=== PATIENT | male | born 1950 | race Caucasian/White ===

== ENCOUNTER 2024-10-12 14:04 | Emergency (ER) | payer MEDICAID, OTHER, SELFPAY ==
[2024-10-12] VITALS (8 sets, daily range): BP systolic 106–152; BP diastolic 56–82; PULSE 73–86; RESP 16–20; TEMP 36.3–37.1; O2SAT 94–98; BMI 30.8
--- NOTE | 2024-10-12 | ECG_ITS ---
Test Reason : sob Blood Pressure : */* mmHG Vent. Rate : 78 BPM Atrial Rate : 78 BPM P-R Int : 142 ms QRS Dur : 76 ms QT Int : 336 ms P-R-T Axes : 81 72 59 degrees QTcB Int : 383 ms Normal sinus rhythm Normal ECG No previous ECGs available Referred By: Brittney Echevarria Electronically Signed By: NISHA ANDREW
--- NOTE | ~2024-10-12 | XR_ITS ---
CLINICAL HISTORY: cough, r o pna 1 view chest x-ray Comparison: None Findings: The lungs are clear. Normal size heart. No acute fracture. IMPRESSION: 1. No acute findings. This document has been electronically signed by: Iram Wylie MD on 10/12/2024 16:59:03
[2024-10-12 15:13] LABS: MANUAL DIFF FLAG NO
[2024-10-12 15:18] LABS: Basophils Percent Auto 0.3 % (0-2); Eosinophils Absolute Auto 0.1 X10*3/uL (0.0-0.4); Eosinophils Percent Auto 0.6 % (0-4); Hematocrit 40.4 % (42.0-52.0); Hemoglobin 13.5 g/dl (14.0-18.0); Imm Gran Abs Auto 0.03 X10*3/uL (0.00-0.03); Imm Gran Pct Auto 0.4 % (0.0-0.4); Lymphocytes Absolute Auto 3.4 X10*3/uL (1.2-4.9); Lymphocytes Percent Auto 42.9 % (20-40); Mean Corpuscular HGB Conc 33.4 g/dl (31.0-36.0); Mean Corpuscular Hemoglobin 29.3 pg (27.0-33.0); Mean Corpuscular Volume 87.8 fL (80.0-98.0); Mean Platelet Volume 9.2 fL (9.4-12.4); Monocytes Absolute Auto 0.9 X10*3/uL (0.1-1.2); Monocytes Percent Auto 10.9 % (2-11); Neutrophils Absolute Auto 3.5 x10*3/uL (2.0-8.3); Neutrophils Percent Auto 44.9 % (45-73); Platelet Count 232 X10*3/uL (160-400); Red Cell Distribution Width 12.8 % (11.0-16.0); White Blood Count 7.8 X10*3/uL (4.8-10.8)
[2024-10-12 15:37] LABS: Alanine Aminotransferase 26 U/L (0-40); Albumin Level 3.6 g/dL (3.5-5.0); Anion Gap 11 (12-20); Aspartate Amino Transferase 24 U/L (5-37); Bilirubin Total 0.2 mg/dL (0.0-1.0); Blood Urea Nitrogen 20 mg/dL (9-16); Calcium 8.9 mg/dL (8.4-10.2); Carbon Dioxide 27 mmol/L (22-29); Chloride 103 mmol/L (96-108); Creatinine Clr Calc Pharmacy 90.4; Estimated Glomerular Filt Rate > 60; Glucose Random 127 mg/dL (60-115); Potassium 3.4 mmol/L (3.3-5.1); Sodium 138 mmol/L (135-145); Total Protein 7.2 g/dL (6.5-8.0)
--- NOTE | 2024-10-12 15:52 | MHC.EDTECH ---
This pct assumed care of Patient at 1500 ,vitals taken ,Patient resting quietly in bed ,no apparent distress noted ,Plan of care continue .Call swain within Pt reach .
[2024-10-12 15:53] LABS: Alkaline Phosphatase 76 U/L (39-117)
--- OUTSIDE RECORDS SUMMARY | 2024-10-12 16:09 | XMS_ITS | Clinical Summary ---
Author Organization [employer] Address [address] [facility] [address] [place] [address] Care Team Providers Care Senior Scrum Master Name Role Phone Unavailable Primary Care Provider Unavailabl e Medications No known medications Active Problems Problem Noted Date Diagnosed Date Fibromyalgia 10/12/2024 Assessment & Plan (10/12/2024 1:42 PM EST): Reported hx of fibromyalgia treated oversees. Ran out of medication and been waiting for new patient appt to establish care. Discussed and given reassurance pt is on new patient list at [facility]. Hearing loss 10/12/2024 Vision loss 10/12/2024 Hemoptysis 10/12/2024 Assessment & Plan (10/12/2024 1:40 PM EST): Cough x2 weeks that keeps worsening with recent hemoptysis. On exam pt is tachypneic, hypoxic with O2 SAT 94%, involving accessory muscle use and seemingly in respiratory distress. Blood pressure is soft. Given above mentioned respiratory symptoms and presentation along th age will send pt to [facility] ER for further evaluation and treatment. Respiratory distress determined by examination 0 10/12/2024 Assessment & Plan (10/12/2024 1:41 PM EST): Pt is tachypneic, hypoxic with O2 SAT 94%, involving accessory muscle use and appears to be in acute respiratory distress. Will send to [facility] ER for further evaluation and treatment. Encounters Date Type Department Care Team Description 10/12/2024 1:20 PM EST Office Visit [facility] [address] [place] [address] Katelin Chaudhary MD Hemoptysis (Primary Dx); Respiratory distress determined by examination; Fibromyalgia 10/11/2024 Telephone [facility] [address] [place] [address] Gumaro Arana MD new pt from Last 3 Months Social History Tobacco Use Types Packs/Day Years Used Date Smoking Tobacco: Never Assessed Sex and Gender Information Value Date Recorded Sex Assigned at Male 10/12/2024 10:54 AM EST Legal Sex Male 1:26 PM EST Gender Identity Male 10/12/2024 10:54 AM EST Sexual Orientation Straight 10/12/2024 10 :54 AM EST Last Filed Vital Signs Vital Sign Reading Time Taken Comments Blood Pressure 138/80 10/12/2024 1:16 PM EST Pulse 104 10/12/2024 1:16 PM EST Temperature 36 ??C (96.8 ??F) 10/12/2024 1:16 PM EST Respiratory Rate 32 10/12/2024 1:16 PM EST Oxygen Saturation 94% 10/12/2024 1:16 PM EST Inhaled Oxygen Concentration - - Weight 72.7 kg (160 lb 3.2 oz) 10/12/2024 1:16 P M EST Height - - Body Mass Index - - Plan of Treatment Health Maintenance Due Date Last Done Comments CT Colonography 1950 Colonoscopy 1950 Colorectal Cancer Screening 1950 Depression Screening 1950 FIT DNA/Cologuard 1950 FIT 1950 FOBT 1950 Lipid Panel 1950 SDOH Screening 1950 Sigmoidoscopy 1950 Alcohol/Substance Use Screening 1962 Tobacco Screening 1962 Hepatitis C Screening 1968 DTaP/Tdap/Td Vaccines (1 - Tdap) 1969 Zoster Vaccines (1 of 2) 2000 Pneumococcal Vaccine: 65+ Ye ars (1 of 1 - PCV) 2015 COVID-19 Vaccine ( - 2023-2 5 season) 2024 Influenza Vaccine (#1) 2024 RSV Patients and Pa tients Aged 60 years or older (1 - 1-dose 75+ series) 2025 HIB Vaccines Aged Out No longer eligi ble based on patient's age to complete this topic HPV Vaccines Aged Out No longer eligi ble based on patient's age to complete this topic Hepatitis A Vaccines Aged Out No long er eligible based on patient's age to complete this topic Hepatitis B Vaccines Aged Out No long er eligible based on patient's age to complete this topic IPV Vaccines Aged Out No longer eligi ble based on patient's age to complete this topic Meningococcal Vaccine Aged Out No killian tyler eligible based on patient's age to complete this topic RSV under 20 months Aged Out No longe r eligible based on patient's age to complete this topic Rotavirus Vaccines Aged Out No longer eligible based on patient's age to complete this topic Insurance [employer] [facility]
--- OUTSIDE RECORDS SUMMARY | 2024-10-12 16:09 | XMS_ITS | Encounter Summary ---
Author Organization [employer] Address [address] [facility] [address] [place] [address] Care Team Providers Care Rv Repair Technician Name Role Phone Unavailable Primary Care Provider Unavailabl e Reason for Visit * Reason Onset Date Comments new pt 10/11/2024 Encounter Details Date Type Department Care Team (Late st Contact Info) Description 10/11/2024 Telephone [facility] [address] [place], [place] [phone] Gumaro Arana MD [address] [place], [place] [phone] new pt Social History Tobacco Use Types Packs/Day Years Used Date Smoking Tobacco: Never Assessed Sex and Gender Information Value Date Recorded Sex Assigned at Male 10/12/2024 10:54 AM EST Legal Sex Male 1:26 PM EST Gender Identity Male 10/12/2024 10:54 AM EST Sexual Orientation Straight 10/12/2024 10 :54 AM EST documented as of this encounter Miscellaneous Notes * Telephone Encounter - Albania Puentes - 10/11/2024 3:36 PM EST Patient added to [facility] new patient wait list as of 10/11/24. * Telephone Encounter - Umesh Ferguson - 10/11/2024 1:29 PM EST TC from caller requesting NEW PATIENT visit . DX : daughter said a couple Medical Concern: Hearing issues Vision Loss Fibromyalgia Insurance name : [employer] Location : [place] Demographic information updated documented in this encounter Plan of Treatment Not on file documented as of this encounter Visit Diagnoses Not on filedocumented in this encounter
--- OUTSIDE RECORDS SUMMARY | 2024-10-12 16:09 | XMS_ITS | Encounter Summary ---
Author Organization [employer] Address [address] [facility] [address] [place] [address] Care Team Providers Care Flight Attendant/Inflight Manager Name Role Phone Unavailable Primary Care Provider Unavailabl e Encounter Details Date Type Department Care Team (Late st Contact Info) Description 10/12/2024 1:20 PM EST Office Visit [facility] [address] [place] [address] Katelin Chaudhary MD [address] [place], [place] [phone] Hemoptysis (Primary Dx); Respiratory distress determined by examination; Fibromyalgia Social History Tobacco Use Types Packs/Day Years Used Date Smoking Tobacco: Never Assessed Sex and Gender Information Value Date Recorded Sex Assigned at Male 10/12/2024 10:54 AM EST Legal Sex Male 1:26 PM EST Gender Identity Male 10/12/2024 10:54 AM EST Sexual Orientation Straight 10/12/2024 10 :54 AM EST documented as of this encounter Last Filed Vital Signs Vital Sign Reading [...] - - Body Mass Index - - documented in this encounter Progress Notes * Justin Carrion - 10/12/2024 1:20 PM EST Subjective Patient ID: Griselda West is a 74 y.o. male with unknown medical history who presents to walk in clinic for cough. Added to [facility] new patient list 10/11/24. Pt presents with his daughter who reports he has been having trouble breathing and coughing for about 2 weeks. She says she took him to [facility] ER and they did a CXR. Daughter reports she also took himto urgent care last week where he was given and antibiotic and cough medicine. She says he completed the hole course but is still coughing and appears to e worse than he was when she took him to the ER. Daughter reports he is coughing up blood. Per daughter pt has hx of fibromyalgia and had medication he was taking for total body pains when they lived oversees and he has now run out. Review of Systems Constitutional: Negative for fever and unexpected weight change. Respiratory: Positive for cough and shortness of breath. Cardiovascular: Negative for chest pain. Gastrointestinal: Negative for abdominal pain. Genitourinary: Negative for difficulty urinating. Objective Visit Vitals BP 138/80 (BP Location: Right arm, Patient Position: Sitting, BP Cuff Size: Adult) Pulse 104 Temp 96.8 ??F (36 ??C) (Temporal) Resp (!) 32 Wt 160 lb 3.2 oz (72.7 kg) SpO2 94% Physical Exam Constitutional: Appearance: Normal appearance. He is ill-appearing. Cardiovascular: Rate and Rhythm: Normal rate and regular rhythm. Heart sounds: Normal heart sounds. Pulmonary: Effort: Tachypnea, accessory muscle usage and respiratory distress present. Breath sounds: Decreased air movement present. Rhonchi (scattered) present. Comments: Hypoxic O2 94% Abdominal: General: Abdomen is flat. Palpations: Abdomen is soft. Tenderness: There is no abdominal tenderness. Skin: General: Skin is warm and dry. Neurological: Mental Status: He is alert. Mental status is at baseline. Psychiatric: Behavior: Behavior normal. Problem List Items Addressed This Visit Hemoptysis - Primary Cough x2 weeks that keeps worsening with recent hemoptysis. On exam pt is tachypneic, hypoxic with O2 SAT 94%, involving accessory muscle use and seemingly in respiratory distress. Blood pressure is soft. Given above mentioned respiratory symptoms and presentation along th age will send pt to [facility] ER for further evaluation and treatment. Respiratory distress determined by examination Pt is tachypneic, hypoxic with O2 SAT 94%, involving accessory muscle use and appears to be in acute respiratory distress. Will send to [facility] ER for further evaluation and treatment. Fibromyalgia Reported hx of fibromyalgia treated oversees. Ran out of medication and been waiting for new patient appt to establish care. Discussed and given reassurance pt is on new patient list at [facility]. Pt is ill-appearing, tachypneic, hypoxic and in respiratory distress. Unsure of medical history as pt is a new patient without any medical records. Pt reported coughing x2 weeks with recent hemoptysis. Given recent worsening of symptoms, age and respiratory distress will send pt via ambulance to [facility] ER. I, Justin Carrion, am serving as a scribe to document services personally performed by Dr. Scott, based on the patient's response to questions by provider and providers statements to me. * Jess Landrum RN - 10/12/2024 1:20 PM EST Pt placed on 2L oxygen via nasal cannula per verbal order per Dr. Chaudhary. EMS called per verbal order per Dr. Chaudhary with request to go to [facility]. EMS arrived and given verbal report. Pt being transported at [facility] pending EMS evaluation. Pt to F/U upon discharge. RN verbally spoke with daughter as daughter inquiring on follow up appt. RN informed daughter we usually receive information after discharge but advised if pt/daughter does not hear back in the few days after discharge, to call [facility] for follow up/new pt appt. Daughter verbalized understanding and in agreement. Daughter/pt to F/U as needed. documented in this encounter Miscellaneous Notes * Assessment & Plan Note - Justin Carrion - 10/12/2024 1:42 PM ESTAssociated Problem(s): Fibromyalgia Reported hx of fibromyalgia treated oversees. Ran out of medication and been waiting for new patient appt to establish care. Discussed and given reassurance pt is on new patient list at [facility]. * Assessment & Plan Note - Justin Carrion - 10/12/2024 1:41 PM ESTAssociated Problem(s): Respiratory distress determined by examination Pt is tachypneic, hypoxic with O2 SAT 94%, involving accessory muscle use and appears to be in acute respiratory distress. Will send to [facility] ER for further evaluation and treatment. * Assessment & Plan Note - Justin Carrion - 10/12/2024 1:40 PM ESTAssociated Problem(s): Hemoptysis Cough x2 weeks that keeps worsening with recent hemoptysis. On exam pt is tachypneic, hypoxic with O2 SAT 94%, involving accessory muscle use and seemingly in respiratory distress. Blood pressure is soft. Given above mentioned respiratory symptoms and presentation along th age will send pt to [facility] ER for further evaluation and treatment. documented in this encounter Plan of Treatment Not on file documented as of this encounter Visit Diagnoses Diagnosis Hemoptysis- Primary Respiratory distress determined by examination Fibromyalgia Unspecified myalgia and myositis documented in this encounter
--- NOTE | 2024-10-12 16:28 | ED_ITS ---
HPI - SOB/Dyspnea General Chief Complaint: Dyspnea Stated Complaint: PRODUCTIVE COUGH W/CP ON INHALATION PER EMS Time Seen by Provider: 10/12/24 14:29 Source: patient, family and EMS Mode of arrival: EMS Limitations: no limitations and other (Italian speaking) History of Present Illness ED Provider: Dr. Brittney Echevarria HPI Narrative: Patient comes to the emergency room complaining of 2 weeks of worsening shortness of breath. Patient states that 2 weeks ago he was diagnosed with bronchitis, treated at home with antibiotics. Patient states that over the last couple of days, he has noticed that the cough is getting worse, constantly coughing, patient states that he feels tightness in his chest when he breathes. To his knowledge he has never been diagnosed with asthma or COPD. Related Data Previous Rx's ?Medication ?Instructions ?Recorded albuterol sulfate 90 mcg/actuation 2 puff inhalation Q4-6H PRN 10/12/24 aerosol inhaler shortness of breath or wheezing #8.5 grams benzonatate 100 mg capsule 100 mg PO TID PRN cough #12 caps 10/12/24 oseltamivir 75 mg capsule (Tamiflu) 75 mg PO BID 5 days #10 caps 10/12/24 prednisone 50 mg tablet 50 mg PO DAILY #5 tabs 10/12/24 Allergies Allergy/AdvReac Type Severity Reaction Status Date / Time No Known Allergies Allergy Verified 10/12/24 14:28 Review of Systems 2 Review of Systems: Constitutional : No Weight loss, No Fever, No Chills, No Night Sweats, No Fatigue, No Malaise ENT/Mouth : No Hearing loss, No Ear Pain, No Nasal Congestion, No Sinus Pain, No Hoarseness, No sore throat, No Rhinorrhea, No Swallowing Difficulty Eyes: No Eye Pain, No Swelling, No Redness, No Foreign Body, No Discharge, No Vision Changes Cardiovascular : No Chest Pain, No SOB, No Dyspnea on Exertion, No Orthopnea, No Edema, No Palpitations Respiratory : Complaining of cough, wheezing, shortness of breath Gastrointestinal : No Nausea, No Vomiting, No Diarrhea, No Constipation, No abdominal Pain, No Hematochezia, No Melena Genitourinary : no irregular bleeding, No Dysuria, No Urinary Frequency, No Hematuria, No Urinary Incontinence, No Urgency, No Flank Pain, No Urinary Flow Changes, No Hesitancy Musculoskeletal : No joint pain, No Myalgias, No Joint Swelling Skin : No Skin Lesions, No rash Neuro : No Weakness, No Numbness, No Paresthesias, No Loss of Consciousness, No Dizziness, No Headache Psych : No Anxiety/Panic, No Depression, No SI/HI/AH/VH, No Social Issues, Heme/Lymph: No Bruising, No Bleeding,No Lymphadenopathy Endocrine : No Polyuria, No Polydipsia, No Temperature Intolerance [facility] Social History Social History Smoked in Last 30 Days: No Use of substances other than those prescribed or required for medical reasons: No Advance Directives: No Advance Directives Information Provided: Yes Do you have a plan to hurt others: No Plan Physical Exam 2 Vital Signs: Vital Signs: Last Vital Signs Temp 97.7 F 10/12/24 17:47 Pulse 86 10/12/24 17:47 Resp 16 10/12/24 17:47 BP 124/56 L 10/12/24 17:47 Pulse Ox 96 10/12/24 17:47 O2 Del Method Room Air 10/12/24 17:47 BMI result Body Mass Index 30.8 Const: Other: Appearance: Alert. Oriented X3. No acute distress. Eyes: Pupils equal, round and reactive to light. ENT: Pharynx normal. Neck: Normal inspection. Neck supple. No lymph nodes noted. No crepitus CVS: Normal heart rate and rhythm. Pulses normal. Normal S1 and S2 Respiratory: Patient has bilateral wheezing, no crackles Abdomen: Soft and nontender. No rigidity. No distention. Skin: Skin warm and dry. Normal skin color. Normal skin turgor. Extremities: No lower extremity edema. No Lacerations. No Rash Neuro: Oriented X 3. No motor deficit. No sensory deficit. Moving all extremities. No slurred speech. CN 2 through 12 grossly intact Psych: calm, cooperative, normal affect Medications Administered Discontinued Medications Generic Name Dose Route Start Last Admin Trade Name Freq PRN Reason Stop Dose Admin Albuterol Sulfate 2.5 mg/ 0 mg 10/12/24 16:38 10/12/24 16:40 Albuterol/Ipratropium 3 ml INHALE 10/12/24 16:39 1 dose ONCE ONE Administration Magnesium Sulfate 2 gm in 50 mls @ 25 mls/hr 10/12/24 16:24 10/12/24 17:18 Magnesium Sulfate/H2o IV 10/12/24 18:23 25 mls/hr ONCE ONE Administration Methylprednisolone Sodium Succinate 125 mg 10/12/24 16:24 10/12/24 17:18 Methylprednisolone Sod Succ 125 Mg/2 Ml Vial IVPUSH 10/12/24 16:25 125 mg ONCE ONE Administration Medical Decision Making Medical Decision Making [facility] Narrative: My interpretation of labs, no significant abnormality in patient's hematology and chemistry. Serology positive for influenza A Patient remains 95% on room air, 94% walking, no oxygen desaturations. Patient feeling well. Patient feels well to go home Differential Diagnosis Differential Diagnoses: The differential diagnosis associated with the presentation includes (Influenza, RSV, COVID, pneumonia) Admission/Observation Consideration of admission/observation: Escalation of care including admission/observation considered (Given patient's age and symptoms and presentation, observation was considered) Lab Data [facility] Lab Attestation statement: I reviewed the patient's lab results. 10/12/24 15:08 10/12/24 15:08 Labs: Lab Results 10/12/24 10/12/24 Range/Units 15:08 16:35 WBC 7.8 (4.8-10.8) X10*3/uL RBC 4.60 (4.60-5.80) X10*6/uL Hgb 13.5 L (14.0-18.0) g/dl Hct 40.4 L (42.0-52.0) % MCV 87.8 (80.0-98.0) fL MCH 29.3 (27.0-33.0) pg MCHC 33.4 (31.0-36.0) g/dl RDW 12.8 (11.0-16.0) % Plt Count 232 (160-400) X10*3/uL MPV 9.2 L (9.4-12.4) fL Immature Gran % (Auto) 0.4 (0.0-0.4) % Neut % (Auto) 44.9 L (45-73) % Lymph % (Auto) 42.9 H (20-40) % [place] % (Auto) 10.9 (2-11) % Eos % (Auto) 0.6 (0-4) % Baso % (Auto) 0.3 (0-2) % Lymph # (Auto) 3.4 (1.2-4.9) X10*3/uL [place] # (Auto) 0.9 (0.1-1.2) X10*3/uL Eos # (Auto) 0.1 (0.0-0.4) X10*3/uL Baso # (Auto) 0.0 (0.0-0.2) X10*3/uL Abs Immat Gran (auto) 0.03 (0.00-0.03) X10*3/uL Absolute Neuts (auto) 3.5 (2.0-8.3) x10*3/uL Absolute Nucleated RBC 0.000 (0.0-0.012) X10*3/uL Nucleated RBC % (auto) 0.0 (0.0-0.2) /100WBC Sodium 138 (135-145) mmol/L Potassium 3.4 (3.3-5.1) mmol/L Chloride 103 (96-108) mmol/L Carbon Dioxide 27 (22-29) mmol/L Anion Gap 11 L (12-20) BUN 20 H (9-16) mg/dL Creatinine 0.70 (0.5-1.4) mg/dL Estim Creat Clear Calc 90.4 Estimated GFR > 60 Random Glucose 127 H (60-115) mg/dL Calcium 8.9 (8.4-10.2) mg/dL Total Bilirubin 0.2 (0.0-1.0) mg/dL AST 24 (5-37) U/L ALT 26 (0-40) U/L Alkaline Phosphatase 76 (39-117) U/L Troponin I High Sens < 2.7 (<3.5-35.0) ng/L B-Natriuretic Peptide < 10 (<100) pg/mL Total Protein 7.2 (6.5-8.0) g/dL Albumin 3.6 (3.5-5.0) g/dL Triglycerides 314 H (<150) mg/dL Cholesterol 186 (<200) mg/dL LDL Cholesterol, Calc 97 (<100) mg/dL HDL Cholesterol 27 L (>40) mg/dL Influenza Type A (PCR) POSITIVE A (Negative) Influenza Type B (PCR) NEGATIVE (Negative) RSV RNA Qual (PCR) NEGATIVE (Negative) SARS-CoV-2 RNA (RT-PCR) NEGATIVE (Negative) Radiology Impression Discussion of test interpretation with radiology: I have reviewed the radiologist's reading. Radiologist Impression: Findings: The lungs are clear. Normal size heart. No acute fracture. IMPRESSION: 1. No acute findings. Critical Care Time Critical Care Time Critical Care Time: Yes Total Critical Care Time: 35 Attestation: I have personally provided critical care time. Time includes review of lab data, radiology results, discussion with consultants, and monitoring for potential decompensation. Intervention performed as documented. Discharge Plan Discharge Clinical Impression: Influenza A, Bronchitis Patient Disposition: Home, Self-Care Instructions: Influenza (ED), Acute Bronchitis (ED) Additional Instructions: Please follow-up with your primary care physician tomorrow. If you have any worsening or new symptoms, please return to the emergency room or call 911 Prescriptions: New oseltamivir [Tamiflu] 75 mg capsule 75 mg PO BID 5 Days Qty: 10 0RF prednisone 50 mg tablet 50 mg PO DAILY Qty: 5 0RF albuterol sulfate 90 mcg/actuation HFA aerosol inhaler 2 puff inhalation Q4-6H PRN (Reason: shortness of breath or wheezing) Qty: 8.5 1RF benzonatate 100 mg capsule 100 mg PO TID PRN (Reason: cough) Qty: 12 0RF Print Language: Italian
[2024-10-12] MEDS: Albuterol Sulfate 2.5 MG, Albuterol/Iprat 2.5/0.5MG 3 ML 3 ML INHALE (16:40)
[2024-10-12 17:02] LABS: Troponin-I High Sensitivity < 2.7 ng/L (<3.5-35.0)
[2024-10-12 17:05] LABS: B Type Natriuretic Peptide < 10 pg/mL (<100)
[2024-10-12 17:16] LABS: Influenza A PCR POSITIVE (Negative); Influenza B PCR NEGATIVE (Negative); Resp Syncy Virus RNA Qual PCR NEGATIVE (Negative); SARS COV2 PCR INHOUSE NEGATIVE (Negative)
[2024-10-12] MEDS: Magnesium Sulfate/H2O 2 GM/50 ML PIGGYBACK IV (17:18)
[2024-10-12] MEDS: methylPREDNISolone Sod Succ 125 MG/2 ML VIAL IVPUSH (17:18)
[2024-10-12 17:30] LABS: Cholesterol 186 mg/dL (<200); HDL Cholesterol 27 mg/dL (>40); LDL Cholesterol Calculated 97 mg/dL (<100); Triglycerides 314 mg/dL (<150)
--- NOTE | 2024-10-12 18:32 | MHC.EDTECH ---
pt trial ambulated at rest pt presents as 93% on RA during ambulation pt presents with 93-94% on RA Dr. Echevarria aware
[2024-10-12] MEDS: Benzonatate 100 MG CAPSULE PO (19:02)
[2024-10-12] MEDS: Oseltamivir Phosphate 75 MG CAPSULE PO (19:02)
[2024-10-12] MEDS: predniSONE 20 MG TABLET 60 MG PO (19:02)
== END 2024-10-12 19:38 | disposition home or self-care (01) ==
PROVIDERS: Emergency Provider Emergency Medicine
DX: J10.1 Influenza due to other identified influenza virus with other respiratory manifestations (principal); J40 Bronchitis, not specified as acute or chronic; R06.02 Shortness of breath; R05.9 Cough, unspecified; Z03.818 Encounter for observation for suspected exposure to other biological agents ruled out; R07.9 Chest pain, unspecified
CPT/HCPCS: 0241U; 71045; 80053; 80061; 83880; 84484; 85025; 93005; 94640; 96365; 96366; 99284; 99285; J2919; J3475

== ENCOUNTER → 2024-10-12 14:56 | Outpatient (BNV) | payer MEDICAID, SELFPAY | PROVIDERS: Emergency Provider Emergency Medicine; Visit Provider Internal Medicine | DX: R06.02 Shortness of breath (principal) | CPT/HCPCS: 93010 ==

== ENCOUNTER → 2024-10-12 16:24 | Outpatient (BNV) | payer MEDICAID, SELFPAY | PROVIDERS: Emergency Provider Emergency Medicine; Visit Provider Radiology Diagnostic Radiology | DX: R05.9 Cough, unspecified (principal) | CPT/HCPCS: 71045 ==

== ENCOUNTER 2024-11-26 10:53 | Outpatient (REF) | payer SELFPAY ==
--- NOTE | ~2024-11-26 | XR_ITS ---
EXAMINATION: XR LUMBOSACRAL SPINE CLINICAL INFORMATION: PAIN COMPARISON: None available. TECHNIQUE: Three views of the lumbosacral spine. FINDINGS: No scoliosis. Normal lordosis. Mild osteopenia. No fracture, compression deformity, or suspicious bone lesion. There is a 14 mm spondylolisthesis at L4-5. There are bilateral full-thickness pars defects. Severe disc degeneration L4-5 with disc vacuum phenomenon and sclerosis of the endplates. Disc spaces are otherwise relatively preserved. Facets demonstrate normal alignment. There is severe hypertrophic facet arthropathy at L4-5. Unremarkable appearing sacrum and SI joints. Mild vascular calcifications in the soft tissues. XR/XR lumbar spine 2-3V IMPRESSION: 1. No acute bony abnormalities. 2. Grade 1/2 spondylolisthesis L4-5, with severe associated disc degeneration. Electronically signed by: Hernan Galo MD 11/26/2024 02:35 PM EDT
--- OUTSIDE RECORDS SUMMARY | 2024-11-26 12:32 | XMS_ITS | Clinical Summary ---
Author Organization [facility] Address [address] [place] [address] Phone Care Team Providers Care Insurance Salesperson Name Role Phone Physician, No Pcp Primary Care Provider Unavaila ble Allergies No known active allergies Medications albuterol HFA (PROAIR HFA ; PROVENTIL HFA ; VENTOLIN HFA) 90 mcg/actuation inhaler Inhale 2 puffs by mouth every 4 (four) hours if needed for wheezing or shortness of breath. 1 each Active Encounters Date Type Department Care Team Description 09/25/2024 10:07 PM EST - 09/26/2024 4:32 AM EST Emergency [facility] Emergency [address] [place] [address] COPD exacerbation (CMS/HCC) (Primary Dx); Blurry vision, bilateral Discharge Disposition: Home or Self Care from Last 3 Months Medical History Medical History Date Comments Asthma COPD (chronic obstructive pulmonary disease) (CM S/HCC) Social History Tobacco Use Types Packs/Day Years Used Date Smoking Tobacco: Former Cigarettes Smokeless Tobacco: Former Tobacco Cessation:Counseling Given: Not Answered Alcohol Use Standard Drinks/Week Comments Never 0 (1 standard drink = 0.6 oz pur e alcohol) Sex and Gender Information Value Date Recorded Sex Assigned at Not on file Legal Sex Male 4:50 PM EST Gender Identity Not on file Sexual Orientation Not on file Obstetrics History Last Filed Vital Signs Vital Sign Reading Time Taken Comments Blood Pressure 131/72 09/25/2024 10:23 PM EST Pulse 69 09/25/2024 10:23 PM EST Temperature 36.7 ??C (98 ??F) 09/25/2024 10:23 PM EST Respiratory Rate 17 09/25/2024 10:23 PM EST Oxygen Saturation 96% 09/25/2024 10:23 PM EST Inhaled Oxygen Concentration - - Weight 81.4 kg (179 lb 8 oz) 09/25/2024 5:03 PM EST Height 157.5 cm (5' 2 ) 09/25/2024 5:03 PM EST Body Mass Index 32.83 09/25/2024 5:03 PM EST Plan of Treatment Health Maintenance Due Date Last Done Comments DTaP,Tdap,and Td Vaccines (1 - Tdap) 1969 Pneumococcal Vaccine: 50+ Ye ars (1 of 2 - PCV) 1969 Zoster Vaccines (1 of 2) 2000 RSV Immunization Patients 60 + Years Old (1 - Risk 60-74 years 1-dose series) 2010 COVID-19 Vaccine (2023-2 5 season) 2024 Influenza Vaccine (#1) 2024 Abdominal Aortic Aneurysm (A AA) Screen 09/25/2024 Cholesterol Screening (Lipid Panel) 09/25/2024 Colorectal Cancer Screening: Colonoscopy 09/25/2024 Depression Screening 09/25/2024 Falls Risk Assessment 09/25/2024 Hepatitis C Screening 09/25/2024 Social Influencers of Health Screening 09/25/2024 HIB Vaccines Aged Out No longer eligi [...] on patient's age to complete this topic MMR Vaccines Aged Out No longer eligi ble based on patient's age to complete this topic Meningococcal ACWY Vaccine Aged Out N o longer eligible based on patient's age to complete this topic Meningococcal B Vacine Aged Out No lo nger eligible based on patient's age to complete this topic RSV Immunization Patients Un dave 20 months Aged Out No longer eligible b ased on patient's age to complete this topic Varicella Vaccines Aged Out No longer eligible based on patient's age to complete this topic Procedures Procedure Name Priority Date/Time Associated Diagnosis Comments CT HEAD WO CONTRAST STAT 09/26/2024 2 :04 AM EST RESPIRATORY VIRUS PANEL MOLECULAR STUDY STAT 09/25/2024 11:45 PM EST POCT GLUCOSE BLOOD Routine 09/25/2024 10 :21 PM EST XR CHEST 2 VIEWS STAT 09/25/2024 7:54 PM EST CBC WITH AUTO DIFFERENTIAL STAT 09/25/2024 5:40 PM EST B-TYPE NATRIURETIC PEPTIDE STAT 09/25/2024 5:40 PM EST BASIC METABOLIC PANEL STAT 09/25/2024 5:40 PM EST CBC AND DIFFERENTIAL STAT 09/25/2024 5:40 PM EST ECG 12-LEAD STAT 09/25/2024 5:36 PM EST ECG ANNOTATED 09/25/2024 from Last 3 Months Results * CT Head wo Contrast (09/26/2024 2:04 AM EST) Anatomical Region Laterality Modality Head and Neck Computed Tomogra phy 09/26/2024 3:04 AM EST Impressions 09/26/2024 3:04 AM EST 1. No acute disease in the brain. This document has been electronically signed by: Danny Guzman M.D. on 09/26/2024 03:04:22 Narrative 09/26/2024 3:[address] BRAIN WITHOUT CONTRAST COMPARISON: None. FINDINGS: There is mild parenchymal atrophy. There is no evidence of an acute infarct or intraparenchymal hemorrhage. 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 Patchy areas of low attenuation are noted in the subcortical and periventricular regions of the supratentorial brain which are nonspecific but most likely represent chronic small vessel ischemic disease. There is no mass effect, midline shift, or extra-axial blood. The ventricles are normal in size without evidence of hydrocephalus. The bone windows are unremarkable. 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 Orbits are grossly unremarkable. Procedure Note Danny Guzman MD - 09/26/2024 CT BRAIN WITHOUT CONTRAST COMPARISON: None. FINDINGS: There is mild parenchymal atrophy. There is no evidence of an acute infarct or intraparenchymal hemorrhage. 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 Patchy areas of low attenuation are noted in the subcortical and periventricular regions of the supratentorial brain which are nonspecific but most likely represent chronic small vessel ischemic disease. There is no mass effect, midline shift, or extra-axial blood. The ventricles are normal in size without evidence of hydrocephalus. The bone windows are unremarkable. 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 Orbits are grossly unremarkable. IMPRESSION: 1. No acute disease in the brain. This document has been electronically signed by: Danny Guzman M.D. on 09/26/2024 03:04:22 Aleah [facility] [place] PROCEDURES Final Result * Respiratory virus panel molecular study (09/25/2024 11:45 PM EST) Adenovirus Detection by PCR Not Detected Not Detected LAB MICROBIOLOGY METHOD 09/26/2024 2:56 AM [facility] Influenza A PCR Not Detected Not Detected LAB MICROBIOLOGY METHOD 09/26/2024 2:56 AM [facility] Influenza B PCR Not Detected Not Detected LAB MICROBIOLOGY METHOD 09/26/2024 2:56 AM [facility] Coronavirus 229E Not Detected Not Detected LAB MICROBIOLOGY METHOD 09/26/2024 2:56 AM [facility] Coronavirus HKU1 Not Detected Not Detected LAB MICROBIOLOGY METHOD 09/26/2024 2:56 AM [facility] Coronavirus OC43 Not Detected Not Detected LAB MICROBIOLOGY METHOD 09/26/2024 2:56 AM [facility] Coronavirus NL63 Not Detected Not Detected LAB MICROBIOLOGY METHOD 09/26/2024 2:56 AM [facility] Parainfluenza Virus 1 Not Detected Not Detected LAB MICROBIOLOGY METHOD 09/26/2024 2:56 AM [facility] Parainfluenza Virus 2 Not Detected Not Detected LAB MICROBIOLOGY METHOD 09/26/2024 2:56 AM [facility] Parainfluenza Virus 3 Not Detected Not Detected LAB MICROBIOLOGY METHOD 09/26/2024 2:56 AM [facility] Parainfluenza Virus 4 Not Detected Not Detected LAB MICROBIOLOGY METHOD 09/26/2024 2:56 AM [facility] RSV PCR Not Detected Not Detected LAB MICROBIOLOGY METHOD 09/26/2024 2:56 AM [facility] Human Metapneumovirus A and B Not Detected Not Detected LAB MICROBIOLOGY METHOD 09/26/2024 2:56 AM [facility] Rhinovirus/Entero virus Not Detected Not Detected LAB MICROBIOLOGY METHOD 09/26/2024 2:56 AM [facility] Bordetella pertussis Not Detected Not Detected LAB MICROBIOLOGY METHOD 09/26/2024 2:56 AM [facility] Bordetella parapertussis Not Detected Not Detected LAB MICROBIOLOGY METHOD 09/26/2024 2:56 AM [facility] Mycoplasma pneumo by PCR Not Detected Not Detected LAB MICROBIOLOGY METHOD 09/26/2024 2:56 AM [facility] Chlamydia pneumoniae Not Detected Not Detected LAB MICROBIOLOGY METHOD 09/26/2024 2:56 AM [facility] SARS COV-2 Not Detected Not Detected LAB MICROBIOLOGY METHOD 09/26/2024 2:56 AM [facility] Swab Both anterior nares / Unknown Non-blood Collection / Unknown 09/25/2024 11:45 PM EST 09/26/2024 2:03 AM EST [facility] - 09/26/2024 2:56 AM EST Testing was performed using the [employer] Respiratory Pathogen PCR Assay. All results must be correlated with the clinical findings. Results should not be used as the sole basis for diagnosis. False Negative results may occur from the presence of sequence variants in the region targeted by the assay or the presence of inhibitors. Results may be affected by concurrent antiviral/antimicrobial therapy or levels of organisms that are below the limit of detection. Aleah SEGURA LAB MICROBIOLOGY - GENERAL ORDER KATRIN Final Result Performing Organization Address City/[facility]/ZIP Co de Phone Number [facility] [address] [place] [address], * (ABNORMAL) POCT Glucose, blood (09/25/2024 10:21 PM EST) [facility] Signature Glucose POCT 107(H) 70 - 100 mg/dL 09/25/2024 10:22 PM EST [facility] Blood Capillary blood specimen / Unknown 09/25/2024 10:21 PM EST 09/25/2024 10:23 PM EST Generic Provider Poct LAB POINT OF CARE TEST DOCKED DEVICE UNSOLICITED RESULTS Final Result Performing Organization Address [facility]/ZIP Co de Phone Number [facility] [address] [place] [address], * XR Chest 2 Views (09/25/2024 7:54 PM EST) Anatomical Region Laterality Modality Body Radiographic Pebbles ging 09/26/2024 8:50 AM EST Impressions 09/26/2024 8:51 AM EST Increased lung volumes are noted. ??No acute infiltrate. ??Minimal blunting of the costophrenic angles may represent pleural thickening or minimal fluid. -------- FINAL REPORT -------- Dictated By: David Luevano Dictated Date: 09/26/2024 08:50 ET Assigned Physician: David Luevano Reviewed and Electronically Signed By: David Luevano Signed Date: 09/26/2024 08:51 ET Workstation ID: [id number] Transcribed By: Self Edit Transcribed Date: 09/26/2024 08:50 ET Narrative 09/26/2024 8:51 AM EST Frontal and lateral view of the chest COMPARISON: None INDICATION: Dyspnea Procedure Note David Luevano MD - 09/26/2024 Frontal and lateral view of the chest COMPARISON: None INDICATION: Dyspnea IMPRESSION: Increased lung volumes are noted. No acute infiltrate. Minimal bluntingof the costophrenic angles may represent pleural thickening or minimalfluid. -------- FINAL REPORT -------- Dictated By: David Luevano Dictated Date: 09/26/2024 08:50 ET Assigned Physician: David Luevano Reviewed and Electronically Signed By: David Luevano Signed Date: 09/26/2024 08:51 ET Workstation ID: [id number] Transcribed By: Self Edit Transcribed Date: 09/26/2024 08:50 ET Dong Dias MD IMG XR PROCEDURES Final R esult * CBC auto differential (09/25/2024 5:40 PM EST) WBC 7.5 4.8 - 10.8 K/mcL LAB HEMETOLOGY METHOD 09/25/2024 6:27 PM [facility] RBC 4.60 4.50 - 5.50 M/mcL LAB HEMETOLOGY METHOD 09/25/2024 6:27 PM [facility] Hemoglobin 13.7 13.5 - 17.5 g/dL LAB HEMETOLOGY METHOD 09/25/2024 6:27 PM [facility] Hematocrit 42.7 42.0 - 54.0 % LAB HEMETOLOGY METHOD 09/25/2024 6:27 PM [facility] MCV 92.6 79.0 - 98.0 FL LAB HEMETOLOGY METHOD 09/25/2024 6:27 PM [facility] MCH 29.7 27.0 - 32.0 pcg LAB HEMETOLOGY METHOD 09/25/2024 6:27 PM [facility] MCHC 32.1 32.0 - 37.0 g/dL LAB HEMETOLOGY METHOD 09/25/2024 6:27 PM [facility] RDW 12.7 11.0 - 15.0 % LAB HEMETOLOGY METHOD 09/25/2024 6:27 PM [facility] Platelets 223 130 - 400 K/mcL LAB HEMETOLOGY METHOD 09/25/2024 6:27 PM [facility] MPV 10.0 7.0 - 11.0 FL LAB HEMETOLOGY METHOD 09/25/2024 6:27 PM [facility] NRBC 0.0 <1.0 % LAB HEMETOLOGY METHOD 09/25/2024 6:27 PM [facility] NRBC Absolute 0.00 <0.10 K/mcL LAB HEMETOLOGY METHOD 09/25/2024 6:27 PM [facility] Neutrophils Relative 53.8 % LAB HEMETOLOGY METHOD 09/25/2024 6:27 PM [facility] Lymphocytes Relative 31.0 % LAB HEMETOLOGY METHOD 09/25/2024 6:27 PM [facility] Monocytes Relative 12.9 % LAB HEMETOLOGY METHOD 09/25/2024 6:27 PM [facility] Eosinophils Relative 1.2 % LAB HEMETOLOGY METHOD 09/25/2024 6:27 PM [facility] Basophils Relative 0.7 % LAB HEMETOLOGY METHOD 09/25/2024 6:27 PM [facility] Immature Granulocytes Relative 0.4 % LAB HEMETOLOGY METHOD 09/25/2024 6:27 PM [facility] Neutrophils Absolute 4.04 1.50 - 7.00 K/mcL LAB HEMETOLOGY METHOD 09/25/2024 6:27 PM EST [facility] Lymphocytes Absolute 2.33 1.00 - 5.00 K/mcL LAB HEMETOLOGY METHOD 09/25/2024 6:27 PM EST [facility] Monocytes Absolute 0.97 0.20 - 1.00 K/mcL LAB HEMETOLOGY METHOD 09/25/2024 6:27 PM EST [facility] Eosinophils Absolute 0.09 0.00 - 0.50 K/[facility] LAB HEMETOLOGY METHOD 09/25/2024 6:27 PM EST [facility] Basophils Absolute 0.05 0.00 - 0.20 K/[facility] LAB HEMETOLOGY METHOD 09/25/2024 6:27 PM EST [facility]) [facility] Immature Granulocytes Absolute 0.03 0.00 - 0.03 K/[facility] LAB HEMETOLOGY METHOD 09/25/2024 6:27 PM EST [facility] Blood Venous blood specimen / Unknown Venipuncture / Unknown 09/25/2024 5:40 PM EST 09/25/2024 6:17 PM EST us Dong Dias MD LAB BLOOD ORDERABLES Jacqueline l Result [facility] [address] [place] [address], * B-type natriuretic peptide (09/25/2024 5:40 PM EST) BNP 7 <=100 pcg/mL LAB CHEMISTRY METHOD 09/25/2024 6:53 PM EST [facility] Blood Venous blood specimen / Unknown Venipuncture / Unknown 09/25/2024 5:40 PM EST 09/25/2024 6:17 PM EST us Dong Dias MD LAB BLOOD ORDERABLES Jacqueline l Result [facility] [address] [place] [address], * (ABNORMAL) Basic metabolic panel (09/25/2024 5:40 PM EST) Sodium 136 133 - 145 mmol/L LAB CHEMISTRY METHOD 09/25/2024 6:45 PM EST [facility] Potassium 4.4 3.5 - 5.5 mmol/L LAB CHEMISTRY METHOD 09/25/2024 6:45 PM [facility] Chloride 100 96 - 110 mmol/L LAB CHEMISTRY METHOD 09/25/2024 6:45 PM [facility] CO2 33(H) 21 - 32 mmol/L LAB CHEMISTRY METHOD 09/25/2024 6:45 PM [facility] Anion Gap 3 3 - 11 LAB CHEMISTRY METHOD 09/25/2024 6:45 PM [facility] Glucose 135(H) 70 - 100 mg/dL LAB CHEMISTRY METHOD 09/25/2024 6:45 PM [facility] BUN 17 5 - 25 mg/dL LAB CHEMISTRY METHOD 09/25/2024 6:45 PM [facility] Creatinine 0.68(L) 0.70 - 1.30 mg/dL LAB CHEMISTRY METHOD 09/25/2024 6:45 PM [facility] eGFR 98 >=60 mL/min/1. 73m2 LAB CHEMISTRY METHOD 09/25/2024 6:45 PM [facility] Comment:Calculation based on the??Chronic Kidney Disease Epidemiology Collaboration (CKD-EPI) equation refit??without adjustment for race. BUN/Creatinine Ratio 25.0 LAB CHEMISTRY METHOD 09/25/2024 6:45 PM [facility] Calcium 8.8 8.5 - 10.5 mg/dL LAB CHEMISTRY METHOD 09/25/2024 6:45 PM [facility] Blood Venous blood specimen / Unknown Venipuncture / Unknown 09/25/2024 5:40 PM EST 09/25/2024 6:17 PM EST Dong Dias MD LAB BLOOD ORDERABLES Jacqueline l Result Performing Organization Address City/[facility]/ZIP Co de Phone Number [facility] [address] [place] [address], * ECG 12 lead (09/25/2024 5:36 PM EST) Ventricular Rate ECG 74 BPM GEMUSE Atrial Rate 74 BPM GEMUSE P-R Interval 160 ms GEMUSE QRS Duration 78 ms GEMUSE Q-T Interval 334 ms GEMUSE QTc 370 ms GEMUSE P Wave [place] 82 degrees GEMUSE R [place] 74 degrees GEMUSE T [place] 65 degrees GEMUSE ECG Interpretation Normal sinus rhythm Cannot rule out Anterior infarct , age undetermined Abnormal ECG No previous ECGs available Confirmed by ANDREW LÓPEZ ([id number]) on 09/25/2024 5:55:21 PM GEMUSE 09/25/2024 5:36 PM EST 09/25/2024 5:55 PM EST Dong Dias MD ECG ORDERABLES Final Res ult Performing Organization Address City/[facility]/ZIP Co de Phone Number GEMUSE * ECG-Annotated (09/25/2024) Provider Onbase ECG ORDERABLES Final Result from Last 3 Months Insurance MEDICAID - [place] Care Teams Insurance Salesperson Relationship Specialty Start Date End Date Physician, No Pcp PCP - General 09/26/24
[2024-11-26 14:08] LABS: Cholesterol 208 mg/dL (<200); HDL Cholesterol 39 mg/dL (>40); LDL Cholesterol Calculated 150 mg/dL (<100); Triglycerides 98 mg/dL (<150)
[2024-11-30 00:52] LABS: TS Negative Control Passed; TS Panel A 0; TS Panel B 0; TS Positive Control Passed; TSpotTB Negative (Negative)
== END 2024-11-26 10:54 | disposition home or self-care (01) ==
LOC: HO.HHCL 10:53
PROVIDERS: Visit Provider Internal Medicine Geriatric Medicine
DX: R05.3 Chronic cough (principal); R04.2 Hemoptysis; Z13.220 Encounter for screening for lipoid disorders; M54.50 Low back pain, unspecified; G89.29 Other chronic pain
CPT/HCPCS: 36415; 72100; 80061; 86481

== ENCOUNTER → 2024-11-26 14:05 | Outpatient (BNV) | payer MEDICAID, SELFPAY | PROVIDERS: Visit Provider Radiology Diagnostic Radiology | DX: I65.23 Occlusion and stenosis of bilateral carotid arteries (principal) | CPT/HCPCS: 72100 ==

== ENCOUNTER 2025-01-21 09:50 | Outpatient (AMB) | payer MEDICAID, SELFPAY ==
--- NOTE | 2025-01-21 09:51 | A.OFFVIS_ITS ---
Vital Signs 01/21/25 09:57 Height 5 ft 4.96 in Weight 187 lb 6.287 oz BMI 31.2 BP 169/77 H Blood Pressure Location Lt brachial Position Sitting Pulse 100 Pulse Source Pulse Oximeter Pulse Oximetry (%) 97 Oxygen Delivery Method Room Air Intake Visit Reasons: CHRONIC MIDLINE LOW BACK PAIN Intake Note: Pain today 06/24 Four Slide Machine Setter Required: Yes Four Slide Machine Setter Language: Belarusian Four Slide Machine Setter Name: Daughter- Luann Accompanied by: Daughter Allergies No Known Allergies Allergy (Verified 01/21/25 09:57) HPI Comments Details: Belarusian speaking, patient and daughter declined using tablet for interpretation. Patient's daughter, Geri, assisted for the visit. The patient is a 74-year-old male presenting with chronic lower back pain. This condition has been persistent for approximately 35 years following an accident involving a fall or trip. Initially, the patient experienced severe pain and sought frequent medical attention, including a series of injections which provided temporary relief. However, these interventions stopped about eight years ago, leading to a worsening of symptoms. The pain originates in the lower back and radiates down into his thighs, manifesting as both an aching sensation and shooting electrical pain. Over the years, this has resulted in significant interference with his daily activities, causing increased discomfort while standing, walking, and sitting. He has develo ped a compensatory forward-leaning posture, especially noticeable during walking, indicative of lumbar spinal stenosis. The condition is exacerbated by backward bending movements and improved with forward bending. In recent evaluations, x-ray imaging has shown marked degenerative changes in the spine, although no recent MRI assessments have been conducted. The patient also reports urinary urgency and occasional incontinence episodes, adding to his functional challenges. Efforts to manage the pain with medications like meloxicam and topical lidocaine have provided minimal relief. Additionally, physical therapy has been deemed too painful to pursue further, leading the patient to explore alternative therapies without substantial benefit. - Onset: Approximately 35 years ago following fall/trip incident - Quality: Aching, discomfort, and shooting zapping electrical pain - Location: Lower back extending into thighs - Radiation: Pain radiates to both thighs - Exacerbating Factors: Standing, walking, sitting, bending backward - Alleviating Factors: Forward bending, leaning on carts while walking - Impact on Activities: Interferes with completing walks, makes simple activities challenging - Affect: Pain causes significant interference with daily life; leaning forwards to alleviate discomfort - Analgesia: Previous injections provided relief but ceased eight years ago; meloxicam yielding limited benefit; past use of lidocaine patches ineffective - Adverse Effects: Significant pain limiting the ability to engage in physical therapy - Activities of Daily Living: Difficulty in completing walks, leaning on support to alleviate discomfort - Aberrant Drug Related Behaviors: NONE REPORTED [facility] Medical History (Updated 01/21/25 @ 10:42 by Jazlyn Lemus, [employer] [employer], LETTUCE CUTTER) Suspected chronic obstructive pulmonary disease based on initial evaluation Anxiety Depression Review of Systems Const Details: - Musculoskeletal: Reports chronic lower back pain radiating to the thighs - Neurological: Reports shooting, electrical pain in the legs; denies recent MRI - Urological: Reports urinary urgency and occasional urge incontinence Physical Exam Vital Signs: Last Vital Signs Pulse 100 01/21/25 09:57 BP 169/77 H 01/21/25 09:57 Pulse Ox 97 01/21/25 09:57 Oxygen Delivery Method Room Air 01/21/25 09:57 BMI result Body Mass Index 31.2 General: awake, alert, oriented. Answers questions appropriately. Fully engaged in examination. Skin: warm, dry, intact HEENT: Normocephalic. Hearing intact. Cardiac: External chest normal in appearance. Respiratory: No cough, audible wheezing or stridor. Abdomen: without gross distension. MS: No obvious swelling or deformities. Able to stand on bilateral tiptoes and bilateral heels.? Able to transition from sit to stand unassisted. Ambulates with bilaterally normal heel strike and toe off Bilateral lower extremity strength 5/5 SLR negative bilaterally, negative footdrop, negative clonus Tenderness over midline lumbar vertebrae and lumbar paraspinal muscles Nontender over bilateral PSIS Facet loading positive Significantly decreased lumbar range of motion secondary to pain Neurological: Oriented to person, place, time and situation. Thought process intact. Ambulates with use of a cane Psychiatric: Appropriate mood and affect. Good judgment and insight. Results Reviewed Results Reviewed: 11/26/2024 XR/XR lumbar spine 2-3V FINDINGS: No scoliosis. Normal lordosis. Mild osteopenia. No fracture, compression deformity, or suspicious bone lesion. There is a 14 mm spondylolisthesis at L4-5. There are bilateral full-thickness pars defects. Severe disc degeneration L4-5 with disc vacuum phenomenon and sclerosis of the endplates. Disc spaces are otherwise relatively preserved. Facets demonstrate normal alignment. There is severe hypertrophic facet arthropathy at L4-5. Unremarkable appearing sacrum and SI joints. Mild vascular calcifications in the soft tissues. IMPRESSION: 1. No acute bony abnormalities. 2. Grade 1/2 spondylolisthesis L4-5, with severe associated disc degeneration. Assessment & Plan Assessment & Plan (1) Spondylolisthesis, lumbar region: Code(s): M43.16 - Spondylolisthesis, lumbar region Category: Medical (2) Lumbar spondylosis: Code(s): M47.816 - Spondylosis without myelopathy or radiculopathy, lumbar region Category: Medical (3) Chronic pain syndrome: Code(s): G89.4 - Chronic pain syndrome Category: Medical Plan I plan to address the patient's chronic lower back pain by obtaining further imaging, including an MRI to assess the extent of lumbar spondylosis and potential spinal stenosis. Subsequently, based on the imaging results, we will consider appropriate interventional procedures such as epidural steroid injections, noting the inadequate relief from previous treatments. Conservative measures with meloxicam and Tylenol will continue to be recommended for interim symptomatic management. Should imaging indicate significant spinal narrowing, a surgical consultation may be necessary. Further assessment through specific bending x-ray views will be crucial. I discussed with the patient and his daughter the likely diagnosis of lumbar spinal stenosis and the management approach including imaging studies such as an MRI to further evaluate the extent of the condition. We reviewed treatment options, including potential interventional procedures like epidural steroid injections, and discussed the possibility of surgical consultation if imaging reveals significant narrowing. I explained that these diagnostics will guide treatment decisions and potentially alleviate symptoms. We discussed scheduling the MRI at an open facility to accommodate any claustrophobia concerns and outlined the follow-up methods upon receiving the results. Continuous conservative management with meloxicam and Tylenol was advised, with a focus on obtaining imaging results to direct further management strategies. Patient was informed and verbally consented to the use of an ambient scribe for clinic note documentation during this visit. Orders: Orders XR lumbar spine bending only Today M43.16 - Spondylolisthesis, lumbar region, M47.816 - Spondylosis without myelopathy or radiculopathy, lumbar region Patient Instructions: - Arrange for the MRI at the open MRI facility in [place] for a more comfortable experience. - Continue taking meloxicam and Tylenol as needed for pain relief. - Monitor pain levels and symptoms following any bending or movement activities. - Follow-up after MRI completion to discuss results and next steps. - Use supportive aids such as carts for stability while walking. - Wear comfortable shoes and practice safe movement to prevent falls. - Contact the office if symptoms worsen or if assistance is needed in scheduling the MRI. Coding Level of Care Code New Pt Level 4 (66979) Complex EM visit Add On G2211 Diagnoses Spondylolisthesis, lumbar region M43.16 Lumbar spondylosis M47.816 Chronic pain syndrome G89.4
[2025-01-21 09:57] VITALS: BP 169/77; PULSE 100; O2SAT 97; BMI 31.2
--- OUTSIDE RECORDS SUMMARY | 2025-01-21 10:13 | XMS_ITS | Encounter Summary ---
Author Organization [employer] Address [address] [place] [address] Care Team Providers Care Anchor Tack Puller Name Role Phone Name, Mehran NAJERA Primary Care Provider [phone] Reason for Visit * Reason Onset Date Comments Med Refill 01/17/2025 Patient requesti ng med refill for Meloxicam Encounter Details Date Type Department Care Team (Late st Contact Info) Description 01/17/2025 Refill [facility] [address] [place] [address] Name, MD Mehran [address] [place], [place] [id number] Social History Tobacco Use Types Packs/Day Years Used Date Smoking Tobacco: Former Cigarettes Smokeless Tobacco: Never Alcohol Use Standard Drinks/Week Comments Never 0 (1 standard drink = 0.6 oz pur e alcohol) Depression Answer Date Recorded Patient Health Questionnaire-9 Score 27 11/26/2024 Patient Health Questionnaire-9 Score 27 11/26/2024 Last PHQ-9: Questionnaire Data Not on file 0 11/26/2024 Housing Stability Answer Date Recorded What is your housing situation today? I have erich quintero 11/18/[address] you li ve. Do you have problems with any of the following? None of the above 11/18/2024 Food Insecurity Answer Date Recorded Within the past 12 months, y ou worried that your food would run out before you got money to buy more: Never True 11/18/2024 Within the past 12 months,th e food you bought just didn't last and you didn't have enough money to get more: Never True 02/2025 Transportation Answer Date Recorded In the past 12 months, has l ack of transportation kept you from medical appts, meetings, work or from getting things needed for daily living? No 11/18/2024 Utilities Answer Date Recorded In the past 12 months, has t he electric, gas, oil or water company threatened to shut off services in your home? No 11/18/2024 Depression Answer Date Recorded Patient Health Questionnaire-2 Score 6 11/26/2024 Internet Access Answer Date Recorded Internet Access Q1 Yes 11/18/2024 Internet Access Q2 Not on file 11/18/2024 Sex and Gender Information Value Date Recorded Sex Assigned at Male 10/12/2024 10:54 AM EST Legal Sex Male 1:26 PM EST Gender Identity Male 10/12/2024 10:54 AM EST Sexual Orientation Straight 10/12/2024 10 :54 AM EST documented as of this encounter Miscellaneous Notes * Telephone Encounter - Zakia Carrasco - 01/17/2025 10:46 AM EDT Patient requesting med refill for Meloxicam documented in this encounter Plan of Treatment Upcoming Encounters Date Type Department Care Team (Late st Contact Info) Description 03/23/2025 11:30 AM EDT Office Visit [facility] [address] [place] [address] Name, MD Mehran [address] [place] [address] documented as of this encounter Visit Diagnoses Not on filedocumented in this encounter Additional Health Concerns Assessment Noted Time PHQ-9 Depression Total Score: 27 025 10:30 AM EDT documented as of this encounter Care Teams Anchor Tack Puller Relationship Specialty Start Date End Date Name, MD Mehran [address] [place] [address] PCP - General Internal Medicine 11/26/24 documented as of this encounter
--- OUTSIDE RECORDS SUMMARY | 2025-01-21 10:13 | XMS_ITS | Clinical Summary ---
Author Organization [employer] Address [address] [place] [address] Care Team Providers Care Loan Operations Manager Name Role Phone Name, Mehran NAJERA Primary Care Provider [phone] Allergies No known active allergies Medications * This document contains information received from the source organization and may not represent a complete record from that organization. tiotropium (Spiriva HandiHaler) 18 MCG inhalation capsuleIndicat ions:Chronic cough Place 1 capsule (18 mcg) into inhaler and inhale in the morning. 30 capsule 11/27/19 026 Active atorvastatin (Lipitor) 20 MG tablet Take 1 tablet (20 mg) by mouth Once per day. 30 tablet 11/30/19 25 026 Active sertraline (Zoloft) 100 MG tablet Take 1 tablet (100 mg) by mouth Once per day. 30 tablet 12/25/19 25 026 Active albuterol 108 (90 Base) MCG/ACT inhalerIndicat ions:Chronic cough Inhale 2 puffs every 6 (six) hours if needed for wheezing. 18 g 12/25/19 25 026 Active fluticasone-sa lmeterol (Advair) 230-21 MCG/ACT inhaler Inhale 2 puffs in the morning and at bedtime. Rinse mouth with water after use to reduce aftertaste and incidence of candidiasis. Do not swallow. 12 g 12/25/19 25 026 Active meloxicam (Mobic) 7.5 MG tablet Take 1 tablet (7.5 mg) by mouth Once per day. 20 tablet 01/18/20 25 026 Active sertraline (Zoloft) 25 MG tabletIndicati ons:Depression with anxiety Take 1 tablet (25 mg) by mouth Once per day for 7 days, THEN 2 tablets (50 mg) Once per day. 30 tablet 11/27/19 025 Discontinued(Do se adjustment) fluticasone furoate (Arnuity Ellipta) 100 MCG/ACT inhalerIndicat ions:Chronic cough Inhale 1 puff Once per day. Rinse mouth with water after use to reduce aftertaste and incidence of candidiasis. Do not swallow. 1 each 11/27/19 025 Discontinued(Th erapy completed) albuterol 108 (90 Base) MCG/ACT inhalerIndicat ions:Chronic cough Inhale 2 puffs every 6 (six) hours if needed for wheezing. 18 g 11/27/19 025 Discontinued(Re order (will not trigger notification to Pharmacy)) meloxicam (Mobic) 7.5 MG tablet Take 1 tablet (7.5 mg) by mouth Once per day. 20 tablet 12/25/19 025 Discontinued(Re order (will not trigger notification to Pharmacy)) Active Problems Problem Noted Date Diagnosed Date Chronic cough 11/26/2024 Chronic midline low back pain 11/26/2024 Overview (11/26/2024): Years with this problem, worse Screening for cholesterol level 11/26/2024 Tremors of nervous system 11/26/2024 Suspected chronic obstructiv e pulmonary disease based on initial evaluation 11/26/2024 Former smoker 11/26/2024 Depression with anxiety 11/26/2024 Fibromyalgia 10/12/2024 Assessment & Plan (10/12/2024 1:42 PM EST): Reported hx of fibromyalgia treated oversees. Ran out of medication and been waiting for new patient appt to establish care. Discussed and given reassurance pt is on new patient list at [facility]. Hearing loss 10/12/2024 Vision loss 10/12/2024 Hemoptysis 10/12/2024 Assessment & Plan (10/12/2024 1:40 PM EST): Cough x2 weeks that keeps worsening with recent hemoptysis. On exam pt is tachypneic, hypoxic with O2 SAT 94%, involving accessory muscle use and seemingly in respiratory distress. Blood pressure is soft. Given above mentioned respiratory symptoms and presentation along th age will send pt to [facility] ER for further evaluation and treatment. Respiratory distress determined by examination 0 10/12/2024 Assessment & Plan (10/12/2024 1:41 PM EST): Pt is tachypneic, hypoxic with O2 SAT 94%, involving accessory muscle use and appears to be in acute respiratory distress. Will send to [facility] ER for further evaluation and treatment. Encounters * This document contains information received from the source organization and may not represent a complete record from that organization. Date Type Department Care Team Description 01/17/[address] [id number] Mehran Edward MD 12/24/2024 11:00 AM EDT Office Visit [address] [address] Mehran Edward MD Suspected chronic obstructive pulmonary disease based on initial evaluation (CMS/[facility]) (Primary Dx); Hemoptysis; Chronic cough; Chronic midline low back pain, unspecified whether sciatica present; Depression with anxiety; Encounter for immunization 12/24/2024 Travel 12/23/2024 Telephone [facility] [address] [place] [phone] Luigi Rangel MA chartprep 12/01/[address] [address] Mehran Edward MD Results 12/01/2024 Telephone [facility] [address] [place] [phone] Mehran Edward MD 11/29/2024 Telephone [facility] [address] [place] [phone] Mehran Edward MD 11/26/2024 9:30 AM EDT Office Visit [address] [address] Mehran Edward MD Chronic cough (Primary Dx); Former smoker; Hemoptysis; Suspected chronic obstructive pulmonary disease based on initial evaluation (CMS/HCC); Chronic midline low back pain, unspecified whether sciatica present; Blurred vision; Depression with anxiety; Tremors of nervous system; Screening for cholesterol level; Ear itching 11/26/2024 Travel 11/18/2024 Patient Outreach [facility] [address] [place] [address] Name, MD Mehran Pre-visit Planning (SDOH negative, Tobacco screening negative. ) from Last 3 Months Immunizations Name Administration Dates Next Due Influenza, seasonal, injectable, preservative fr ee 12/24/2024 Pneumococcal Conjugate PCV 20 12/24/2024 Tdap 12/24/2024 Social History Tobacco Use Types Packs/Day Years Used Date Smoking Tobacco: Former Cigarettes Smokeless Tobacco: Never Tobacco Cessation:Counseling Given: Not Answered Alcohol Use [...] Sign Reading Time Taken Comments Blood Pressure 127/75 12/24/2024 11:31 AM EDT Pulse 83 12/24/2024 11:12 AM EDT Temperature 36.8 ??C (98.3 ??F) 12/24/2024 1 1:12 AM EDT Respiratory Rate 12 12/24/2024 11:1 2 AM EDT Oxygen Saturation 97% 12/24/2024 11: 12 AM EDT Inhaled Oxygen Concentration - - Weight 83.8 kg (184 lb 12.8 oz) 025 11:12 AM EDT Height - - Body Mass Index - - Plan of Treatment Upcoming Encounters Date Type Department Care Team (Late st Contact Info) Description 03/23/2025 11:30 AM EDT Office Visit [facility] [address] [place] [address] Name, MD Mehran [address] [place] [address] Health Maintenance Due Date Last Done Comments CT Colonography 1950 Colonoscopy 1950 Colorectal Cancer Screening 1950 FIT DNA/Cologuard 1950 FIT 1950 FOBT 1950 Sigmoidoscopy 1950 Hepatitis C Screening 1968 Zoster Vaccines (1 of 2) 2000 RSV Patients and Patients Aged 60 years or older (1 - Risk 60-74 years 1-dose series) 2010 COVID-19 Vaccine ( - 2023-2 5 season) 2024 Alcohol/Substance Use Screening 11/26/2025 11/26/2024 Depression Screening 11/26/2025 11/26/2024, 11/26/2024 SDOH Screening 11/26/2025 11/26/2024 Tobacco Screening 12/24/2025 12/24/2024 Lipid Panel 11/26/2029 11/26/2024 DTaP/Tdap/Td Vaccines (2 - T d or Tdap) 12/24/2034 12/24/2024 Influenza Vaccine Completed 12/24/2024 Pneumococcal Vaccine: 50+ Years Completed 12/24/2024 HIB Vaccines Aged Out No longer eligi [...] Procedure Name Priority Date/Time Associated Diagnosis Comments XR LUMBAR SPINE 2-3 VIEWS Routine 11/26/2024 2:05 PM EDT Chronic midline low back pain, unspecified whether sciatica present LIPID PANEL, STANDARD Routine 11/26/2024 10:56 AM EDT Screening for cholesterol level T-SPOT(R).TB Routine 11/26/2024 10:56 AM EDT Chronic cough Hemoptysis from Last 3 Months Results * XR Lumbar Spine 2-3 Views (11/26/2024 2:05 PM EDT) Anatomical Region Laterality Modality Spine, L-spine Radiographic Pebbles ging 11/26/2024 2:05 PM EDT Narrative 11/26/2024 2:39 PM EDT ? [facility] ?[address] ?[place] [address] ?XRay Report ? Signed ? Patient: Younes,Abbas ?MR#: [id number] ? : 1950 ?Acct:[id number] ? Age/Sex: 74 / M ?ADM Date: 03/14/25 ? Loc: HO.HHCL ? Attending Dr: Mehran Edward MD ? Ordering Physician: Mehran Edward MD ?? Date of Service: 11/26/24 ?? Procedure(s): XR lumbar spine 2-3V ?? Accession Number(s): [id number] ? cc: Wagner,Mehran NAJERA ? EXAMINATION: ?? XR LUMBOSACRAL SPINE ? CLINICAL INFORMATION: ?? PAIN ? COMPARISON: ?? None available. ? TECHNIQUE: ?? Three views of the lumbosacral spine. ? FINDINGS: ?? No scoliosis. Normal lordosis. Mild osteopenia. ?? No fracture, compression deformity, or suspicious bone lesion. ?? There is a 14 mm spondylolisthesis at L4-5. There are bilateral ?? full-thickness pars defects. ?? Severe disc degeneration L4-5 with disc vacuum phenomenon and sclerosis ?? of the endplates. Disc spaces are otherwise relatively preserved. ?? Facets demonstrate normal alignment. There is severe hypertrophic facet ?? arthropathy at L4-5. ? Unremarkable appearing sacrum and SI joints. Mild vascular ?? calcifications in the soft tissues. ? XR/XR lumbar spine 2-3V ?? IMPRESSION: ?? 1. No acute bony abnormalities. ?? 2. Grade 1/2 spondylolisthesis L4-5, with severe associated disc ?? degeneration. ? Electronically signed by: ??Hernan Galo MD ??11/26/2024 02:35 PM EDT RP ? Dictated By: ?Hernan Galo MD ? Signed By: ?<Electronically signed by Hernan Galo MD in OV> ?11/26/24 1435 ? DD/ 1405 ? TD/TT: 11/26/24 1420 ? Animal Cruelty Investigation Supervisor: ? Procedure Note Ale, Karthik - 11/30/[address] [address] XRay Report Signed Patient: Annabella West#: [id number] : 1950cct:[id number] Age/Sex: 74 / MADM Date: 11/26/24 Loc: HO.HHCL Attending Dr: Mehran Edward MD Ordering Physician: Mehran Edward MD Date of Service: 11/26/24 Procedure(s): XR lumbar spine 2-3V Accession Number(s): [id number] cc: Mehran Edward MD EXAMINATION: XR LUMBOSACRAL SPINE CLINICAL INFORMATION: PAIN COMPARISON: None available. TECHNIQUE: Three views of the lumbosacral spine. FINDINGS: No scoliosis. Normal lordosis. Mild osteopenia. No fracture, compression deformity, or suspicious bone lesion. There is a 14 mm spondylolisthesis at L4-5. There are bilateral full-thickness pars defects. Severe disc degeneration L4-5 with disc vacuum phenomenon and sclerosis of the endplates. Disc spaces are otherwise relatively preserved. Facets demonstrate normal alignment. There is severe hypertrophic facet arthropathy at L4-5. Unremarkable appearing sacrum and SI joints. Mild vascular calcifications in the soft tissues. XR/XR lumbar spine 2-3V IMPRESSION: 1. No acute bony abnormalities. 2. Grade 1/2 spondylolisthesis L4-5, with severe associated disc degeneration. Electronically signed by: Hernan Galo MD 11/26/2024 02:35 PM EDT Dictated By: Hernan Galo MD Signed By: <Electronically signed by Hernan Galo MD in OV> 11/26/24 1435 DD/ 1405 TD/TT: 11/26/24 1420 Animal Cruelty Investigation Supervisor: Mehran Edward MD IM XR PROCEDURES Edited Result - Final * T-SPOT??.TB (11/26/2024 10:56 AM EDT) [facility] T Spot TB Negative Negative [facility] Comment:A negative test resu lt does not exclude the possibilityof exposure to or infection with Mycobacteriumtuberculosis (M. tuberculosis). Patients with recentexposure to TB infected individuals exhibiting anegative T-SPOT.TB result should be considered forretesting within 6 weeks or if other relevant clinicalsymptoms indicate. Results from T-SPOT.TB testing mustbe used in conjunction with each individual'sepidemiological history, current medical status,and results of other diagnostic evaluations.The T-SPOT.TB test is qualitative and results arereported as positive, borderline, or negative, giventhat the test controls perform as expected. In linewith the Centers for Disease Control and Prevention's2010 recommendation to report quantitative measurementsalongside the qualitative result, the laboratoryprovides spot counts for informational purposes only.The T-SPOT.TB test should not be interpreted as aquantitative test. TS PANEL A 0 [facility] TS PANEL B 0 [facility] Negative Control Passed [facility] Positive Control Passed [facility] Comment:For additional infor paula, please refer tohttp://education.Lightwaves/faq/NLX441(This link is being provided for informational/educational purposes only.)THIS TEST WAS PERFORMED AT:[employer] [id number] [place] [address]FHVCKXYBEAU JI MD,PHD 11/26/2024 10:5 6 AM EDT 11/26/2024 1:32 PM EDT us Mehran Name LAB BLOOD ORDERABLES Final Resul t [facility] [address] [place] [phone] * (ABNORMAL) Lipid Panel, Standard (11/26/2024 10:56 AM EDT) Triglycerides 98 <150 mg/dL [facility] Comment:Desirable Triglyceri de: less than 150 mg/dLBorderline High Triglyceride 150-199 mg/dLHigh Triglyceride: 200-499 mg/dLVery High Triglyceride: greater than or equal to 5OO mg/dL Cholesterol 208(H) <200 mg/dL [facility] Comment:Desirable Cholestero l: less than 200 mg/dLBorderline High Cholesterol: 200-239 mg/dLHigh Cholesterol: greater than 239 mg/dL LDL Cholesterol Calculated 150(H) <100 mg/dL [facility] Comment:Desirable LDL: less than 100 mg/dLNear Optimal/Above Optimal LDL: 110- 129 mg/dLBorderline High LDL: 130-159 mg/dLHigh LDL: 160-189 mg/dLVery High LDL: greater than or equal to 190 mg/dL HDL Cholesterol 39(L) >40 mg/dL [facility] Comment:Desirable HDL: great er than 40 mg/dL Note: This HDL assay may give artificially low results in patients with liver disease. Blood Venous blood specimen / Unknown 11/26/2024 10:56 AM EDT 11/26/2024 1:32 PM EDT us Mehran Edward MD LAB BLOOD ORDERABLES Final Resul t [facility] [address] [place] [phone] from Last 3 Months Insurance [facility] STANDARD Care Teams Loan Operations Manager Relationship Specialty Start Date End Date Name, MD Mehran [address] [place] [phone] PCP - General Internal Medicine 11/26/24
== END 2025-01-21 10:48 | disposition home or self-care (01) ==
LOC: HO.PMC 09:51
PROVIDERS: PCP Internal Medicine Geriatric Medicine; Referring Provider Internal Medicine Geriatric Medicine; Visit Provider Registered Nurse Emergency
DX: M43.16 Spondylolisthesis, lumbar region (principal); M47.816 Spondylosis without myelopathy or radiculopathy, lumbar region; G89.4 Chronic pain syndrome
CPT/HCPCS: 99204

== ENCOUNTER → 2025-01-21 09:50 | Outpatient (BNVA) | payer MEDICAID, SELFPAY | PROVIDERS: PCP Internal Medicine Geriatric Medicine; Referring Provider Internal Medicine Geriatric Medicine; Visit Provider Registered Nurse Emergency | DX: M47.816 Spondylosis without myelopathy or radiculopathy, lumbar region (principal); M43.16 Spondylolisthesis, lumbar region; G89.4 Chronic pain syndrome | CPT/HCPCS: 99212 ==

== ENCOUNTER 2025-01-21 12:56 | Inpatient (IN) | payer MEDICAID, SELFPAY ==
[2025-01-21] VITALS (8 sets, daily range): BP systolic 109–154; BP diastolic 58–78; PULSE 73–106; RESP 18–26; TEMP 36–37.7; O2SAT 93–98; BMI 25.8
--- NOTE | ~2025-01-21 | XR_ITS ---
EXAMINATION: XR CHEST 1 VIEW HISTORY: dyspnea COMPARISON: Comparison is made with the prior examination dated 10/04/2024. FINDINGS: A single AP portable view of the chest performed at 1:28 PM is submitted. The lungs remain hyperinflated with flattening of the hemidiaphragms, consistent with COPD. There are patchy opacities at the right lung base which may represent early pneumonia. The left lung is clear. There is no pleural effusion, pneumothorax, or pulmonary vascular congestion. The heart is normal in size. The bones are intact. XR/XR chest 1V IMPRESSION: COPD. Findings suggestive of early right basilar pneumonia. Follow-up is recommended. Electronically signed by: Kolby Chowdhury MD 01/21/2025 01:41 PM EDT
--- NOTE | 2025-01-21 13:20 | ECG_ITS ---
Test Reason : DYSPNEA Blood Pressure : */* mmHG Vent. Rate : 95 BPM Atrial Rate : 95 BPM P-R Int : 156 ms QRS Dur : 78 ms QT Int : 322 ms P-R-T Axes : 67 57 50 degrees QTcB Int : 404 ms Normal sinus rhythm Normal ECG When compared with ECG of 12-Oct-2024 14:56, No significant change was found Referred By: Rolando William Electronically Signed By: NISHA ANDREW
--- NOTE | 2025-01-21 13:41 | ED_ITS ---
HPI - General Adult General Chief complaint: Dyspnea Stated complaint: DIFF BREATHING Time Seen by Provider: 01/21/25 13:17 Source: patient and family Mode of arrival: ambulatory Limitations: language barrier History of Present Illness HPI narrative: They 74-year-old man with a past medical history of anxiety/ depression, chronic lower back pain, former smoker who is brought in by EMS for evaluation of dyspnea. Daughters present at time of history and exam. 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 Daughter states patient has been sick for the last few days with fever, sputum production and chills. Daughter states associated dyspnea on exertion. Daughter states no chest pain, diarrhea, vomiting or urinary symptoms. Daughter states no trauma. Daughter states associated myalgias. Related Data Home Medications ?Medication ?Instructions ?Recorded ?Confirmed atorvastatin 20 mg tablet 20 mg PO DAILY 01/21/25 fluticasone propionate 230 2 puff inhalation 01/21/25 mcg-salmeterol 21 mcg/actuation HFA inhaler (Advair HFA) meloxicam 7.5 mg tablet 7.5 mg PO DAILY 01/21/25 sertraline 100 mg tablet 100 mg PO DAILY 01/21/25 Previous Rx's ?Medication ?Instructions ?Recorded albuterol sulfate 90 mcg/actuation 2 puff inhalation Q4-6H PRN 10/12/24 aerosol inhaler shortness of breath or wheezing #8.5 grams benzonatate 100 mg capsule 100 mg PO TID PRN cough #12 caps 10/12/24 oseltamivir 75 mg capsule (Tamiflu) 75 mg PO BID 5 days #10 caps 10/12/24 prednisone 50 mg tablet 50 mg PO DAILY #5 tabs 10/12/24 Allergies Allergy/AdvReac Type Severity Reaction Status Date / Time No Known Allergies Allergy Verified 01/21/25 13:17 Review of Systems 2 Review of Systems: ROS as per [facility] Past Medical History Medical History (Updated 01/21/25 @ 14:36 by Rolando William MD) Suspected chronic obstructive pulmonary disease based on initial evaluation Anxiety Depression Social History Social History (System 11/30/24 @ 15:47 by Carrie Asencio) Advance Directives: No Advance Directives Information Provided: Yes Do you have a plan to hurt others: No Plan Physical Exam ED Vital Signs: Vital Signs - 24 hr 01/21/25 13:16 01/21/25 14:14 Temperature 99.8 F Pulse Rate 104 H 103 H Respiratory Rate 26 H 23 H Blood Pressure 148/72 H Pulse Oximetry 93 Oxygen Delivery Method Room Air BMI result Body Mass Index 25.8 Gen: NAD, AOx3 HEENT: NCAT, EOMI, normal conjunctiva CV: Tachycardic rate, regular rhythm Pulm: Diffuse expiratory wheezes GI: Soft, NTND, no rebound, guarding or rigidity Neuro: Grossly non focal Medications Administered Generic Name Dose Route Start Last Admin Trade Name Freq PRN Reason Stop Dose Admin Doxycycline Hyclate 100 mg/ 250 mls @ 166.67 mls/hr 01/21/25 13:49 01/21/25 14:03 Sodium Chloride IV 01/21/25 15:18 166.67 mls/hr ONCE ONE Administration Lactated Ringer's 2,109.21 mls @ 2,109.21 mls/hr 01/21/25 13:50 01/21/25 13:57 Lr 30 ml/kg infuse over 1 hr (2109.21 ml) 01/21/25 14:49 2,109.21 mls/hr IV Administration .Q1H ONE Discontinued Medications Generic Name Dose Route Start Last Admin Trade Name Freq PRN Reason Stop Dose Admin Ceftriaxone Sodium 1 gm 01/21/25 13:47 01/21/25 14:03 Ceftriaxone Sodium 1 Gm Vial IVPUSH 01/21/25 13:48 1 gm ONCE ONE Administration Albuterol Sulfate 5 mg/ 0 mg 01/21/25 14:06 01/21/25 14:10 Albuterol/Ipratropium 3 ml INHALE 01/21/25 14:07 1 each ONCE ONE Administration Sodium Chloride 1,000 mls @ 999 mls/hr 01/21/25 13:30 01/21/25 13:52 Ns IV 01/21/25 14:30 0 mls/hr .Q1H1M [facility] Infusion Medical Decision Making Medical Decision Making MDM Narrative: Differential diagnosis includes, but is not limited to viral URI, bronchospasm, pneumonia. There is no documented history of COPD, but suspect patient may have underlying obstructive lung disease given above exam and history of smoking. Per triage note, patient was provided dexamethasone and nebulized bronchodilators prior to arrival. Patient is afebrile (99.8? F), tachycardic and otherwise hemodynamically stable. SpO2 89%. Sepsis treatment initiated. Chest x-ray as below with right lower lobe pneumonia. Patient is provided ceftriaxone and doxycycline for treatment of community-acquired pneumonia. 30 cc/kilos IV fluid bolus administered. Patient provided nebulized bronchodilators given evident wheezes on exam consistent with bronchospasm. I considered corticosteroids, but patient has already received this prior to arrival. Patient is treated supportively with ibuprofen and Tylenol for myalgias. I reviewed the patient's labs, EKG and chest x-ray as below. Blood cultures pending. I discussed patient's case with admitting hospitalist who accepts patient for further work up and management. Critical Care Time: A total of 40 minutes spent in direct patient care with coordinating critical resuscitation, procedures, reviewing records, discussing with consultants, reviewing labs, and/or managing patient. Admission/Observation Consideration of admission/observation: Escalation of care including admission/observation considered Consult Healthcare Provider Management of the patient was discussed with: Hospitalist Lab Data MDM Lab Attestation statement: I reviewed the patient's lab results. labs notable for leukocytosis, stable chronic anemia, venous blood gas reassuring with no acute hypercarbia, BMP reassuring, troponin negative, BNP unremarkable, viral panel negative 01/21/25 13:46 01/21/25 13:47 Labs: Lab Results 01/21/25 01/21/25 01/21/25 Range/Units 13:46 13:46 13:46 WBC 14.3 H (4.8-10.8) X10*3/uL RBC 4.53 L (4.60-5.80) X10*6/uL Hgb 13.3 L (14.0-18.0) g/dl Hct 39.2 L (42.0-52.0) % MCV 86.5 (80.0-98.0) fL MCH 29.4 (27.0-33.0) pg MCHC 33.9 (31.0-36.0) g/dl RDW 12.9 (11.0-16.0) % Plt Count 163 D (160-400) X10*3/uL MPV 9.6 (9.4-12.4) fL Immature Gran % (Auto) 0.6 H (0.0-0.4) % Neut % (Auto) 81.5 H (45-73) % Lymph % (Auto) 11.1 L (20-40) % Putnam % (Auto) 6.4 (2-11) % Eos % (Auto) 0.1 (0-4) % Baso % (Auto) 0.3 (0-2) % Lymph # (Auto) 1.6 (1.2-4.9) X10*3/uL Putnam # (Auto) 0.9 (0.1-1.2) X10*3/uL Eos # (Auto) 0.0 (0.0-0.4) X10*3/uL Baso # (Auto) 0.0 (0.0-0.2) X10*3/uL Abs Immat Gran (auto) 0.08 H (0.00-0.03) X10*3/uL Absolute Neuts (auto) 11.7 H (2.0-8.3) x10*3/uL Absolute Nucleated RBC 0.000 (0.0-0.012) X10*3/uL Nucleated RBC % (auto) 0.0 (0.0-0.2) /100WBC VBG pH (7.32-7.43) VBG pCO2 mmHg VBG pO2 mmHg VBG HCO3 (22-26) mmol/L VBG O2 Saturation % VBG Base Excess mmol/L Sodium (135-145) mmol/L Potassium (3.3-5.1) mmol/L Chloride (96-108) mmol/L Carbon Dioxide (22-29) mmol/L Anion Gap (12-20) BUN (9-16) mg/dL Creatinine (0.5-1.4) mg/dL Estim Creat Clear Calc Estimated GFR Random Glucose (60-115) mg/dL Lactic Acid 0.9 Cancelled Cancelled (0.5-2.0) mmol/L Calcium (8.4-10.2) mg/dL Total Bilirubin (0.0-1.0) mg/dL Direct Bilirubin (0.0-0.5) mg/dL AST (5-37) U/L ALT (0-40) U/L Alkaline Phosphatase (39-117) U/L Troponin I High Sens (<3.5-35.0) ng/L B-Natriuretic Peptide (<100) pg/mL Total Protein (6.5-8.0) g/dL Albumin (3.5-5.0) g/dL 01/21/25 01/21/25 01/21/25 Range/Units 13:47 13:50 13:57 WBC (4.8-10.8) X10*3/uL RBC (4.60-5.80) X10*6/uL Hgb (14.0-18.0) g/dl Hct (42.0-52.0) % MCV (80.0-98.0) fL MCH (27.0-33.0) pg MCHC (31.0-36.0) g/dl RDW (11.0-16.0) % Plt Count (160-400) X10*3/uL MPV (9.4-12.4) fL Immature Gran % (Auto) (0.0-0.4) % Neut % (Auto) (45-73) % Lymph % (Auto) (20-40) % Putnam % (Auto) (2-11) % Eos % (Auto) (0-4) % Baso % (Auto) (0-2) % Lymph # (Auto) (1.2-4.9) X10*3/uL Putnam # (Auto) (0.1-1.2) X10*3/uL Eos # (Auto) (0.0-0.4) X10*3/uL Baso # (Auto) (0.0-0.2) X10*3/uL Abs Immat Gran (auto) (0.00-0.03) X10*3/uL Absolute Neuts (auto) (2.0-8.3) x10*3/uL Absolute Nucleated RBC (0.0-0.012) X10*3/uL Nucleated RBC % (auto) (0.0-0.2) /100WBC VBG pH 7.47 H (7.32-7.43) VBG pCO2 33 mmHg VBG pO2 63 mmHg VBG HCO3 24 (22-26) mmol/L VBG O2 Saturation 93.0 % VBG Base Excess 2.0 mmol/L Sodium 130 L (135-145) mmol/L Potassium 3.7 (3.3-5.1) mmol/L Chloride 98 (96-108) mmol/L Carbon Dioxide 24 (22-29) mmol/L Anion Gap 12 (12-20) BUN 13 (9-16) mg/dL Creatinine 0.69 (0.5-1.4) mg/dL Estim Creat Clear Calc 81.7 Estimated GFR > 60 Random Glucose 152 H (60-115) mg/dL Lactic Acid (0.5-2.0) mmol/L Calcium 9.3 (8.4-10.2) mg/dL Total Bilirubin 0.9 (0.0-1.0) mg/dL Direct Bilirubin 0.3 (0.0-0.5) mg/dL AST 20 (5-37) U/L ALT 19 (0-40) U/L Alkaline Phosphatase 66 (39-117) U/L Troponin I High Sens < 2.7 (<3.5-35.0) ng/L B-Natriuretic Peptide 11 (<100) pg/mL Total Protein 7.6 (6.5-8.0) g/dL Albumin 4.1 (3.5-5.0) g/dL Independent Interpretation I performed an independent interpretation of an: EKG and Plain X-Ray Interpretation: per my interpretation, chest x-ray with right lower lobe opacities concerning for pneumonia. No pneumothorax or pleural effusion.EKG shows sinus rhythm at 95 beats per minute, TX 156, QRS 78, QTC 404, no STEMI Radiology Impression Discussion of test interpretation with radiology: I have reviewed the radiologist's reading. Radiologist Impression: XR/XR chest 1V IMPRESSION: COPD. Findings suggestive of early right basilar pneumonia. Follow-up is recommended. Electronically signed by: Kolby Chowdhury MD 01/21/2025 01:41 PM EDT Dictated By: Kolby Chowdhury MD Signed By: <Electronically signed by Kolby Chowdhury MD in OV> 01/21/25 1341 Discharge Plan Discharge Clinical Impression: Sepsis, Pneumonia, Leukocytosis, Acute hypoxic respiratory failure, Acute bronchospasm Patient Disposition: Admitted As Inpatient Print Language: [place]ore[place]
[2025-01-21] MEDS: 0.9 % Sodium Chloride 1,000 ML 999 ML IV (13:47)
[2025-01-21 13:56] LABS: MANUAL DIFF FLAG NO
[2025-01-21 14:00] LABS: Venous Blood Gas Refer to POC result
[2025-01-21 14:00] LABS: VBG HCO3 24 mmol/L (22-26); VBG pCO2 33 mmHg; VBG pH 7.47 (7.32-7.43); VBG pO2 63 mmHg
[2025-01-21 14:01] LABS: Basophils Percent Auto 0.3 % (0-2); Eosinophils Percent Auto 0.1 % (0-4); Hematocrit 39.2 % (42.0-52.0); Hemoglobin 13.3 g/dl (14.0-18.0); Imm Gran Abs Auto 0.08 X10*3/uL (0.00-0.03); Imm Gran Pct Auto 0.6 % (0.0-0.4); Lymphocytes Absolute Auto 1.6 X10*3/uL (1.2-4.9); Lymphocytes Percent Auto 11.1 % (20-40); Mean Corpuscular HGB Conc 33.9 g/dl (31.0-36.0); Mean Corpuscular Hemoglobin 29.4 pg (27.0-33.0); Mean Corpuscular Volume 86.5 fL (80.0-98.0); Mean Platelet Volume 9.6 fL (9.4-12.4); Monocytes Absolute Auto 0.9 X10*3/uL (0.1-1.2); Monocytes Percent Auto 6.4 % (2-11); Neutrophils Absolute Auto 11.7 x10*3/uL (2.0-8.3); Neutrophils Percent Auto 81.5 % (45-73); Platelet Count 163 X10*3/uL (160-400); Red Blood Count 4.53 X10*6/uL (4.60-5.80); Red Cell Distribution Width 12.9 % (11.0-16.0); White Blood Count 14.3 X10*3/uL (4.8-10.8)
[2025-01-21] MEDS: Doxycycline Hyclate 100 MG in 0.9 % Sodium Chloride 250 ML 166.67 MG IV (14:03)
[2025-01-21] MEDS: cefTRIAXone sodium 1 GM VIAL IVPUSH (14:03)
[2025-01-21] MEDS: Albuterol Sulfate 5 MG, Albuterol/Iprat 2.5/0.5MG 3 ML 3 ML INHALE (14:10)
[2025-01-21 14:12] LABS: Alanine Aminotransferase 19 U/L (0-40); Albumin Level 4.1 g/dL (3.5-5.0); Alkaline Phosphatase 66 U/L (39-117); Anion Gap 12 (12-20); Aspartate Amino Transferase 20 U/L (5-37); Bilirubin Direct 0.3 mg/dL (0.0-0.5); Bilirubin Total 0.9 mg/dL (0.0-1.0); Blood Urea Nitrogen 13 mg/dL (9-16); Calcium 9.3 mg/dL (8.4-10.2); Carbon Dioxide 24 mmol/L (22-29); Chloride 98 mmol/L (96-108); Creatinine Clr Calc Pharmacy 81.7; Estimated Glomerular Filt Rate > 60; Glucose Random 152 mg/dL (60-115); Potassium 3.7 mmol/L (3.3-5.1); Sodium 130 mmol/L (135-145); Total Protein 7.6 g/dL (6.5-8.0)
[2025-01-21 14:17] LABS: B Type Natriuretic Peptide 11 pg/mL (<100)
[2025-01-21 14:21] LABS: Troponin-I High Sensitivity < 2.7 ng/L (<3.5-35.0)
--- OUTSIDE RECORDS SUMMARY | 2025-01-21 14:22 | XMS_ITS | Clinical Summary ---
Author Organization [facility] Address [address] [place] [phone] Phone Care Team Providers Care Cargo Service Supervisor Name Role Phone Physician, No Pcp Primary Care Provider Unavaila ble Allergies No known active allergies Medications albuterol HFA (PROAIR HFA ; PROVENTIL HFA ; VENTOLIN HFA) 90 mcg/actuation inhaler Inhale 2 puffs by mouth every 4 (four) hours if needed for wheezing or shortness of breath. 1 each Active Medical History Medical History Date Comments Asthma COPD (chronic obstructive pulmonary disease) (CM S/HCC V24, CMS/HCC V28) Social History Tobacco Use Types Packs/Day Years [...] Vaccines (1 of 2) 2000 RSV Immunization Adult Patie nts (1 - Risk 60-74 years 1-dose series) 2010 COVID-19 Vaccine (1 - 2023-2 5 season) 2024 Abdominal Aortic Aneurysm (A AA) Screen 09/25/2024 Cholesterol Screening (Lipid Panel) 09/25/2024 Colorectal Cancer Screening: Colonoscopy 09/25/2024 Depression Screening 09/25/2024 Falls Risk Assessment 09/25/2024 Hepatitis C Screening 09/25/2024 Social Influencers of Health Screening 09/25/2024 Influenza Vaccine (Season Ended) 2025 HIB Vaccines Aged Out No longer [...] age to complete this topic Meningococcal B Vaccine Aged Out No l onger eligible based on patient's age to complete this topic RSV Immunization Patients Un dave 20 months Aged Out No longer eligible b ased on patient's age to complete this topic Varicella Vaccines Aged Out No longer eligible based on patient's age to complete this topic Insurance [place] Care Teams Cargo Service Supervisor Relationship Specialty Start Date End Date Physician, No Pcp PCP - General 09/26/24
--- OUTSIDE RECORDS SUMMARY | 2025-01-21 14:23 | XMS_ITS | Clinical Summary ---
Author Organization [employer] Address [address] [place] [address] Care Team Providers Care Waistband Setter Name Role Phone Name, Mehran NAJERA Primary Care Provider [phone] Allergies No known active allergies Medications * [...] pt is on new patient list at [facility]. Hearing loss 10/12/2024 Vision loss 10/12/2024 Hemoptysis 10/12/2024 Assessment & Plan (10/12/2024 1:40 PM EST): Cough x2 weeks that keeps worsening with recent hemoptysis. On exam pt is tachypneic, hypoxic with O2 SAT 94%, involving accessory muscle use and seemingly in respiratory distress. Blood pressure is soft. Given above mentioned respiratory symptoms and presentation along th age will send pt to [facility] ER for further evaluation and treatment. Respiratory distress determined by examination 0 10/12/2024 Assessment & Plan (10/12/2024 1:41 PM EST): Pt is tachypneic, hypoxic with O2 SAT 94%, involving accessory muscle use and appears to be in acute respiratory distress. Will send to [facility] ER for further evaluation and treatment. Encounters * This document contains information received from the source organization and may not represent a complete record from that organization. Date Type Department Care Team Description 01/21/2025 Orders Only [facility] External Provider, [facility] 01/17/2025 Refill [facility] [address] [place] [phone] Mehran Edward MD 12/24/2024 11:00 AM EDT Office Visit [facility] [address] [place] [phone] Mehran Edward MD Suspected chronic obstructive pulmonary disease based on initial evaluation (CMS/HCC) (Primary Dx); Hemoptysis; Chronic cough; Chronic midline low back pain, unspecified whether sciatica present; Depression with anxiety; Encounter for immunization 12/24/2024 Travel 12/23/2024 Telephone [facility] [address] [place] [phone] Luigi Rangel MA chartprep 12/01/2024 Telephone [facility] [address] [place] [phone] Mehran Edward MD Results 12/01/2024 Telephone [facility] [address] [place] [phone] Mehran Edward MD 11/29/2024 Telephone [facility] [address] [place] [phone] Mehran Edward MD 11/26/2024 9:30 AM EDT Office Visit [address] [phone] Mehran Edward MD Chronic cough (Primary Dx); Former smoker; Hemoptysis; Suspected chronic obstructive pulmonary disease based on initial evaluation (CMS/HCC); Chronic midline low back pain, unspecified whether sciatica present; Blurred vision; Depression with anxiety; Tremors of nervous system; Screening for cholesterol level; Ear itching 11/26/2024 Travel 11/18/2024 Patient Outreach [facility] [address] [place] [address] Name, MD Mehran Pre-visit Planning (SDOH negative, [...] Description 03/23/2025 11:30 AM EDT Office Visit [facility] [address] [place] [address] Name, MD Mehran [address] [place] [address] Health Maintenance Due Date Last Done Comments [...] Procedure Name Priority Date/Time Associated Diagnosis Comments VENOUS BLOOD GAS Routine 01/21/2025 1:57 PM EDT HIGH SENSITIVITY TROPONIN I Routine 01/21/2025 1:50 PM EDT B TYPE NATRIURETIC PEPTIDE (BNP) Routine 01/21/2025 1:50 PM EDT HEPATIC FUNCTION PANEL Routine 1:47 PM EDT COMPREHENSIVE METABOLIC PANEL Routine 01/21/2025 1:47 PM EDT CBC WITH AUTO DIFFERENTIAL Routine 01/21/2025 1:46 PM EDT XR CHEST 1 VIEW Routine 01/21/2025 1:20 PM EDT XR LUMBAR SPINE 2-3 VIEWS Routine 11/26/2024 2:05 PM EDT Chronic midline low back pain, unspecified whether sciatica present LIPID PANEL, STANDARD Routine 11/26/2024 10:56 AM EDT Screening for cholesterol level T-SPOT(R).TB Routine 11/26/2024 10:56 AM EDT Chronic cough Hemoptysis from Last 3 Months Results * (ABNORMAL) VENOUS BLOOD GAS (01/21/2025 1:57 PM EDT) VBG pH 7.47(H) 7.32 - 7.43 [facility] Comment:METER #: [id number] additional_comment: Cb patelha VBG PCO2 33 mmHg [facility] Comment:METER #: [id number] additional_comment: Cb patelha VBG PO2 63 mmHg [facility] Comment:METER #: [id number] additional_comment: Cb patelha VBG Base Excess 2.0 mmol/L [facility] Comment:METER #: [id number] additional_comment: Cb patamilcar VBG HCO3 24 22 - 26 mmol/L [facility] Comment:METER #: [id number] additional_comment: Cb tree O2 Sat, Mitch 93.0 % [facility] Comment:METER #: [id number] additional_comment: Cb tree 01/21/2025 1:57 PM EDT 01/21/2025 2:00 PM EDT us Generic External Data Provider LAB BLOOD ORDERAB LES Final Result [facility] [address] [place] [phone] * High Sensitivity Troponin I (01/21/2025 1:50 PM EDT) TROPONIN I HIGH SENSITIVITY <2.7 <3.5 - 35.0 ng/L [facility] Comment:The Patrick high sens itivity Troponin-I results should beused in conjunction with other diagnostic information suchas ECG, clinical observations and information, and patientsymptoms to aid in the diagnosis of NM. 01/21/2025 1:50 PM EDT 01/21/2025 1:55 PM EDT us Generic External Data Provider LAB BLOOD ORDERAB LES Final Result Performing Organization Address [facility] Co de Phone Number [facility] [address] [place] [phone] * B Type Natriuretic Peptide (BNP) (01/21/2025 1:50 PM EDT) Pathologist [facility] B Type Natriuretic Peptide 11 <100 pg/mL [facility] 01/21/2025 1:50 PM EDT 01/21/2025 1:55 PM EDT us Generic External Data Provider LAB BLOOD ORDERAB LES Final Result Performing Organization Address [facility] Co de Phone Number [facility] [address] [place] [phone] * Hepatic Function Panel (01/21/2025 1:47 PM EDT) Pathologist [facility] Bilirubin, Direct 0.3 0.0 - 0.5 mg/dL [facility] 01/21/2025 1:47 PM EDT 01/21/2025 1:55 PM EDT Generic External Data Provider LAB BLOOD ORDERAB LES Final Result Performing Organization Address [facility] Co de Phone Number [facility] [address] [place] [phone] * (ABNORMAL) Comprehensive Metabolic Panel (01/21/2025 1:47 PM EDT) Pathologist [facility] Sodium 130(L) 135 - 145 mmol/L [facility] Potassium 3.7 3.3 - 5.1 mmol/L [facility] Chloride 98 96 - 108 mmol/L [facility] Carbon Dioxide 24 22 - 29 mmol/L [facility] Anion Gap 12 12 - 20 [facility] Urea Nitrogen (BUN) 13 9 - 16 mg/dL [facility] Creatinine, Serum 0.69 0.5 - 1.4 mg/dL [facility] Creatinine Clr Calc Pharmacy 81.7 [facility] Comment:eGFR (calculated fro m the MDRD study equation) and eCrCl(calculated from the Cockcroft-Gault equation) are based ondifferent parameters and may not yield comparable results.If eCrCl result is absurd, please check patient'sheight/weight. Estimated Glomerular Filt Rate >60 [facility] Comment:Chronic Kidney Disea se: Estimated GFR < 60 mL/min/1.84x7Scyuzd Kidney Disease: Estimated GFR < 15 mL/min/1.73m2 Glucose 152(H) 60 - 115 mg/dL [facility] Calcium 9.3 8.4 - 10.2 mg/dL [facility] Bilirubin, Total 0.9 0.0 - 1.0 mg/dL [facility] Aspartate Amino Transferase 20 5 - 37 U/L [facility] Alanine Aminotransferase 19 0 - 40 U/L [facility] Total Protein 7.6 6.5 - 8.0 g/dL [facility] Albumin Level 4.1 3.5 - 5.0 g/dL [facility] Alkaline Phosphatase 66 39 - 117 U/L [facility] 01/21/2025 1:47 PM EDT 01/21/2025 1:55 PM EDT us Generic External Data Provider LAB BLOOD ORDERAB LES Final Result [facility] [address] [place] [phone] * (ABNORMAL) CBC auto differential (01/21/2025 1:46 PM EDT) White Blood Count 14.3(H) 4.8 - 10.8 X10*3/uL [facility] Red Blood Count 4.53(L) 4.60 - 5.80 X10*6/uL [facility] Hemoglobin 13.3(L) 14.0 - 18.0 g/dl [facility] Hematocrit 39.2(L) 42.0 - 52.0 % [facility] Mean Corpuscular Volume 86.5 80.0 - 98.0 fL [facility] Mean Corpuscular Hemoglobin 29.4 27.0 - 33.0 pg [facility] Mean Corpuscular HGB Conc 33.9 31.0 - 36.0 g/dl [facility] Red Cell Distribution Width 12.9 11.0 - 16.0 % [facility] Platelet Count 163 160 - 400 X10*3/uL [facility] Mean Platelet Volume 9.6 9.4 - 12.4 fL [facility] Neutrophils Percent Auto 81.5(H) 45 - 73 % [facility] Imm Gran Pct Auto 0.6(H) 0.0 - 0.4 % [facility] Lymphocytes Percent Auto 11.1(L) 20 - 40 % [facility] Monocytes Percent Auto 6.4 2 - 11 % [facility] Eosinophils Percent Auto 0.1 0 - 4 % [facility] Basophils Percent Auto 0.3 0 - 2 % [facility] NRBC Pct Auto 0.0 0.0 - 0.2 /100WBC [facility] Neutrophils Absolute Auto 11.7(H) 2.0 - 8.3 x10*3/uL [facility] Imm Gran Abs Auto 0.08(H) 0.00 - 0.03 X10*3/uL [facility] Lymphocytes Absolute Auto 1.6 1.2 - 4.9 X10*3/uL [facility] Monocytes Absolute Auto 0.9 0.1 - 1.2 X10*3/uL [facility] Eosinophils Absolute Auto 0.0 0.0 - 0.4 X10*3/uL [facility] Basophils Absolute Auto 0.0 0.0 - 0.2 X10*3/uL [facility] NRBC Abs Auto 0.000 0.0 - 0.012 X10*3/uL [facility] 01/21/2025 1:46 PM EDT 01/21/2025 1:55 PM EDT us Generic External Data Provider LAB BLOOD ORDERAB LES Final Result [facility] [address] [place] [phone] * XR Chest 1 View (01/21/2025 1:20 PM EDT) Anatomical Region Laterality Modality Chest Radiographic Pebbles ging 01/21/2025 1:20 PM EDT Narrative 01/21/2025 1:43 PM EDT ? [facility] ?[address] ?[place] [address] ?XRay Report ? Signed ? Patient: Younes,Abbas ?MR#: [id number] ? : 1950 ?Acct:[id number] ? Age/Sex: 74 / M ?ADM Date: 01/21/25 ? Loc: HO.ED ? Attending Dr: ? Ordering Physician: Rolando William MD ?? Date of Service: 01/21/25 ?? Procedure(s): XR chest 1V ?? Accession Number(s): [id number] ? cc: Mehran Edward MD; Rolando William MD ? EXAMINATION: ??XR CHEST 1 VIEW ? HISTORY: dyspnea ? COMPARISON: Comparison is made with the prior examination dated ?? 10/04/2024. ? FINDINGS: ??A single AP portable view of the chest performed at 1:28 PM ?? is submitted. The lungs remain hyperinflated with flattening of the ?? hemidiaphragms, consistent with COPD. There are patchy opacities at the ?? right lung base which may represent early pneumonia. The left lung is ?? clear. ??There is no pleural effusion, pneumothorax, or pulmonary ?? vascular congestion. ??The heart is normal in size. ??The bones are ?? intact. ? XR/XR chest 1V ?? IMPRESSION: ?? COPD. Findings suggestive of early right basilar pneumonia. Follow-up ?? is recommended. ? Electronically signed by: ??Kolby Chowdhury MD ??01/21/2025 01:41 PM EDT ?? RP ? Dictated By: ?Kolby Chowdhury MD ? Signed By: ?<Electronically signed by Kolby Chowdhury MD in OV> ?01/21/25 1341 ? DD/ 1320 ? TD/TT: 01/21/25 1330 ? Broiler Chef Or Cook: ? Procedure Note Donotuseinterpreter, Image - 01/21/[address] [address] XRay Report Signed Patient: Annabella West#: [id number] : 1950cct:[id number] Age/Sex: 74 / MADM Date: 01/21/25 Loc: HO.ED Attending Dr: Ordering Physician: Rolando William MD Date of Service: 01/21/25 Procedure(s): XR chest 1V Accession Number(s): [id number] cc: Name,Mehran NAJERA; Rolando William MD EXAMINATION: XR CHEST 1 VIEW HISTORY: dyspnea COMPARISON: Comparison is made with the prior examination dated 10/04/2024. FINDINGS: A single AP portable view of the chest performed at 1:28 PM is submitted. The lungs remain hyperinflated with flattening of the hemidiaphragms, consistent with COPD. There are patchy opacities at the right lung base which may represent early pneumonia. The left lung is clear. There is no pleural effusion, pneumothorax, or pulmonary vascular congestion. The heart is normal in size. The bones are intact. XR/XR chest 1V IMPRESSION: COPD. Findings suggestive of early right basilar pneumonia. Follow-up is recommended. Electronically signed by: Kolby Chowdhury MD 01/21/2025 01:41 PM EDT RP Dictated By: Kolby Chowdhury MD Signed By: <Electronically signed by Kolby Chowdhury MD in OV> 01/21/25 1341 DD/ 1320 TD/TT: 01/21/25 1330 Broiler Chef Or Cook: [facility] External Provider IMG XR PROCEDURES Final Result * XR Lumbar Spine 2-3 Views (11/26/2024 2:05 PM EDT) Anatomical Region Laterality Modality Spine, L-spine Radiographic Pebbles ging 11/26/2024 2:05 PM EDT Narrative 11/26/2024 2:39 PM EDT ? [facility] ?[address] ?[place] [address] ?XRay Report ? Signed ? Patient: Younes,Abbas ?MR#: [id number] ? : 1950 ?Acct:[id number] ? Age/Sex: 74 / M ?ADM Date: 11/26/24 ? Loc: HO.HHCL ? Attending Dr: Mehran Edward MD ? Ordering Physician: Mehran Edward MD ?? Date of Service: 11/26/24 ?? Procedure(s): XR lumbar spine 2-3V ?? Accession Number(s): [id number] ? cc: Wagner,Mehran NAJERA ? EXAMINATION: ?? [...] DD/ 1405 ? TD/TT: 11/26/24 1420 ? Broiler Chef Or Cook: ? Procedure Note Donotuseinterpreter, Image - 11/30/2024 [address] [place] [address] XRay Report Signed Patient: Annabella West#: [id number] : 1950cct:[id number] Age/Sex: 74 / MADM Date: 11/26/24 Loc: HO.[facility] Attending Dr: Mehran Edward MD Ordering Physician: Mehran Edward MD Date of Service: 11/26/24 Procedure(s): XR lumbar spine 2-3V Accession Number(s): [id number] cc: Mehran Edward MD EXAMINATION: XR LUMBOSACRAL [...] 11/26/24 1435 DD/ 1405 TD/TT: 11/26/24 1420 Broiler Chef Or Cook: Mehran Edward MD IM XR PROCEDURES Edited Result - Final * T-SPOT??.TB (11/26/2024 10:56 AM EDT) Pathologist [facility] T Spot TB Negative Negative [facility] Comment:A negative test resu lt [...] as aquantitative test. TS PANEL A 0 [facility] TS PANEL B 0 [facility] Negative Control Passed [facility] Positive Control Passed [facility] Comment:For additional infor paula, please refer tohttp://education.RealGravity/faq/[email or web address](This link is being provided for informational/educational purposes only.)THIS TEST WAS PERFORMED AT:[employer] [id number] [place] [id number] JI MD,PHD 11/26/2024 10:5 6 AM EDT 11/26/2024 1:32 PM EDT Mehran Edward MD LAB BLOOD ORDERABLES Final Resul t [facility] [address] [place] [phone] * (ABNORMAL) Lipid Panel, Standard (11/26/2024 10:56 AM EDT) Triglycerides 98 <150 mg/dL [facility] Comment:Desirable Triglyceri de: less than 150 mg/dLBorderline High Triglyceride 150-199 mg/dLHigh Triglyceride: 200-499 mg/dLVery High Triglyceride: greater than or equal to 5OO mg/dL Cholesterol 208(H) <200 mg/dL [facility] Comment:Desirable Cholestero l: less than 200 mg/dLBorderline High Cholesterol: 200-239 mg/dLHigh Cholesterol: greater than 239 mg/dL LDL Cholesterol Calculated 150(H) <100 mg/dL [facility] Comment:Desirable LDL: less than 100 mg/dLNear Optimal/Above Optimal LDL: 110- 129 mg/dLBorderline High LDL: 130-159 mg/dLHigh LDL: 160-189 mg/dLVery High LDL: greater than or equal to 190 mg/dL HDL Cholesterol 39(L) >40 mg/dL [facility] Comment:Desirable HDL: great er than 40 mg/dL Note: This HDL assay may give artificially low results in patients with liver disease. Blood Venous blood specimen / Unknown 11/26/2024 10:56 AM EDT 11/26/2024 1:32 PM EDT us Mehran Name LAB BLOOD ORDERABLES Final Resul t [facility] [address] [place] [phone] from Last 3 Months Insurance [facility] STAND[facility] Care Teams Waistband Setter Relationship Specialty Start Date End Date Name, MD Mehran [address] [place] [address] PCP - General Internal Medicine 11/26/24
--- OUTSIDE RECORDS SUMMARY | 2025-01-21 14:23 | XMS_ITS | Encounter Summary ---
Author Organization [employer] Address [address] [facility] [address] [place] [address] Care Team Providers Care Loan Approver Name Role Phone Name, Mehran NAJERA Primary Care Provider [phone] Encounter Details Date Type Department Care Team (Late st Contact Info) Description 01/21/2025 Orders Only [facility] External Provider, [facility] Social History Tobacco Use Types Packs/Day Years [...] AM EST documented as of this encounter Plan of Treatment Upcoming Encounters Date Type Department Care Team (Late st Contact Info) Description 03/23/2025 11:30 AM EDT Office Visit [facility] [address] [facility], [place] [address] Name, MD Mehran [address] [place] [address] documented as of this encounter Procedures Procedure Name Priority Date/Time Associated Diagnosis [...] 1 VIEW Routine 01/21/2025 1:20 PM EDT documented in this encounter Results * (ABNORMAL) VENOUS BLOOD GAS (01/21/2025 1:57 PM EDT) VBG pH 7.47(H) 7.32 - 7.43 [facility] Comment:METER #: [id number] additional_comment: Cb patelha VBG PCO2 33 mmHg [facility] Comment:METER #: [id number] additional_comment: Cb patelha VBG PO2 63 mmHg [facility] Comment:METER #: [id number] additional_comment: Minh leavitt VBG Base Excess 2.0 mmol/L [facility] Comment:METER #: [id number] additional_comment: Minh leavitt VBG HCO3 24 22 - 26 mmol/L [facility] Comment:METER #: [id number] additional_comment: Minh leavitt O2 Sat, Mitch 93.0 % [facility] Comment:METER #: [id number] additional_comment: Minh leavitt 01/21/2025 1:57 PM EDT 01/21/2025 2:00 PM EDT Generic External Data Provider LAB BLOOD ORDERAB LES Final Result Performing Organization Address [facility] Co de Phone Number [facility] [address] [place] [phone] * High Sensitivity Troponin I (01/21/2025 1:50 PM EDT) [facility] TROPONIN I HIGH SENSITIVITY <2.7 <3.5 - 35.0 ng/L [facility] Comment:The Patrick high sens itivity Troponin-I results should beused in conjunction with other diagnostic information suchas ECG, clinical observations and information, and patientsymptoms to aid in the diagnosis of [place]. 01/21/2025 1:50 PM EDT 01/21/2025 1:55 PM EDT Generic External Data Provider LAB BLOOD ORDERAB LES Final Result Performing Organization Address [facility] Co de Phone Number [facility] [address] [place] [phone] * B Type Natriuretic Peptide (BNP) (01/21/2025 1:50 PM EDT) [facility] B Type Natriuretic Peptide 11 <100 pg/mL [facility] 01/21/2025 1:50 PM EDT 01/21/2025 1:55 PM EDT Generic External Data Provider LAB BLOOD ORDERAB LES Final Result Performing Organization Address City/[facility]/ZIP Co de Phone Number [facility] [address] [place] [phone] * Hepatic Function Panel (01/21/2025 1:47 PM EDT) Bilirubin, Direct 0.3 0.0 - 0.5 mg/dL [facility] 01/21/2025 1:47 PM EDT 01/21/2025 1:55 PM EDT Generic External Data Provider LAB BLOOD ORDERAB LES Final Result Performing Organization Address [facility] Co de Phone Number [facility] [address] [place] [phone] * (ABNORMAL) Comprehensive Metabolic Panel (01/21/2025 1:47 PM EDT) Sodium 130(L) 135 - 145 mmol/L [facility] Potassium 3.7 3.3 - 5.1 mmol/L [facility] Chloride 98 96 - 108 mmol/L [facility] Carbon Dioxide 24 22 - 29 mmol/L [facility] Anion Gap 12 12 - 20 [facility] Urea Nitrogen (BUN) 13 9 - 16 mg/dL [facility] Creatinine, Serum 0.69 0.5 - 1.4 mg/dL [facility] Creatinine Clr Calc Pharmacy 81.7 [facility] Comment:eGFR (calculated fro m the MDRD study equation) and eCrCl(calculated from the Cockcroft-Gault equation) are based ondifferent parameters and may not yield comparable results.If eCrCl result is absurd, please check patient'sheight/weight. Estimated Glomerular Filt Rate >60 [facility] Comment:Chronic Kidney Disea se: Estimated GFR < 60 mL/min/1.11t1Dagxce Kidney Disease: Estimated GFR < 15 mL/min/1.73m2 Glucose 152(H) 60 - 115 mg/dL [facility] Calcium 9.3 8.4 - 10.2 mg/dL [facility] Bilirubin, Total 0.9 0.0 - 1.0 mg/dL [facility] Aspartate Amino Transferase 20 5 - 37 U/L [facility] Alanine Aminotransferase 19 0 - 40 U/L [facility] Total Protein 7.6 6.5 - 8.0 g/dL [facility] Albumin Level 4.1 3.5 - 5.0 g/dL [facility] Alkaline Phosphatase 66 39 - 117 U/L [facility] 01/21/2025 1:47 PM EDT 01/21/2025 1:55 PM EDT us Generic External Data Provider LAB BLOOD ORDERAB LES Final Result [facility] [address] [place] [phone] * (ABNORMAL) CBC auto differential (01/21/2025 1:46 PM EDT) White Blood Count 14.3(H) 4.8 - 10.8 X10*3/uL [facility] Red Blood Count 4.53(L) 4.60 - 5.80 X10*6/uL [facility] Hemoglobin 13.3(L) 14.0 - 18.0 g/dl [facility] Hematocrit 39.2(L) 42.0 - 52.0 % [facility] Mean Corpuscular Volume 86.5 80.0 - 98.0 fL [facility] Mean Corpuscular Hemoglobin 29.4 27.0 - 33.0 pg [facility] Mean Corpuscular HGB Conc 33.9 31.0 - 36.0 g/dl [facility] Red Cell Distribution Width 12.9 11.0 - 16.0 % [facility] Platelet Count 163 160 - 400 X10*3/uL [facility] Mean Platelet Volume 9.6 9.4 - 12.4 fL [facility] Neutrophils Percent Auto 81.5(H) 45 - 73 % [facility] Imm Gran Pct Auto 0.6(H) 0.0 - 0.4 % [facility] Lymphocytes Percent Auto 11.1(L) 20 - 40 % [facility] Monocytes Percent Auto 6.4 2 - 11 % [facility] Eosinophils Percent Auto 0.1 0 - 4 % [facility] Basophils Percent Auto 0.3 0 - 2 % [facility] NRBC Pct Auto 0.0 0.0 - 0.2 /100WBC [facility] Neutrophils Absolute Auto 11.7(H) 2.0 - 8.3 x10*3/uL [facility] Imm Gran Abs Auto 0.08(H) 0.00 - 0.03 X10*3/uL [facility] Lymphocytes Absolute Auto 1.6 1.2 - 4.9 X10*3/uL [facility] Monocytes Absolute Auto 0.9 0.1 - 1.2 X10*3/uL [facility] Eosinophils Absolute Auto 0.0 0.0 - 0.4 X10*3/uL [facility] Basophils Absolute Auto 0.0 0.0 - 0.2 X10*3/uL [facility] NRBC Abs Auto 0.000 0.0 - 0.012 X10*3/uL [facility] 01/21/2025 1:46 PM EDT 01/21/2025 1:55 PM EDT us Generic External Data Provider LAB BLOOD ORDERAB LES Final Result [facility] [address] [place] [phone] * XR Chest 1 View (01/21/2025 1:20 PM EDT) Anatomical Region Laterality Modality Chest Radiographic Pebbles ging 01/21/2025 1:20 PM EDT Narrative 01/21/2025 1:43 PM EDT ? [facility] ?[address] ?[place] [address] ?XRay Report ? Signed ? Patient: Younes,Abbas ?MR#: [id number] ? : 1950 ?Acct:[id number] ? Age/Sex: 74 / M ?ADM Date: 01/21/25 ? Loc: HO.ED ? Attending Dr: ? Ordering Physician: Rolando William MD ?? Date of Service: 01/21/25 ?? Procedure(s): XR chest 1V ?? Accession Number(s): [id number] ? cc: Mehran Edward MD; Rolando William [...] DD/ 1320 ? TD/TT: 01/21/25 1330 ? Concession Attendant: ? Procedure Note Karthik Aguilera - 01/21/[address] [address] XRay Report Signed Patient: Annabella West#: [id number] : 1Acct:[id number] Age/Sex: 74 / MADM Date: 01/21/25 Loc: HO.ED Attending Dr: Ordering Physician: Rolando William MD Date of Service: 01/21/25 Procedure(s): XR chest 1V Accession Number(s): [id number] cc: Mehran Edward MD; Rolando William MD EXAMINATION: XR CHEST 1 [...] 01/21/25 1341 DD/ 1320 TD/TT: 01/21/25 1330 Concession Attendant: [facility] External Provider IMG XR PROCEDURES Final Result documented in this encounter Visit Diagnoses Not on filedocumented in this encounter Additional Health Concerns Assessment Noted Time PHQ-9 Depression Total Score: 27 025 10:30 AM EDT documented as of this encounter Care Teams Loan Approver Relationship Specialty Start Date End Date Name, MD Mehran [address] [place] [phone] PCP - General Internal Medicine 11/26/24 documented as of this encounter
--- OUTSIDE RECORDS SUMMARY | 2025-01-21 14:23 | XMS_ITS | Encounter Summary ---
Author Organization [employer] Address [address] [facility] [address] [place] [address] Care Team Providers Care Spinning Doffer Name Role Phone Name, Mehran NAJERA Primary Care Provider [phone] Reason for Visit * Reason Onset Date Comments Med Refill 01/17/2025 Patient requesti ng med refill for Meloxicam Encounter Details Date Type Department Care Team (Late st Contact Info) Description 01/17/2025 Refill [facility] [address] [place] [address] Name, MD Mehran [address] [place], [place] [phone] Social History Tobacco Use Types Packs/Day Years [...] Description 03/23/2025 11:30 AM EDT Office Visit [facility] [address] [place] [address] Name, MD Mehran [address] [place] [address] documented as of this encounter Visit Diagnoses Not on filedocumented in this encounter Additional Health Concerns Assessment Noted Time PHQ-9 Depression Total Score: 27 025 10:30 AM EDT documented as of this encounter Care Teams Spinning Doffer Relationship Specialty Start Date End Date Name, MD Mehran [address] [place] [address] PCP - General Internal Medicine 11/26/24 documented as of this encounter
[2025-01-21 14:26] LABS: Lactic Acid 0.9 mmol/L (0.5-2.0)
[2025-01-21 14:37] LABS: Influenza A PCR NEGATIVE (Negative); Influenza B PCR NEGATIVE (Negative); Resp Syncy Virus RNA Qual PCR NEGATIVE (Negative); SARS COV2 PCR INHOUSE NEGATIVE (Negative)
[2025-01-21 14:43] LABS: INTERNATIONAL NORM RATIO 1.2 (0.9-1.1); Prothrombin Time 14.1 SEC (10.9-12.4)
[2025-01-21 14:45] LABS: Partial Thromboplastin Time 33.4 SEC (26.0-36.8)
--- NOTE | 2025-01-21 15:22 | P.HPHOSP_ITS ---
History of Present Illness Date of Service: 01/21/25 Chief Complaint: SOB on exertion 74 year old male with a PMH of COPD, former smoker quit 7 years ago smoked for 50 years, HLD, Chronic back pain, and depression. Presents to the ER today with SOB on exertion and mild fever that began yesterday. He denies chills, cough, sputum production, CP or palpitations. In the ER labs drawn were significant for a WBC 14.3. CXR shows right basilar pneumonia. Trops, BNP and LA were all flat. Respiratory panel were all negative. Patient received IV ABXs Ceftriaxone and Doxycycline , Nebs, a 30ml/kg bolus, and blood cultures were drawn. Review of Systems 2 Review of Systems: All other systems reviewed and were negative upon evaluation. [facility] Medical History Suspected chronic obstructive pulmonary disease based on initial evaluation Anxiety Depression Social History (System 11/30/24 @ 15:47 by Carrie Asencio) Advance Directives: No Advance Directives Information Provided: Yes Do you have a plan to hurt others: No Plan Meds Allergies Allergy/AdvReac Type Severity Reaction Status Date / Time No Known Allergies Allergy Verified 01/21/25 13:17 Home Medications ?Medication ?Instructions ?Recorded ?Confirmed ?Last Taken ?Type acetaminophen 325 mg tablet 325 mg PO Q4H PRN Pain/Headache 01/21/25 01/21/25 Unknown History albuterol sulfate 90 mcg/actuation 2 puff inhalation Q6H PRN 01/21/25 01/21/25 01/20/25 History aerosol inhaler shortness of breath or wheezing atorvastatin 20 mg tablet 20 mg PO DAILY 01/21/25 Unknown History fluticasone propionate 230 2 puff inhalation 01/21/25 Unknown History mcg-salmeterol 21 mcg/actuation HFA inhaler (Advair HFA) meloxicam 7.5 mg tablet 7.5 mg PO DAILY 01/21/25 Unknown History sertraline 100 mg tablet 100 mg PO DAILY 01/21/25 Unknown History Physical Exam 2 Vital Signs and Narrative: Vital Signs: Last Vital Signs Temp 99.8 F 01/21/25 13:16 Pulse 103 H 01/21/25 14:14 Resp 23 H 01/21/25 14:14 BP 148/72 H 01/21/25 13:16 Pulse Ox 93 01/21/25 13:16 O2 Del Method Room Air 01/21/25 13:16 BMI result Body Mass Index 25.8 Gen: comfortable NAD ?HEENT: PERRL, EOMI ?Neuro: CN II-XII normal, sensation intact: 5/5 strength in the upper extremities and lower extremities ?II: Pupils equal and reactive, ?III, IV, : EOM intact, no gaze preference or deviation, no nystagmus. ?V: normal sensation in V1, V2, and V3 segments bilaterally ?VII: no asymmetry, no nasolabial fold flattening ?VIII: normal hearing to speech ?IX, X: normal palatal elevation, no uvular deviation ?XI: 5/5 head turn and 5/5 shoulder shrug bilaterally ?XII: midline tongue protrusion ?CV: tachy with a regular rhythm, no M/R/G ?Pulm: expiratory wheeze, diminshed ?GI: +nl BS, soft, NDNT ?ext: no C/C/E Results Labs 01/21/25 13:46 01/21/25 13:47 Labs: Laboratory Results - last 24 hr 01/21/25 01/21/25 01/21/25 13:46 13:46 13:46 MCV 86.5 MCH 29.4 MCHC 33.9 RDW 12.9 Plt Count 163 D MPV 9.6 Immature Gran % (Auto) 0.6 H Neut % (Auto) 81.5 H Lymph % (Auto) 11.1 L [place] % (Auto) 6.4 Eos % (Auto) 0.1 Baso % (Auto) 0.3 Lymph # (Auto) 1.6 [place] # (Auto) 0.9 Eos # (Auto) 0.0 Baso # (Auto) 0.0 Abs Immat Gran (auto) 0.08 H Absolute Neuts (auto) 11.7 H Absolute Nucleated RBC 0.000 Nucleated RBC % (auto) 0.0 PT INR APTT VBG pH VBG pCO2 VBG pO2 VBG HCO3 VBG O2 Saturation VBG Base Excess Anion Gap Estim Creat Clear Calc Estimated GFR Random Glucose Lactic Acid 0.9 Cancelled Cancelled Calcium Total Bilirubin Direct Bilirubin AST ALT Alkaline Phosphatase B-Natriuretic Peptide Total Protein Albumin Influenza Type A (PCR) NEGATIVE Influenza Type B (PCR) NEGATIVE RSV RNA Qual (PCR) NEGATIVE SARS-CoV-2 RNA (RT-PCR) NEGATIVE 01/21/25 01/21/25 01/21/25 13:47 13:50 13:57 MCV MCH MCHC RDW Plt Count MPV Immature Gran % (Auto) Neut % (Auto) Lymph % (Auto) [place] % (Auto) Eos % (Auto) Baso % (Auto) Lymph # (Auto) [place] # (Auto) Eos # (Auto) Baso # (Auto) Abs Immat Gran (auto) Absolute Neuts (auto) Absolute Nucleated RBC Nucleated RBC % (auto) PT INR APTT VBG pH 7.47 H VBG pCO2 33 VBG pO2 63 VBG HCO3 24 VBG O2 Saturation 93.0 VBG Base Excess 2.0 Anion Gap 12 Estim Creat Clear Calc 81.7 Estimated GFR > 60 Random Glucose 152 H Lactic Acid Calcium 9.3 Total Bilirubin 0.9 Direct Bilirubin 0.3 AST 20 ALT 19 Alkaline Phosphatase 66 B-Natriuretic Peptide 11 Total Protein 7.6 Albumin 4.1 Influenza Type A (PCR) Influenza Type B (PCR) RSV RNA Qual (PCR) SARS-CoV-2 RNA (RT-PCR) 01/21/25 14:24 MCV MCH MCHC RDW Plt Count MPV Immature Gran % (Auto) Neut % (Auto) Lymph % (Auto) [place] % (Auto) Eos % (Auto) Baso % (Auto) Lymph # (Auto) [place] # (Auto) Eos # (Auto) Baso # (Auto) Abs Immat Gran (auto) Absolute Neuts (auto) Absolute Nucleated RBC Nucleated RBC % (auto) PT 14.1 H INR 1.2 H APTT 33.4 VBG pH VBG pCO2 VBG pO2 VBG HCO3 VBG O2 Saturation VBG Base Excess Anion Gap Estim Creat Clear Calc Estimated GFR Random Glucose Lactic Acid Calcium Total Bilirubin Direct Bilirubin AST ALT Alkaline Phosphatase B-Natriuretic Peptide Total Protein Albumin Influenza Type A (PCR) Influenza Type B (PCR) RSV RNA Qual (PCR) SARS-CoV-2 RNA (RT-PCR) Imaging Radiologist's Impressions: Impressions Chest X-Ray 01/21/25 13:20 IMPRESSION: COPD. Findings suggestive of early right basilar pneumonia. Follow-up is recommended. Electronically signed by: Kolby Chowdhury MD 01/21/2025 01:41 PM EDT Assessment and Plan (1) Sepsis: Status: Acute (2) Pneumonia: Status: Acute Plan 74 year old male with a PMH of COPD, former smoker, HLD, Chronic back pain, and depression. Presents to the ER today with SOB on exertion. CXR showing right basilar PNA. Patient meets SIRS criteria WBC 14.3, HR 101, RR 25. Sepsis due to PNA -Continue to monitor for worsening -IV ABX -LA flat -Blood cultures pending COPD exacerbation -Continue IV ABX -Nebs Bronchial dilator ambar and PRN -IV solumedrol HLD -Continue Atorvastatin Depression -continue home Sertraline Code -Full VTE -Lovenox SC Meds reconciled Quality Stroke Does the patient have a stroke diagnosis?: No VTE Prior VTE?: No VTE Risk Level:: Medical - moderate - high VTE Device Contraindication: Treatment Not Indicated VTE Drug Contraindication: N/A - Med Ordered
[2025-01-21] MEDS: Acetaminophen 325 MG TABLET 975 MG PO (15:46)
[2025-01-21] MEDS: Ibuprofen 600 MG TABLET PO (15:47)
--- NOTE | 2025-01-21 16:00 | PHA.MEDREC ---
Addendum entered by Ephraim Hart 01/21/25 16:05: reviewed Original Note: Pharmacy Consult ? Medication Reconciliation Pharmacy has completed the medication reconciliation. Spoke with patients daughter over the phone who was able to confirm the patients medications.
[2025-01-21] MEDS: Albuterol/Iprat 2.5/0.5MG 3 ML AMPUL.NEB INHALE (19:04)
--- NOTE | 2025-01-21 19:07 | PC.NURSE ---
this rn assumed care of pt, pt resting in stretcher, no acute distress noted. rt at bedside administering breathing treatment. pt 95% on room air. nsr on tele.
[2025-01-21] MEDS: Melatonin 3 MG TABLET 6 MG PO (20:58)
[2025-01-21] MEDS: methylPREDNISolone Sod Succ 40 MG/ML VIAL IVPUSH (20:58)
[2025-01-21] MEDS: NaPROXEN 250 MG TABLET PO (21:05)
[2025-01-22] MEDS: Doxycycline Hyclate 100 MG in 0.9 % Sodium Chloride 250 ML 166.67 MG IV (01:30)
[2025-01-22 01:52] VITALS: BMI 25.7
[2025-01-22 03:07] VITALS: BP 107/54; PULSE 62; RESP 18; TEMP 36.1; O2SAT 94
[2025-01-22 07:41] VITALS: PULSE 62; RESP 18; O2SAT 97
[2025-01-22] MEDS: Albuterol/Iprat 2.5/0.5MG 3 ML AMPUL.NEB INHALE (07:41)
[2025-01-22 07:45] LABS: Alanine Aminotransferase 17 U/L (0-40); Albumin Level 3.6 g/dL (3.5-5.0); Alkaline Phosphatase 57 U/L (39-117); Anion Gap 14 (12-20); Aspartate Amino Transferase 16 U/L (5-37); Bilirubin Total 0.4 mg/dL (0.0-1.0); Blood Urea Nitrogen 15 mg/dL (9-16); Calcium 9.4 mg/dL (8.4-10.2); Carbon Dioxide 24 mmol/L (22-29); Chloride 106 mmol/L (96-108); Creatinine Clr Calc Pharmacy 81.7; Estimated Glomerular Filt Rate > 60; Glucose Random 223 mg/dL (60-115); Potassium 4.4 mmol/L (3.3-5.1); Sodium 140 mmol/L (135-145); Total Protein 6.9 g/dL (6.5-8.0)
[2025-01-22 07:53] VITALS: BP 112/58; PULSE 65; RESP 20; TEMP 36.1; O2SAT 97
[2025-01-22] MEDS: NaPROXEN 250 MG TABLET PO (08:12)
[2025-01-22] MEDS: methylPREDNISolone Sod Succ 40 MG/ML VIAL IVPUSH (08:13)
[2025-01-22] MEDS: Atorvastatin Calcium 20 MG TABLET PO (08:13)
[2025-01-22] MEDS: Sertraline HCL 100 MG TABLET PO (08:13)
[2025-01-22] MEDS: 0.9 % Sodium Chloride Flush 3 ML SYRINGE IVFLUSH (08:13)
--- NOTE | 2025-01-22 09:50 | P.DS_ITS ---
DS: Providers Provider Date of Service: 01/22/25 Date of admission: 01/21/25 14:49 Date of discharge: 01/22/25 Primary care physician: Mehran Edward MD DS: Diagnosis Discharge Diagnosis (1) Sepsis: Status: Acute (2) Pneumonia: Status: Acute DS: Summary Hospital Course Hospital Course: Chief Complaint: Shortness of breath (SOB) History: A 74-year-old male with a past medical history of COPD, hyperlipidemia, chronic back pain, depression, and a [id number] smoking history (quit 7 years ago) presents to the ER with shortness of breath on exertion and a mild fever that started the day prior. He denies chills, cough, sputum production, chest pain, or palpitations. Emergency Department Course: Laboratory studies revealed a WBC of 14.3. Chest X-ray demonstrated a right basilar pneumonia. Troponin, BNP, and lactic acid were all within normal limits. A respiratory viral panel was negative. He was treated with: * IV ceftriaxone and doxycycline * Nebulized bronchodilators * A 30 mL/kg IV fluid bolus * Blood cultures were obtained Hospital Course: Upon admission, he was continued on ceftriaxone and azithromycin for community- acquired pneumonia, and treated for a COPD exacerbation with bronchodilators and systemic corticosteroids. He demonstrated rapid clinical improvement, with resolution of shortness of breath by the next day. WBC down to 13 from 14 and likely high due to steroid. He is presently breathing comfortably with oxygen saturation of 97% on room air and expressed that he feels well and ready for discharge. Discharge Plan: * Cefuroxime 500 mg PO BID for 5 more days * Doxycycline 100 mg PO BID or 5 more days For a total of 7 days of antibiotics * Prednisone 40 mg daily to complete a 5-day course (4 more days remaining) * Continue home inhalers as prescribed * Follow-up with PCP within 1 week * Repeat chest X-ray in 1?2 weeks DC plan discussed with son at bedside, and all questions answered to their statisfaction Time Attestation Discharge Coordination Time (in mins): 45 Quality: Safe Use of Opioids Does Pt have an Active Cancer Diagnosis on the Problem List?: No Quality: Stroke Does the patient have a stroke diagnosis?: No Physical Exam Vital Signs: Vital Signs: Last Vital Signs Temp 97.0 F 01/22/25 07:53 Pulse 65 01/22/25 07:53 Resp 20 01/22/25 07:53 BP 112/58 L 01/22/25 07:53 Pulse Ox 97 01/22/25 07:53 O2 Del Method Room Air 01/22/25 07:53 BMI result Body Mass Index 25.7 DS: Data Data Completed and Pending Labs on day of discharge: Laboratory Results - last 24 hr 01/21/25 01/21/25 01/21/25 13:46 13:46 13:46 WBC 14.3 H RBC 4.53 L Hgb 13.3 L Hct 39.2 L MCV 86.5 MCH 29.4 MCHC 33.9 RDW 12.9 Plt Count 163 D MPV 9.6 Immature Gran % (Auto) 0.6 H Neut % (Auto) 81.5 H Lymph % (Auto) 11.1 L [place] % (Auto) 6.4 Eos % (Auto) 0.1 Baso % (Auto) 0.3 Lymph # (Auto) 1.6 [place] # (Auto) 0.9 Eos # (Auto) 0.0 Baso # (Auto) 0.0 Abs Immat Gran (auto) 0.08 H Absolute Neuts (auto) 11.7 H Absolute Nucleated RBC 0.000 Nucleated RBC % (auto) 0.0 Hold Purple Top PT INR APTT VBG pH VBG pCO2 VBG pO2 VBG HCO3 VBG O2 Saturation VBG Base Excess Sodium Potassium Chloride Carbon Dioxide Anion Gap BUN Creatinine Estim Creat Clear Calc Estimated GFR Random Glucose Lactic Acid 0.9 Cancelled Cancelled Calcium Total Bilirubin Direct Bilirubin AST ALT Alkaline Phosphatase Troponin I High Sens B-Natriuretic Peptide Total Protein Albumin Influenza Type A (PCR) NEGATIVE Influenza Type B (PCR) NEGATIVE RSV RNA Qual (PCR) NEGATIVE SARS-CoV-2 RNA (RT-PCR) NEGATIVE 01/21/25 01/21/25 01/21/25 13:47 13:50 13:57 WBC RBC Hgb Hct MCV MCH MCHC RDW Plt Count MPV Immature Gran % (Auto) Neut % (Auto) Lymph % (Auto) [place] % (Auto) Eos % (Auto) Baso % (Auto) Lymph # (Auto) [place] # (Auto) Eos # (Auto) Baso # (Auto) Abs Immat Gran (auto) Absolute Neuts (auto) Absolute Nucleated RBC Nucleated RBC % (auto) Hold Purple Top PT INR APTT VBG pH 7.47 H VBG pCO2 33 VBG pO2 63 VBG HCO3 24 VBG O2 Saturation 93.0 VBG Base Excess 2.0 Sodium 130 L Potassium 3.7 Chloride 98 Carbon Dioxide 24 Anion Gap 12 BUN 13 Creatinine 0.69 Estim Creat Clear Calc 81.7 Estimated GFR > 60 Random Glucose 152 H Lactic Acid Calcium 9.3 Total Bilirubin 0.9 Direct Bilirubin 0.3 AST 20 ALT 19 Alkaline Phosphatase 66 Troponin I High Sens < 2.7 B-Natriuretic Peptide 11 Total Protein 7.6 Albumin 4.1 Influenza Type A (PCR) Influenza Type B (PCR) RSV RNA Qual (PCR) SARS-CoV-2 RNA (RT-PCR) 01/21/25 01/22/25 14:24 07:02 WBC RBC Hgb Hct MCV MCH MCHC RDW Plt Count MPV Immature Gran % (Auto) Neut % (Auto) Lymph % (Auto) [place] % (Auto) Eos % (Auto) Baso % (Auto) Lymph # (Auto) [place] # (Auto) Eos # (Auto) Baso # (Auto) Abs Immat Gran (auto) Absolute Neuts (auto) Absolute Nucleated RBC Nucleated RBC % (auto) Hold Purple Top SEE NOTE PT 14.1 H INR 1.2 H APTT 33.4 VBG pH VBG pCO2 VBG pO2 VBG HCO3 VBG O2 Saturation VBG Base Excess Sodium 140 Potassium 4.4 Chloride 106 Carbon Dioxide 24 Anion Gap 14 BUN 15 Creatinine 0.69 Estim Creat Clear Calc 81.7 Estimated GFR > 60 Random Glucose 223 H Lactic Acid Calcium 9.4 Total Bilirubin 0.4 Direct Bilirubin AST 16 ALT 17 Alkaline Phosphatase 57 Troponin I High Sens B-Natriuretic Peptide Total Protein 6.9 Albumin 3.6 Influenza Type A (PCR) Influenza Type B (PCR) RSV RNA Qual (PCR) SARS-CoV-2 RNA (RT-PCR) Discharge Plan Discharge Anticipated Discharge Date/Time: 01/22/25 09:47 Patient Disposition: Home, Self-Care Discharge Diagnosis: Sepsis, pneumonia, Copd exacerbation Referrals: Name,MD Mehran [Primary Care Provider] - 1 Week Discharge Medications: New cefuroxime axetil 500 mg tablet 500 mg PO BID 5 Days Qty: 10 0RF prednisone 20 mg tablet 40 mg PO DAILY 4 Days Qty: 8 0RF doxycycline monohydrate 100 mg capsule 100 mg PO BID Qty: 11 0RF Continued albuterol sulfate 90 mcg/actuation HFA aerosol inhaler 2 puff inhalation Q6H PRN (Reason: shortness of breath or wheezing) acetaminophen 325 mg Tablet 325 mg PO Q4H PRN (Reason: Pain/Headache) fluticasone propion-salmeterol [Advair HFA] 230-21 mcg/actuation HFA aerosol inhaler 2 puff inhalation BID meloxicam 7.5 mg tablet 7.5 mg PO DAILY sertraline 100 mg tablet 100 mg PO DAILY atorvastatin 20 mg tablet 20 mg PO DAILY Discharge Orders: Discharge Order (Routine); Ordered 01/22/25 Ordered By: Torsten Earl Diet: Advance to usual diet Activity on Discharge: As tolerated Stand Alone Forms: Patient Portal Discharge page Print Language: Syriac Other Ambulatory Orders: XR chest 2V (Routine) Timeframe: 1 Week Facility: [facility] - Location: Radiology Ordered By: Torsten Earl Care Plan Goals: You came to the hospital with shortness of breath and a mild fever. Tests showed a right lung pneumonia and a COPD flare-up. Treatment Given in Hospital: * IV antibiotics * Breathing treatments (nebulizers) * Steroids for COPD * You improved quickly and now have no shortness of breath. Your oxygen is good on room air. Medications to Take at Home: * Cefuroxime 500 mg ? Take 1 pill twice a day for 5 more days * Doxycycline 100 mg ? Take 1 pill twice a day for 5 more days * Prednisone 40 mg ? Take 1 pill daily (you have 4 days left) * Continue your usual inhalers Follow-up: * See your primary doctor within 1 week, call for appointment * Get a chest X-ray in 1?2 weeks to make sure the infection is gone Health Concerns: see above Plan of Treatment: see above Assessment: see above Patient Instructions: Cefuroxime (By mouth), Doxycycline (By mouth), Prednisone (By mouth)
[2025-01-22 09:58] LABS: MANUAL DIFF FLAG NO
--- NOTE | 2025-01-22 09:59 | MHC.CM.PN ---
Pt speaks Latvian, CM intake completed with pts daughter Geri ([phone]) via telephone call. Pt lives at home with his son/HCP Nico. He receives adult foster care services through [employer] and uses a cane, and a walker. Pts family will transport him home at discharge. Copy of HCP requested. PCP: Dr. Laurent Name
[2025-01-22 10:14] LABS: Basophils Percent Auto 0.2 % (0-2); Eosinophils Percent Auto 0.1 % (0-4); Hematocrit 36.8 % (42.0-52.0); Hemoglobin 12.2 g/dl (14.0-18.0); Imm Gran Abs Auto 0.12 X10*3/uL (0.00-0.03); Imm Gran Pct Auto 0.9 % (0.0-0.4); Lymphocytes Percent Auto 7.9 % (20-40); Mean Corpuscular HGB Conc 33.2 g/dl (31.0-36.0); Mean Corpuscular Hemoglobin 29.4 pg (27.0-33.0); Mean Corpuscular Volume 88.7 fL (80.0-98.0); Mean Platelet Volume 10.7 fL (9.4-12.4); Monocytes Absolute Auto 0.7 X10*3/uL (0.1-1.2); Neutrophils Absolute Auto 11.3 x10*3/uL (2.0-8.3); Neutrophils Percent Auto 85.9 % (45-73); Platelet Count 169 X10*3/uL (160-400); Red Blood Count 4.15 X10*6/uL (4.60-5.80); Red Cell Distribution Width 12.9 % (11.0-16.0); White Blood Count 13.1 X10*3/uL (4.8-10.8)
--- NOTE | 2025-01-22 16:04 | MHC.CM.PN ---
Pt medically cleared for discharge home self-care, pts family transported him home today.
== END 2025-01-22 11:35 | disposition home or self-care (01) | DRG 720 ==
LOC: HO.ED 14:36 → HO.EDOVER 14:51 → HO.IMC 19:11
PROVIDERS: Nurse Practitioner Acute Care; Admitting Provider Internal Medicine; Emergency Provider Emergency Medicine; PCP Internal Medicine Geriatric Medicine; Visit Provider Internal Medicine
DX: A41.9 Sepsis, unspecified organism (principal); J18.9 Pneumonia, unspecified organism; J44.0 Chronic obstructive pulmonary disease with (acute) lower respiratory infection; F32.A Depression, unspecified; J44.1 Chronic obstructive pulmonary disease with (acute) exacerbation; M54.9 Dorsalgia, unspecified; G89.29 Other chronic pain; Z79.51 Long term (current) use of inhaled steroids; Z87.891 Personal history of nicotine dependence; Z79.899 Other long term (current) drug therapy
CPT/HCPCS: 0241U; 36415; 71045; 80053; 82248; 82803; 83605; 83880; 84484; 85025; 85610; 85730; 87040; 93005; 94640; 99285; J0696; J1271; J2919; J7120

== ENCOUNTER → 2025-01-21 13:20 | Outpatient (BNV) | payer MEDICAID, SELFPAY | PROVIDERS: Emergency Provider Emergency Medicine; PCP Internal Medicine Geriatric Medicine; Visit Provider Radiology Diagnostic Radiology | DX: J44.9 Chronic obstructive pulmonary disease, unspecified (principal) | CPT/HCPCS: 71045 ==

== ENCOUNTER → 2025-01-21 13:20 | Outpatient (BNV) | payer MEDICAID, SELFPAY | PROVIDERS: Admitting Provider Internal Medicine; Emergency Provider Emergency Medicine; PCP Internal Medicine Geriatric Medicine; Visit Provider Internal Medicine | DX: R06.00 Dyspnea, unspecified (principal) | CPT/HCPCS: 93010 ==

== ENCOUNTER → 2025-01-21 14:49 | Outpatient (BNV) | payer MEDICAID, SELFPAY | PROVIDERS: Admitting Provider Internal Medicine; Emergency Provider Emergency Medicine; PCP Internal Medicine Geriatric Medicine; Visit Provider Nurse Practitioner Acute Care | DX: A41.9 Sepsis, unspecified organism (principal); J18.9 Pneumonia, unspecified organism | CPT/HCPCS: 99222; 99239 ==

== ENCOUNTER 2025-01-24 10:04 | Outpatient (REF) | payer MEDICAID, SELFPAY ==
--- NOTE | ~2025-01-24 | XR_ITS ---
EXAMINATION: XR CHEST CLINICAL INFORMATION: Follow up on pneumonia COMPARISON: January 21, 2025 TECHNIQUE: 2 views of the chest were obtained. FINDINGS: Pulmonary reticular pattern. Linear opacity both lung bases more as interrogated on the right side with blunting of the posterior costophrenic angles. No pneumothorax. Cardiomediastinal silhouette size is normal. Calcified plaque thoracic aortic arch. Multilevel thoracic and upper lumbar spondylosis. Mild kyphotic deformity lower thoracic spine. Degenerative changes in the shoulders. Osteopenia versus osteoporosis. XR/XR chest 2V IMPRESSION: Acute on chronic airspace disease with small thickening versus small volume pleural effusions. Overall slight improved aeration. Electronically signed by: Jermaine Osman MD 01/24/2025 10:54 AM EDT
--- NOTE | ~2025-01-24 | XR_ITS ---
EXAMINATION: XR LUMBOSACRAL SPINE BENDING FILMS ONLY CLINICAL INFORMATION: M43.16 - Spondylolisthesis, lumbar region COMPARISON: November 26, 2024. TECHNIQUE: Lateral views during flexion and extension. 2 views. FINDINGS: There is a 1.3 cm anterolisthesis at L4-5 during flexion and extension. There is an anterolisthesis with a lock morphology anteriorly between the inferior endplate of L4 and the superior endplate of L5. There is endplate sclerosis decreased intervertebral disc height at L4-5. Multilevel endplate sclerosis subchondral cyst formation and marginal osteophyte formation. There is a wedge-shaped compression deformity likely old representing 20% volume loss at T12. There is a grade 1 retrolisthesis at T12-L1 during extension position which corrects in flexion. XR/XR lumbar spine bending only IMPRESSION: Grade 1 anterolisthesis with a pseudoarthrosis at L4-5. No gross instability. Grade 1 retrolisthesis with likely instability at T12-L1. Electronically signed by: Jermaine Osman MD 01/24/2025 10:58 AM EDT
--- OUTSIDE RECORDS SUMMARY | 2025-01-24 10:30 | XMS_ITS | Clinical Summary ---
Author Organization [facility] Address [address] [place] [phone] Phone Care Team Providers Care Power Shear Operator Name Role Phone Physician, No Pcp Primary [...] to complete this topic Insurance MEDICAID - [id number] Care Teams Power Shear Operator Relationship Specialty Start Date End Date Physician, No Pcp PCP - General 09/26/24
--- OUTSIDE RECORDS SUMMARY | 2025-01-24 10:30 | XMS_ITS | Clinical Summary ---
Author Organization [employer] Address [address] [place] [address] Care Team Providers Care Licensing Coordinator Name Role Phone Name, Mehran NAJERA Primary Care Provider [phone] Allergies No known active allergies Medications * This document contains information received from the source organization and may not represent a complete record from that organization. tiotropium (Spiriva HandiHaler) 18 MCG inhalation capsuleIndicat ions:Chronic cough Place 1 capsule (18 mcg) into inhaler and inhale in the morning. 30 capsule 11/27/19 Active atorvastatin (Lipitor) 20 MG tablet Take 1 tablet (20 mg) by mouth Once per day. 30 tablet 11/30/19 25 026 Active sertraline (Zoloft) 100 MG tablet Take 1 tablet (100 mg) by mouth Once per day. 30 tablet 12/25/19 026 Active albuterol 108 (90 Base) MCG/ACT [...] day. 20 tablet 01/18/20 25 026 Active meloxicam (Mobic) 7.5 MG tablet Take 1 tablet (7.5 mg) by mouth Once per day. 20 tablet 12/25/19 25 025 Discontinued(Re order (will not trigger notification [...] pt is on new patient list at [facility]. Hearing loss 10/12/2024 Vision loss 10/12/2024 Hemoptysis 10/12/2024 Assessment & Plan (10/12/2024 1:40 PM EST): Cough x2 weeks that keeps worsening with recent hemoptysis. On exam pt is tachypneic, hypoxic with O2 SAT 94%, involving accessory muscle use and seemingly in respiratory distress. Blood pressure is soft. Given above mentioned respiratory symptoms and presentation along th age will send pt to [facility] ER for further evaluation and treatment. Respiratory distress determined by examination 0 10/12/2024 Assessment & Plan (10/12/2024 1:41 PM EST): Pt is tachypneic, hypoxic with O2 SAT 94%, involving accessory muscle use and appears to be in acute respiratory distress. Will send to [facility] ER for further evaluation and treatment. Encounters * This document contains information received from the source organization and may not represent a complete record from that organization. Date Type Department Care Team Description 01/21/2025 Orders Only [facility] External Provider, [facility] 01/17/2025 Refill [facility] [address] [place] [phone] Name, MD Mehran 12/24/2024 11:00 AM EDT Office Visit [address] [address] Mehran Edward MD Suspected chronic obstructive pulmonary disease based on initial evaluation ([facility]) (Primary Dx); Hemoptysis; Chronic cough; Chronic midline low back pain, unspecified whether sciatica present; Depression with anxiety; Encounter for immunization 12/24/2024 Travel 12/23/2024 Telephone [facility] [address] [place] [phone] Luigi Rangel MA chartprep 12/01/[address] [address] Mehran Edward MD Results 12/01/[address] [address] Mehran Edward MD 11/29/[address] [address] Mehran Edward MD 11/26/2024 9:30 AM EDT Office Visit [address] [address] Mehran Edward MD Chronic cough (Primary Dx); Former smoker; Hemoptysis; Suspected chronic obstructive pulmonary disease based on initial evaluation ([facility]); Chronic midline low back pain, unspecified whether sciatica present; Blurred vision; Depression with anxiety; Tremors of nervous system; Screening for cholesterol level; Ear itching 11/26/2024 Travel 11/18/2024 Patient Outreach [facility] [address] [place], [place] [phone] Mehran Edward MD Pre-visit Planning (SDOH negative, Tobacco screening negative. [...] Description 03/23/2025 11:30 AM EDT Office Visit [facility] [address] [place] [address] Name, MD Mehran [address] [place] [address] Health Maintenance Due Date Last Done Comments CT Colonography 1950 Colonoscopy 1950 Colorectal Cancer Screening 1950 FIT DNA/Cologuard 1950 FIT 1950 FOBT 1950 Sigmoidoscopy 1950 Hepatitis C Screening 1968 Zoster Vaccines (1 of 2) 2000 RSV Patients and Patients Aged 60 years or older (1 - Risk 60-74 years 1-dose series) 2010 COVID-19 Vaccine (2023-2 5 season) 2024 Alcohol/Substance Use Screening 11/26/2025 [...] Procedure Name Priority Date/Time Associated Diagnosis Comments APTT Routine 01/21/2025 2:24 PM EDT PROTHROMBIN TIME-INR Routine 01/21/2025 2:24 PM EDT VENOUS BLOOD GAS Routine 01/21/2025 1:57 PM EDT HIGH SENSITIVITY TROPONIN I Routine 01/21/2025 1:50 PM EDT B TYPE NATRIURETIC PEPTIDE (BNP) Routine 01/21/2025 1:50 PM EDT HEPATIC FUNCTION PANEL Routine 1:47 PM EDT COMPREHENSIVE METABOLIC PANEL Routine 01/21/2025 1:47 PM EDT LACTIC ACID Routine 01/21/2025 1:46 PM EDT CBC WITH AUTO DIFFERENTIAL Routine 01/21/2025 1:46 PM EDT SARS COV2/INFLUENZA A/B AND RSV RNA QL NAAT Routine 01/21/2025 1:46 PM EDT XR CHEST 1 VIEW Routine 01/21/2025 1:20 PM EDT XR LUMBAR SPINE 2-3 VIEWS Routine 11/26/2024 2:05 PM EDT Chronic midline low back pain, unspecified whether sciatica present LIPID PANEL, STANDARD Routine 11/26/2024 10:56 AM EDT Screening for cholesterol level T-SPOT(R).TB Routine 11/26/2024 10:56 AM EDT Chronic cough Hemoptysis from Last 3 Months Results * Partial Thromboplastin Time, Activated (APTT) (01/21/2025 2:24 PM EDT) Partial Thromboplastin Time 33.4 26.0 - 36.8 SEC [facility] Comment:For information rega rding the monitoring of direct thrombininhibitors, please refer to Pharmacy. 01/21/2025 2:24 PM EDT 01/21/2025 2:26 PM EDT Generic External Data Provider LAB BLOOD ORDERAB LES Final Result Performing Organization Address [facility] Co de Phone Number [facility] [address] [place] [phone] * (ABNORMAL) Prothrombin Time-INR (01/21/2025 2:24 PM EDT) Prothrombin Time 14.1(H) 10.9 - 12.4 SEC [facility] INTERNATIONAL NORM RATIO 1.2(H) 0.9 - 1.1 [facility] Comment:INTERNATIONAL NORMAL IZED RATIO (INR) REFERENCE RANGES Reference RangeFor patients not on anticoagulant therapy: 0.9 - 1.1INR ranges for oral anticoagulanttherapy:For prevention and treatment of venous thrombosis and pulmonary embolism: 2.0 - 3.0For acute myocardial infarction with aspirin therapy: 2.0 - 3.0For acute myocardial infarction without aspirin therapy: 3.0 - 4.0For patients with mechanical prosthetic heart valves: 2.5 - 3.5 01/21/2025 2:24 PM EDT 01/21/2025 2:26 PM EDT Generic External Data Provider LAB BLOOD ORDERAB LES Final Result Performing Organization Address [facility] Co de Phone Number [facility] [address] [place] [phone] * (ABNORMAL) VENOUS BLOOD GAS (01/21/2025 1:57 PM EDT) VBG pH 7.47(H) 7.32 - 7.43 [facility] Comment:METER #: [id number] additional_comment: Cb tree VBG PCO2 33 mmHg [facility] Comment:METER #: [id number] additional_comment: Minh leavitt VBG PO2 63 mmHg [facility] Comment:METER #: [id number] additional_comment: Minh leavitt VBG Base Excess 2.0 mmol/L [facility] Comment:METER #: [id number] additional_comment: Minh MCPHERSONG HCO3 24 22 - 26 mmol/L [facility] Comment:METER #: [id number] additional_comment: Minh leavitt O2 Sat, Mitch 93.0 % [facility] Comment:METER #: [id number] additional_comment: Minh leavitt 01/21/2025 1:57 PM EDT 01/21/2025 2:00 PM EDT Generic External Data Provider LAB BLOOD ORDERAB LES Final Result Performing Organization Address [facility] Co de Phone Number [facility] [address] [place] [phone] * High Sensitivity Troponin I (01/21/2025 1:50 PM EDT) [facility] TROPONIN I HIGH SENSITIVITY <2.7 <3.5 - 35.0 ng/L [facility] Comment:The Patrick high sens itivity Troponin-I results should beused in conjunction with other diagnostic information suchas ECG, clinical observations and information, and patientsymptoms to aid in the diagnosis of [place]. 01/21/2025 1:50 PM EDT 01/21/2025 1:55 PM EDT us Generic External Data Provider LAB BLOOD ORDERAB LES Final Result Performing Organization Address [facility] Co de Phone Number [facility] [address] [place] [phone] * B Type Natriuretic Peptide (BNP) (01/21/2025 1:50 PM EDT) [facility] B Type Natriuretic Peptide 11 <100 pg/mL [facility] 01/21/2025 1:50 PM EDT 01/21/2025 1:55 PM EDT us Generic External Data Provider LAB BLOOD ORDERAB LES Final Result Performing Organization Address City/[facility]/ZIP Co de Phone Number [facility] [address] [place] [phone] * Hepatic Function Panel (01/21/2025 1:47 PM EDT) Bilirubin, Direct 0.3 0.0 - 0.5 mg/dL [facility] 01/21/2025 1:47 PM EDT 01/21/2025 1:55 PM EDT Generic External Data Provider LAB BLOOD ORDERAB LES Final Result Performing Organization Address [facility] de Phone Number [facility] [address] [place] [phone] * (ABNORMAL) Comprehensive Metabolic Panel (01/21/2025 1:47 PM EDT) Sodium 130(L) 135 - 145 mmol/L [facility] Potassium 3.7 3.3 - 5.1 mmol/L [facility] Chloride 98 96 - 108 mmol/L [facility] Carbon Dioxide 24 22 - 29 mmol/L [facility] Anion Gap 12 12 - 20 [facility] Urea Nitrogen (BUN) 13 9 - 16 mg/dL [facility] Creatinine, Serum 0.69 0.5 - 1.4 mg/dL [facility] Creatinine Clr Calc Pharmacy 81.7 [facility] Comment:eGFR (calculated fro m the MDRD study equation) and eCrCl(calculated from the Cockcroft-Gault equation) are based ondifferent parameters and may not yield comparable results.If eCrCl result is absurd, please check patient'sheight/weight. Estimated Glomerular Filt Rate >60 [facility] Comment:Chronic Kidney Disea se: Estimated GFR < 60 mL/min/[id number] Kidney Disease: Estimated GFR < 15 mL/min/1.73m2 Glucose 152(H) 60 - 115 mg/dL [facility] Calcium 9.3 8.4 - 10.2 mg/dL [facility] Bilirubin, Total 0.9 0.0 - 1.0 mg/dL [facility] Aspartate Amino Transferase 20 5 - 37 U/L [facility] Alanine Aminotransferase 19 0 - 40 U/L [facility] Total Protein 7.6 6.5 - 8.0 g/dL [facility] Albumin Level 4.1 3.5 - 5.0 g/dL [facility] Alkaline Phosphatase 66 39 - 117 U/L [facility] 01/21/2025 1:47 PM EDT 01/21/2025 1:55 PM EDT us Generic External Data Provider LAB BLOOD ORDERAB LES Final Result [facility] [address] [place] [phone] * SARS-CoV-2 RNA, Influenza A/B, and RSV RNA, Ql NAAT (01/21/2025 1:46 PM EDT) Influenza A PCR NEGATIVE Negative [facility] Influenza B PCR NEGATIVE Negative [facility] Resp Syncy Virus RNA Qual PCR NEGATIVE Negative [facility] SARS COV2 PCR NEGATIVE Negative [facility] Comment:All test results mus t be correlated with clinical findings.Negative results do not preclude SARS-CoV2, influenza Avirus, influenza B virus and/or RSV infectionand should not be used as the sole basis for treatment orother patient management decisions. Negative results must becombined with clinical observations, patient history, andepidemiological information.This test has not been evaluated for monitoring treatment ofinfection.This test has been authorized by the FDA under an EmergencyUse Authorization (EUA) for use by authorized laboratories.Testing performed on the [employer] GeneXpert utilizingreal-time RT-PCR.All SARS CoV2 and positive influenza A/B results arereported to [facility]. 01/21/2025 1:46 PM EDT 01/21/2025 1:56 PM EDT us Generic External Data Provider LAB MICROBIOLOGY - GENERAL ORDERABLES Final Result [facility] [address] [place] [phone] * (ABNORMAL) CBC auto differential (01/21/2025 1:46 PM EDT) White Blood Count 14.3(H) 4.8 - 10.8 X10*3/uL [facility] Red Blood Count 4.53(L) 4.60 - 5.80 X10*6/uL [facility] Hemoglobin 13.3(L) 14.0 - 18.0 g/dl [facility] Hematocrit 39.2(L) 42.0 - 52.0 % [facility] Mean Corpuscular Volume 86.5 80.0 - 98.0 fL [facility] Mean Corpuscular Hemoglobin 29.4 27.0 - 33.0 pg [facility] Mean Corpuscular HGB Conc 33.9 31.0 - 36.0 g/dl [facility] Red Cell Distribution Width 12.9 11.0 - 16.0 % [facility] Platelet Count 163 160 - 400 X10*3/uL [facility] Mean Platelet Volume 9.6 9.4 - 12.4 fL [facility] Neutrophils Percent Auto 81.5(H) 45 - 73 % [facility] Imm Gran Pct Auto 0.6(H) 0.0 - 0.4 % [facility] Lymphocytes Percent Auto 11.1(L) 20 - 40 % [facility] Monocytes Percent Auto 6.4 2 - 11 % [facility] Eosinophils Percent Auto 0.1 0 - 4 % [facility] Basophils Percent Auto 0.3 0 - 2 % [facility] NRBC Pct Auto 0.0 0.0 - 0.2 /100WBC [facility] Neutrophils Absolute Auto 11.7(H) 2.0 - 8.3 x10*3/uL [facility] Imm Gran Abs Auto 0.08(H) 0.00 - 0.03 X10*3/uL [facility] Lymphocytes Absolute Auto 1.6 1.2 - 4.9 X10*3/uL [facility] Monocytes Absolute Auto 0.9 0.1 - 1.2 X10*3/uL [facility] Eosinophils Absolute Auto 0.0 0.0 - 0.4 X10*3/uL [facility] Basophils Absolute Auto 0.0 0.0 - 0.2 X10*3/uL [facility] NRBC Abs Auto 0.000 0.0 - 0.012 X10*3/uL [facility] 01/21/2025 1:46 PM EDT 01/21/2025 1:55 PM EDT Generic External Data Provider LAB BLOOD ORDERAB LES Final Result Performing Organization Address [facility]/ZIP Co de Phone Number [facility] [address] [place] [phone] Lactic Acid (01/21/2025 1:46 PM EDT) Lactic Acid 0.9 0.5 - 2.0 mmol/L [facility] 01/21/2025 1:46 PM EDT 01/21/2025 2:12 PM EDT Generic External Data Provider LAB BLOOD ORDERAB LES Final Result Performing Organization Address [facility]/ZIP Co de Phone Number [facility] [address] [place] [phone] * XR Chest 1 View (01/21/2025 1:20 PM EDT) Anatomical Region Laterality Modality Chest Radiographic Pebbles ging 01/21/2025 1:20 PM EDT Narrative 01/21/2025 1:43 PM EDT ? [facility] ?[address] ?[place] [address] ?XRay Report ? Signed ? Patient: Younes,Abbas ?MR#: [id number] ? : 1950 ?Acct:[id number] ? Age/Sex: 74 / M ?ADM Date: 01/21/25 ? Loc: HO.ED ? Attending Dr: ? Ordering Physician: Rolando William MD ?? Date of Service: 01/21/25 ?? Procedure(s): XR chest 1V ?? Accession Number(s): [id number] ? cc: Mehran Edward MD; Rolando William [...] ??Kolby Chowdhury MD ??01/21/2025 01:41 PM EDT ? Dictated By: ?Kolby Chowdhury MD ? Signed By: ?<Electronically signed by Kolby Chowdhury MD in OV> ?01/21/25 1341 ? DD/ 1320 ? TD/TT: 01/21/25 1330 ? Playground Attendant: ? Procedure Note Karthik Aguilera - 01/21/[address] [address] XRay Report Signed Patient: Tory WestAgustín#: [id number] : 1Acct:[id number] Age/Sex: 74 / MADM Date: 01/21/25 Loc: HO.ED Attending Dr: Ordering Physician: Rolando William MD Date of Service: 01/21/25 Procedure(s): XR chest 1V Accession Number(s): [id number] cc: Mehran Edward MD; Rolando William MD [...] 01/21/25 1341 DD/ 1320 TD/TT: 01/21/25 1330 Playground Attendant: [facility] External Provider IMG XR PROCEDURES Final Result * XR Lumbar Spine 2-3 Views (11/26/2024 2:05 PM EDT) Anatomical Region Laterality Modality Spine, L-spine Radiographic Pebbles ging 11/26/2024 2:05 PM EDT Narrative 11/26/2024 2:39 PM EDT ? [facility] ?[address] ?[place] [address] ?XRay Report ? Signed ? Patient: Younes,Abbas ?MR#: [id number] ? : 1950 ?Acct:[id number] ? Age/Sex: 74 / M ?ADM Date: 03/14/25 ? Loc: HO.HHCL ? Attending Dr: Mehran Edward MD ? Ordering Physician: Wagner,Mehran NAJERA ?? Date of Service: 11/26/24 ?? Procedure(s): XR lumbar spine 2-3V ?? Accession Number(s): [id number] ? cc: Wagner,Mehran NAJERA ? EXAMINATION: ?? [...] DD/ 1405 ? TD/TT: 11/26/24 1420 ? Playground Attendant: ? Procedure Note Karthik Aguilera - 11/30/[address] [address] XRay Report Signed Patient: Tory WestAgustín#: [id number] : 1Acct:[id number] Age/Sex: 74 / MADM Date: 11/26/24 Loc: HO.HHCL Attending Dr: Mehran Edward MD Ordering Physician: Mehran Edward MD Date of Service: 11/26/24 Procedure(s): XR lumbar spine 2-3V Accession Number(s): [id number] cc: Mehran Edward MD EXAMINATION: XR LUMBOSACRAL [...] 11/26/24 1435 DD/ 1405 TD/TT: 11/26/24 1420 Playground Attendant: Mehran Edward MD IM XR PROCEDURES Edited Result - Final * T-SPOT??.TB (11/26/2024 10:56 AM EDT) [facility] T Spot TB Negative Negative [facility] Comment:A negative test resu lt [...] as aquantitative test. TS PANEL A 0 [facility] TS PANEL B 0 [facility] Negative Control Passed [facility] Positive Control Passed [facility] Comment:For additional infor paula, please refer tohttp://education.[employer]/faq/UVX367(This link is being provided for informational/educational purposes only.)THIS TEST WAS PERFORMED AT:[employer] [id number] [place] [id number] JI MD,PHD 11/26/2024 10:5 6 AM EDT 11/26/2024 1:32 PM EDT us Mehran Name LAB BLOOD ORDERABLES Final Resul t [facility] [address] [place] [phone] * (ABNORMAL) Lipid Panel, Standard (11/26/2024 10:56 AM EDT) Triglycerides 98 <150 mg/dL [facility] Comment:Desirable Triglyceri de: less than 150 mg/dLBorderline High Triglyceride 150-199 mg/dLHigh Triglyceride: 200-499 mg/dLVery High Triglyceride: greater than or equal to 5OO mg/dL Cholesterol 208(H) <200 mg/dL [facility] Comment:Desirable Cholestero l: less than 200 mg/dLBorderline High Cholesterol: 200-239 mg/dLHigh Cholesterol: greater than 239 mg/dL LDL Cholesterol Calculated 150(H) <100 mg/dL [facility] Comment:Desirable LDL: less than 100 mg/dLNear Optimal/Above Optimal LDL: 110- 129 mg/dLBorderline High LDL: 130-159 mg/dLHigh LDL: 160-189 mg/dLVery High LDL: greater than or equal to 190 mg/dL HDL Cholesterol 39(L) >40 mg/dL [facility] Comment:Desirable HDL: great er than 40 mg/dL Note: This HDL assay may give artificially low results in patients with liver disease. Blood Venous blood specimen / Unknown 11/26/2024 10:56 AM EDT 11/26/2024 1:32 PM EDT us Mehran Edward MD LAB BLOOD ORDERABLES Final Resul t [facility] [address] [place] [phone] from Last 3 Months Insurance [facility] [facility] [employer] Care Teams Licensing Coordinator Relationship Specialty Start Date End Date Name, MD Mehran [address] [place] [phone] PCP - General Internal Medicine 11/26/24
--- OUTSIDE RECORDS SUMMARY | 2025-01-24 10:30 | XMS_ITS | Encounter Summary ---
Author Organization [employer] Address [address] [place] [address] Care Team Providers Care Electronics Engineering Professor Name Role Phone Name, Mehran NAJERA Primary Care Provider [phone] Encounter Details Date Type Department Care Team (Late st Contact Info) Description 01/21/2025 Orders Only [facility] External Provider, [facility] Social History Tobacco Use Types Packs/Day [...] Description 03/23/2025 11:30 AM EDT Office Visit [facility] [address] [place] [address] Name, MD Mehran [address] [place] [address] documented as of this encounter Procedures Procedure [...] METABOLIC PANEL Routine 01/21/2025 1:47 PM EDT SARS COV2/INFLUENZA A/B AND RSV RNA QL NAAT Routine 01/21/2025 1:46 PM EDT CBC WITH AUTO DIFFERENTIAL Routine 01/21/2025 1:46 PM EDT LACTIC ACID Routine 01/21/2025 1:46 PM EDT XR CHEST 1 VIEW Routine 01/21/2025 1:20 PM EDT documented in this encounter Results * Partial Thromboplastin Time, Activated (APTT) (01/21/2025 2:24 PM EDT) [facility] Partial Thromboplastin Time 33.4 26.0 - 36.8 SEC [facility] Comment:For information rega rding the monitoring of direct thrombininhibitors, please refer to Pharmacy. 01/21/2025 2:24 PM EDT 01/21/2025 2:26 PM EDT Generic External Data Provider LAB BLOOD ORDERAB LES Final Result Performing Organization Address [facility] Co de Phone Number [facility] [address] [place] [address] [phone] * (ABNORMAL) Prothrombin Time-INR (01/21/2025 2:24 PM EDT) [facility] Prothrombin Time 14.1(H) 10.9 - 12.4 SEC [facility] INTERNATIONAL NORM RATIO 1.2(H) 0.9 - 1.1 [facility] Comment:INTERNATIONAL NORMAL IZED RATIO (INR) [...] ORDERAB LES Final Result Performing Organization Address [facility] de Phone Number [facility] [address] [place] [address] [phone] * (ABNORMAL) VENOUS BLOOD GAS (01/21/2025 1:57 PM EDT) [facility] VBG pH 7.47(H) 7.32 - 7.43 [facility] Comment:METER #: [id number] additional_comment: Minh leavitt VBG PCO2 33 mmHg [facility] Comment:METER #: [id number] additional_comment: Minh leavitt VBG PO2 63 mmHg [facility] Comment:METER #: [id number] additional_comment: Minh leavitt VBG Base Excess 2.0 mmol/L [facility] Comment:METER #: [id number] additional_comment: Minh leavitt VBG HCO3 24 22 - 26 mmol/L [facility] Comment:METER #: [id number] additional_comment: Minh leavitt O2 Sat, Mitch 93.0 % [facility] Comment:METER #: [id number] additional_comment: Minh leavitt 01/21/2025 1:57 PM EDT 01/21/2025 2:00 PM EDT us Generic External Data Provider LAB BLOOD ORDERAB LES Final Result Performing Organization Address [facility] Co de Phone Number [facility] [address] [place] [address] [phone] * High Sensitivity Troponin I (01/21/2025 1:50 PM EDT) [facility] TROPONIN I HIGH SENSITIVITY <2.7 <3.5 - 35.0 ng/L [facility] Comment:The Patrick high sens itivity Troponin-I results should beused in conjunction with other diagnostic information suchas ECG, clinical observations and information, and patientsymptoms to aid in the diagnosis of NE. 01/21/2025 1:50 PM EDT 01/21/2025 1:55 PM EDT us Generic External Data Provider LAB BLOOD ORDERAB LES Final Result Performing Organization Address [facility]/ZIP Co de Phone Number [facility] [address] [place] [phone] * B Type Natriuretic Peptide (BNP) (01/21/2025 1:50 PM EDT) [facility] B Type Natriuretic Peptide 11 <100 pg/mL [facility] 01/21/2025 1:50 PM EDT 01/21/2025 1:55 PM EDT Generic External Data Provider LAB BLOOD ORDERAB LES Final Result Performing Organization Address City/[facility]/ZIP Co de Phone Number [facility] [address] [place] [address] [phone] * Hepatic Function Panel (01/21/2025 1:47 PM EDT) [facility] Bilirubin, Direct 0.3 0.0 - 0.5 mg/dL [facility] 01/21/2025 1:47 PM EDT 01/21/2025 1:55 PM EDT Generic External Data Provider LAB BLOOD ORDERAB LES Final Result Performing Organization Address City/[facility]/ZIP Co de Phone Number [facility] [address] [place] [address] [phone] * (ABNORMAL) Comprehensive Metabolic Panel (01/21/2025 1:47 PM EDT) [facility] Sodium 130(L) 135 - 145 mmol/L [facility] Potassium 3.7 3.3 - 5.1 mmol/L [facility] Chloride 98 96 - 108 mmol/L [facility] Carbon Dioxide 24 22 - 29 mmol/L [facility] Anion Gap 12 12 - 20 [facility] Urea Nitrogen (BUN) 13 9 - 16 mg/dL [facility] Creatinine, Serum 0.69 0.5 - 1.4 mg/dL [facility] Creatinine Clr Calc Pharmacy 81.7 [facility] Comment:eGFR (calculated fro m the MDRD study equation) and eCrCl(calculated from the Cockcroft-Gault equation) are based ondifferent parameters and may not yield comparable results.If eCrCl result is absurd, please check patient'sheight/weight. Estimated Glomerular Filt Rate >60 [facility] Comment:Chronic Kidney Disea se: Estimated GFR < 60 mL/min/1.37g2Vdnpmz Kidney Disease: Estimated GFR < 15 mL/min/1.73m2 Glucose 152(H) 60 - 115 mg/dL [facility] Calcium 9.3 8.4 - 10.2 mg/dL [facility] Bilirubin, Total 0.9 0.0 - 1.0 mg/dL [facility] Aspartate Amino Transferase 20 5 - 37 U/L [facility] Alanine Aminotransferase 19 0 - 40 U/L [facility] Total Protein 7.6 6.5 - 8.0 g/dL [facility] Albumin Level 4.1 3.5 - 5.0 g/dL [facility] Alkaline Phosphatase 66 39 - 117 U/L [facility] 01/21/2025 1:47 PM EDT 01/21/2025 1:55 PM EDT us Generic External Data Provider LAB BLOOD ORDERAB LES Final Result [facility] [address] [place] [address] [phone] * SARS-CoV-2 RNA, Influenza A/B, and RSV RNA, Ql NAAT (01/21/2025 1:46 PM EDT) Influenza A PCR NEGATIVE Negative [facility] Influenza B PCR NEGATIVE Negative [facility] Resp Syncy Virus RNA Qual PCR NEGATIVE Negative [facility] SARS COV2 PCR NEGATIVE Negative [facility] Comment:All test results mus t [...] use by authorized laboratories.Testing performed on the [employer] GeneXpert utilizingreal-time RT-PCR.All SARS CoV2 and positive influenza A/B results arereported to [facility]. 01/21/2025 1:46 PM EDT 01/21/2025 1:56 PM EDT Generic External Data Provider LAB MICROBIOLOGY - GENERAL ORDERABLES Final Result Performing Organization Address [facility]/ZIP Co de Phone Number [facility] [address] [place] [address] [phone] * Lactic Acid (01/21/2025 1:46 PM EDT) [facility] Lactic Acid 0.9 0.5 - 2.0 mmol/L [facility] 01/21/2025 1:46 PM EDT 01/21/2025 2:12 PM EDT Generic External Data Provider LAB BLOOD ORDERAB LES Final Result Performing Organization Address [facility]/ZIP Co de Phone Number [facility] [address] [place] [address] [phone] * (ABNORMAL) CBC auto differential (01/21/2025 1:46 PM EDT) White Blood Count 14.3(H) 4.8 - 10.8 X10*3/uL [facility] Red Blood Count 4.53(L) 4.60 - 5.80 X10*6/uL [facility] Hemoglobin 13.3(L) 14.0 - 18.0 g/dl [facility] Hematocrit 39.2(L) 42.0 - 52.0 % [facility] Mean Corpuscular Volume 86.5 80.0 - 98.0 fL [facility] Mean Corpuscular Hemoglobin 29.4 27.0 - 33.0 pg [facility] Mean Corpuscular HGB Conc 33.9 31.0 - 36.0 g/dl [facility] Red Cell Distribution Width 12.9 11.0 - 16.0 % [facility] Platelet Count 163 160 - 400 X10*3/uL [facility] Mean Platelet Volume 9.6 9.4 - 12.4 fL [facility] Neutrophils Percent Auto 81.5(H) 45 - 73 % [facility] Imm Gran Pct Auto 0.6(H) 0.0 - 0.4 % [facility] Lymphocytes Percent Auto 11.1(L) 20 - 40 % [facility] Monocytes Percent Auto 6.4 2 - 11 % [facility] Eosinophils Percent Auto 0.1 0 - 4 % [facility] Basophils Percent Auto 0.3 0 - 2 % [facility] NRBC Pct Auto 0.0 0.0 - 0.2 /100WBC [facility] Neutrophils Absolute Auto 11.7(H) 2.0 - 8.3 x10*3/uL [facility] Imm Gran Abs Auto 0.08(H) 0.00 - 0.03 X10*3/uL [facility] Lymphocytes Absolute Auto 1.6 1.2 - 4.9 X10*3/uL [facility] Monocytes Absolute Auto 0.9 0.1 - 1.2 X10*3/uL [facility] Eosinophils Absolute Auto 0.0 0.0 - 0.4 X10*3/uL [facility] Basophils Absolute Auto 0.0 0.0 - 0.2 X10*3/uL [facility] NRBC Abs Auto 0.000 0.0 - 0.012 X10*3/uL [facility] 01/21/2025 1:46 PM EDT 01/21/2025 1:55 PM EDT us Generic External Data Provider LAB BLOOD ORDERAB LES Final Result [facility] [address] [place] [phone] * XR Chest 1 View (01/21/2025 1:20 PM EDT) Anatomical Region Laterality Modality Chest Radiographic Pebbles ging 01/21/2025 1:20 PM EDT Narrative 01/21/2025 1:43 PM EDT ? [facility] ?[address] ?[place] [address] ?XRay Report ? Signed ? Patient: Younes,Abbas ?MR#: [id number] ? : 1950 ?Acct:[id number] ? Age/Sex: 74 / M ?ADM Date: 01/21/25 ? Loc: HO.ED ? Attending Dr: ? Ordering Physician: Rolando William MD ?? Date of Service: 01/21/25 ?? Procedure(s): XR chest 1V ?? Accession Number(s): [id number] ? cc: Mehran Edward MD; Rolando William [...] DD/ 1320 ? TD/TT: 01/21/25 1330 ? Diagnostics Sales Developer: ? Procedure Note Karthik Aguilera - 01/21/2025 [facility] [address] [place] [address] XRay Report Signed Patient: Annabella West#: [id number] : 1950cct:[id number] Age/Sex: 74 / MADM Date: 01/21/25 Loc: HO.ED Attending Dr: Ordering Physician: Rolando William MD Date of Service: 01/21/25 Procedure(s): XR chest 1V Accession Number(s): [id number] cc: Wagner,Mehran NAJERA; Rolando William MD EXAMINATION: XR CHEST [...] 01/21/25 1341 DD/ 1320 TD/TT: 01/21/25 1330 Diagnostics Sales Developer: [facility] External Provider IMG XR PROCEDURES Final Result documented in this encounter Visit Diagnoses Not on filedocumented in this encounter Additional Health Concerns Assessment Noted Time PHQ-9 Depression Total Score: 27 11/26/ 025 10:30 AM EDT documented as of this encounter Care Teams Electronics Engineering Professor Relationship Specialty Start Date End Date Name, MD Mehran [address] [place] [address] PCP - General Internal Medicine 11/26/24 documented as of this encounter
== END 2025-01-24 10:05 | disposition home or self-care (01) ==
LOC: HO.HMGCX 10:04
PROVIDERS: PCP Internal Medicine Geriatric Medicine; Visit Provider Registered Nurse Emergency
DX: M43.16 Spondylolisthesis, lumbar region (principal); M47.816 Spondylosis without myelopathy or radiculopathy, lumbar region; J18.9 Pneumonia, unspecified organism
CPT/HCPCS: 71046; 72120

== ENCOUNTER → 2025-01-24 10:16 | Outpatient (BNV) | payer MEDICAID, SELFPAY | PROVIDERS: PCP Internal Medicine Geriatric Medicine; Visit Provider Radiology Diagnostic Radiology | DX: M43.16 Spondylolisthesis, lumbar region (principal); Z87.01 Personal history of pneumonia (recurrent) | CPT/HCPCS: 71046; 72120 ==

== ENCOUNTER 2025-02-04 09:25 | Outpatient (AMB) | payer MEDICAID, SELFPAY ==
--- OUTSIDE RECORDS SUMMARY | 2025-02-04 09:36 | XMS_ITS | Clinical Summary ---
Author Organization [facility] Address [address] [place] [phone] Phone Care Team Providers Care Truck Caterer Name Role Phone Physician, No Pcp Primary [...] to complete this topic Insurance [place] Care Teams Truck Caterer Relationship Specialty Start Date End Date Physician, No Pcp PCP - General 09/26/24
[2025-02-04 09:40] VITALS: BMI 29.3
--- NOTE | 2025-02-04 09:40 | HO.SPINEOV ---
Vital Signs 02/04/25 09:40 Height 5 ft 5 in Weight 176 lb BMI 29.3 Intake Visit Reasons: Spinal stenosis Intake Note: Mr. West is here today c/o Low back pain that radiates down to both legs causing numbness, tingling and sharp stabbing pain. Information Services Assistant Required: Yes Information Services Assistant Name: Tablet Allergies No Known Allergies Allergy (Verified 02/04/25 09:42) Physical Exam Vital Signs: BMI result Body Mass Index 29.3 Assessment & Plan Assessment & Plan (1) Cervical disc disorder: Code(s): M50.90 - Cervical disc disorder, unspecified, unspecified cervical region Category: Medical (2) Spondylolisthesis, lumbar region: Code(s): M43.16 - Spondylolisthesis, lumbar region Category: Medical Plan Dear Jazlyn, Thank you for referring Mr West to our office today. This visit was done with help of [place] oil spot washer [id number]. He is a 74-year-old [place] gentleman who has had 30 years of chronic back pain. Generally, through the years in [place] he was treated with medications and cortisone injections and this made things manageable. Since coming to this country, the pain has persisted, he has not had any recent injections. He was started on meloxicam by who is his primary care physician. This seems to have helped a little bit. He has a tremendous amount of pain in his back when he stands and it shoots down the front of his legs. He also feels like his legs will not hold him up. He also reports numbness of his arms and some gait imbalance. He had an MRI done at [facility] in addition to x-rays done at [place] and this shows a grade 2 spondylolisthesis secondary to pars defect at L4-5 and he was referred to us for an evaluation. PMH: He reports minimal medical history, he does have history of asthma and takes 2 inhalers for this, high cholesterol, back pain, depression. He has never had surgery. His daughter who is here with him today confirms that he has never had any history of coronary disease, kidney disease, diabetes etc.. He does however have dyspnea on exertion after walking short distances. He is going for cardiology evaluation at the end of the month. Social hx: He used to smoke but quit 20 years ago, does not drink use any recreational drugs Medications: Meloxicam, sertraline, Lipitor, albuterol, Tylenol Allergies: None Physical exam: He is able to stand up out of a chair on his own but he does so with a cane, he walks very slowly with a flexed posture. Reports pain in the center of his back. He has a lot of difficulty with motor examination of the lower extremity secondary to pain. Upper extremity examination reveals full strength, lower extremity again difficult secondary to pain but I do not sense any focal weakness with the exception of his left iliopsoas which was 3/5. He is diffusely hyperreflexic more so on the left side with bilateral Hobbs's sign. Imaging review: Lumbar MRI done at [facility] and lumbar x-ray done at [facility] reviewed, these show pars defect at L4 with grade 2 spondylolisthesis with [id number] endplate at L4-5 disc space. There severe bilateral neuroforaminal narrowing. Impression: 74-year-old male with a grade 2 spondylolisthesis at L4-5 secondary to pars defects, chronic back pain for 30 years radiating down into his legs. He has treated this through the years with cortisone injections and medications. He has recently been started on meloxicam which is helping some. I explained to the patient and his daughter with the help of an oil spot washer that he has a significant mechanical instability in his back and will ultimately end up needing surgery. I do not think the injections are going to have any long wall mining machine helper affect but if he is scared of surgery and does not want to proceed, certainly these are an option until he decides. I reviewed his imaging with Dr. Neal and he would be a good candidate for an oblique lumbar interbody fusion. In the interim though, he is also showing signs of cervical myelopathy, reports numbness of his hands and has diffuse hyperreflexia. Given his congenitally narrow spinal canal I suspect he has some compression in his spinal cord in the cervical area so I will order an MRI to evaluate that and see him back once it is completed. Thank you for allowing us to care for your patient. The total time spent with this visit with this patient was 45 minutes reviewing history, physical exam, lumbar imaging review, and implementation of treatment plan or further diagnostic testing Davidson Neal MD,PhD [facility] Orders: Orders MR cervical spine wo con Today M50.90 - Cervical disc disorder, unspecified, unspecified cervical region Coding Level of Care Code New Pt Level 4 (15477) Diagnoses Cervical disc disorder M50.90 Spondylolisthesis, lumbar region M43.16
== END 2025-02-04 10:23 | disposition home or self-care (01) ==
PROVIDERS: PCP Internal Medicine Geriatric Medicine; Referring Provider Registered Nurse Emergency; Visit Provider Physician Assistant
DX: M50.90 Cervical disc disorder, unspecified, unspecified cervical region (principal); M43.16 Spondylolisthesis, lumbar region
CPT/HCPCS: 99204

== ENCOUNTER → 2025-02-04 09:25 | Outpatient (BNVA) | payer MEDICAID, SELFPAY | PROVIDERS: PCP Internal Medicine Geriatric Medicine; Referring Provider Registered Nurse Emergency; Visit Provider Physician Assistant | DX: M50.90 Cervical disc disorder, unspecified, unspecified cervical region (principal); M43.16 Spondylolisthesis, lumbar region | CPT/HCPCS: 99212 ==

== ENCOUNTER 2025-02-11 10:27 | Outpatient (AMB) | payer MEDICAID, SELFPAY ==
[2025-02-11 10:30] VITALS: BP 104/56; PULSE 68; O2SAT 95; BMI 29.8
--- NOTE | 2025-02-11 10:30 | A.OFFVIS_ITS ---
Vital Signs 02/11/25 10:30 Height 5 ft 5 in Weight 179 lb BMI 29.8 BP 104/56 L Blood Pressure Location Rt brachial Position Sitting Pulse 68 Pulse Source Pulse Oximeter Pulse Oximetry (%) 95 Oxygen Delivery Method Room Air Intake Visit Reasons: COPD Allergies No Known Allergies Allergy (Verified 02/11/25 10:36) HPI HPI COPD: Details: Joie is a pleasant 74 year old male, former 60+ smoker, quit 7 years ago with underlying COPD. [place] [facility] [place] 01[place]21-[place]22[place]25 for CAP. CXR opacities of RLL. He was treated with ceftriaxone and discharged with doxycycline and prednisone. Since discharge he reports moderate improvement in productive cough continues with dyspnea on exertion and intermittent wheezing. Denies fevers, chills or chest congestion. He has been using Advair 1 inhalation QD and recently started on Spiriva last month. He also has albuterol MDI which he uses BID. He denies seasonal allergies. He denies h/o recurrent respiratory infections, although has had pneumonia on a few occasions. He denies any occupational exposures. He reports brother, smoker, with respiratory issues. [facility] Medical History Suspected chronic obstructive pulmonary disease based on initial evaluation Anxiety Depression Social History (Updated 02/11/25 @ 10:36 by Katlein Domingo [facility]) Household Members: Children Housing: House Do you presently have visiting nurse or other home services: Yes Patient Tobacco Use Status: Former Tobacco user service: No Review of Systems Const Denies chills, Denies excessive sweating, Denies fever(s), Denies headache(s) and Denies night sweats Eyes Denies dry eyes, Denies irritation and Denies itchy eyes ENT Reports Normal hearing present, Denies headache(s), Denies nasal congestion, Denies nasal discharge, Denies post nasal drip and Denies sore throat Card Denies chest pain, Denies chest pain at rest, Denies chest pain with activity, Denies claudication, Denies leg edema, Denies orthopnea and Denies paroxysmal nocturnal dyspnea Resp Denies chest congestion, Denies excessive phlegm production, Denies pain on inspiration, Denies pain with cough and Denies stridor Musc Denies myalgias Neuro Reports Normal hearing present and Denies headache(s) Endo Denies excessive sweating Juan Luis/Lymph Denies lymphadenopathy Aller/Immun Denies itchy eyes and Denies seasonal rhinorrhea Physical Exam Vital Signs: Last Vital Signs Pulse 68 02/11/25 10:30 BP 104/56 L 02/11/25 10:30 Pulse Ox 95 02/11/25 10:30 Oxygen Delivery Method Room Air 02/11/25 10:30 BMI result Body Mass Index 29.8 Const General: cooperative, healthy appearing, comfortable, no acute distress, well developed and alert Nutritional Appearance: obese Orientation/consciousness: patient oriented x3 Limitations: no limitations HEENT Head: Yes normal to inspection, Yes normocephalic and Yes atraumatic Ears: hearing grossly normal bilaterally and external ears normal Eyes General: appearance normal, both eyes and all related structures Eyelids: Yes eyelids normal Sclerae: sclerae normal EOM: EOMs intact bilaterally Neck Neck: Yes normal visual inspection and Yes no lymphadenopathy Lymphatic: no lymphadenopathy noted Chest Chest palpation & inspection: normal inspection of the chest Resp Other: very diminished lung sounds, improved aeration with nebulizer Effort & Inspection: normal respiratory effort, able to speak in complete sentences, no audible wheezes, no cough, no stridor, not tachypneic, no tripod positioning and no use of accessory muscles Cardio Jugular venous distension: no JVD Rate: regular rate Rhythm: regular rhythm Skin Other: warm, dry General skin exam: no rashes or lesions noted Neuro General: patient oriented x3 Cranial nerves: Yes Normal hearing present Cognition (Neuro): normal cognition Gait exam (Neuro): Normal gait present Extrem General: Yes normal to inspection, Yes capillary refill normal, Yes no clubbing, cyanosis or edema and Yes no pedal edema Psych Appearance: grossly normal and well kempt Speech and movement: Normal speech and movement present and Clear speech present Affect: normal affect Attitude: cooperative Thought process: Normal thought process present Thought content: Normal thought content present Insight: Good insight present (Psych) Judgement: Good judgement present (Psych) Office Procedures Nebulizer Treatment Nebulizer Treatment 40647-Kpjpzksps/MDI RX initial, or Nebulizer Subsequent Treatment Office Meds ipratropium 0.5 mg-albuterol 3 mg (2.5 mg base)/3 mL nebulization soln Performing Provider: Brittney Rangel NP [place] [facility] [place] [facility] Administered by: Sarah Hodges LPN on 02/11/25 11:07 Dose Route Admin Location Dispensed Lot Number Expiration Date [facility] [employer] In[employer] 3 mL inhalation 3 mL [id number] 05/15/26 70810-759-81 [employer] Results Reviewed Results Reviewed: [address] [address] XRay Report Signed Patient: Joie West MR#: [id number] : 1950 Acct:[id number] Age/Sex: 74 / M ADM Date: 01/21/25 Loc: .ED Attending Dr: Ordering Physician: Rolando William MD Date of Service: 01/21/25 Procedure(s): XR chest 1V Accession Number(s): [id number] cc: Name,Mehran NAJERA; Rolando William MD~ EXAMINATION: XR CHEST 1 VIEW HISTORY: dyspnea COMPARISON: Comparison is made with the prior examination dated 10/04/2024. FINDINGS: A single AP portable view of the chest performed at 1:28 PM is submitted. The lungs remain hyperinflated with flattening of the hemidiaphragms, consistent with COPD. There are patchy opacities at the right lung base which may represent early pneumonia. The left lung is clear. There is no pleural effusion, pneumothorax, or pulmonary vascular congestion. The heart is normal in size. The bones are intact. XR/XR chest 1V IMPRESSION: COPD. Findings suggestive of early right basilar pneumonia. Follow-up is recommended. Electronically signed by: Kolby Chowdhury MD 01/21/2025 01:41 PM EDT Dictated By: Kolby Chowdhury MD Signed By: <Electronically signed by Kolby Chowdhury MD in OV> 01/21/25 1341 Assessment & Plan Assessment & Plan (1) COPD (chronic obstructive pulmonary disease): Code(s): J44.9 - Chronic obstructive pulmonary disease, unspecified Category: Medical (2) History of recent pneumonia: Code(s): Z87.01 - Personal history of pneumonia (recurrent) Category: Medical (3) Personal history of tobacco use: Code(s): Z87.891 - Personal history of nicotine dependence Category: Social Hx Plan Abbas presents for pulmonary evaluation with known history of COPD, unknown severity. Will send for PFT to further evaluate. Encouraged use of Advair 2 inhalation BID in addition to Spiriva and albuterol MDI. Patient responded well to nebulized therapy, will send nebulizer for home use as well as DuoNeb. Will send for chest CT given smoking history and to assess for resolution of recent PNA. All questions were answered and patient is in agreement of plan. Will follow up in 6-8 weeks or sooner if needed. Orders: Orders AMB Nebulizer Treatment Today J44.9 - Chronic obstructive pulmonary disease, unspecified PFT pulmonary function test Today J44.9 - Chronic obstructive pulmonary disease, unspecified CT chest wo IV con Today Z87.01 - Personal history of pneumonia (recurrent), Z87.891 - Personal history of nicotine dependence Medications: New tiotropium bromide (Spiriva with HandiHaler) puncture 1 cap using device; one dose = 2 inhalations 1 cap inhalation DAILY 60 inhalations 6RF fluticasone propion-salmeterol 230-21 mcg/actuation (Advair HFA) 2 puffs inhalation BID 12 grams 6RF ipratropium-albuterol 0.5 mg-3 mg(2.5 mg base)/3 mL 3 mL inhalation Q6H PRN 180 mL 3RF wheezing Coding Level of Care Code New Pt Level 4 (42341) Diagnoses COPD (chronic obstructive pulmonary disease) J44.9 History of recent pneumonia Z87.01 Personal history of tobacco use Z87.891 CPT Codes Nebulizer Treatment - Nebulizer Treatment, initial or subsequent: 49459- Nebulizer/MDI RX initial, or Nebulizer Subsequent Treatment ([id number])
--- OUTSIDE RECORDS SUMMARY | 2025-02-11 11:09 | XMS_ITS | Clinical Summary ---
Author Organization [facility] Address [address] [place] [phone] Phone Care Team Providers Care Coremaking Supervisor Name Role Phone Physician, No Pcp [...] to complete this topic Insurance MEDICAID - [place] Care Teams Coremaking Supervisor Relationship Specialty Start Date End Date Physician, No Pcp PCP - General 09/26/24
== END 2025-02-11 11:20 | disposition home or self-care (01) ==
LOC: HO.HPSW 10:29
PROVIDERS: PCP Internal Medicine Geriatric Medicine; Referring Provider Internal Medicine Geriatric Medicine; Visit Provider Nurse Practitioner Family
DX: J44.9 Chronic obstructive pulmonary disease, unspecified (principal); Z87.01 Personal history of pneumonia (recurrent); Z87.891 Personal history of nicotine dependence
CPT/HCPCS: 99204

== ENCOUNTER → 2025-02-11 10:27 | Outpatient (BNVA) | payer MEDICAID, SELFPAY | PROVIDERS: PCP Internal Medicine Geriatric Medicine; Referring Provider Internal Medicine Geriatric Medicine; Visit Provider Nurse Practitioner Family | DX: J44.9 Chronic obstructive pulmonary disease, unspecified (principal); Z87.01 Personal history of pneumonia (recurrent); Z87.891 Personal history of nicotine dependence; Z79.899 Other long term (current) drug therapy | CPT/HCPCS: 94640; 99212 ==

== ENCOUNTER 2025-02-12 18:12 | Outpatient (REF) | payer MEDICAID, SELFPAY ==
--- NOTE | ~2025-02-12 | MR_ITS ---
EXAMINATION: MR CERVICAL SPINE WITHOUT CONTRAST CLINICAL INFORMATION: Bilateral arm weakness, numbness, finger numbness and bilateral leg weakness. COMPARISON: None available. TECHNIQUE: MRI of the cervical spine was obtained using routine sequences without contrast. FINDINGS: There is reversal of cervical lordosis. The vertebral heights are maintained normal. There is grade 1 anterolisthesis C4 over C5, C5 over C6 and C7 over T1. Loss of C3-4, C4-5, C5-6 and C6-C7 disc heights are noted. There are moderate type I endplate changes at C3-4 disc level. Rest the bone marrow signal is normal. The craniovertebral junction is widely patent in spite of mild pannus formation. At C2-3 disc level there is no significant disc bulge, herniation or spinal stenosis. At C3-4 disc level there is posterior spondylosis/bulge complex effacing the ventral thecal sac and resulting in mild AP canal stenosis. The neural foramina are bilaterally narrowed from underlying mild uncovertebral and facet joint hypertrophy. At C4-5 disc level there is a central disc osteophyte/bulge complex effacing the ventral thecal sac and indenting the ventral cord resulting in mild to moderate AP canal stenosis. Right neural foramina is minimally narrowed from uncovertebral hypertrophic changes. At C5-6 disc level there is moderate AP canal stenosis and flattening of the cord resulting in moderate AP canal stenosis. There is bilateral mild narrowing of neural foramina from uncovertebral hypertrophic changes. At C6-7 disc level there is mild AP canal stenosis from minimal disc bulge/osteophyte complex. The neural foramina are mildly narrowed bilaterally from uncovertebral hypertrophic changes. The C7-T1 disc level there is minimal anterolisthesis with mild pseudo bulge with minimal AP canal stenosis. The right neural foramina is patent. The cord signal and cervical-medullary junction is normal. The paravertebral soft tissues are normal. MR/MR cervical spine wo con IMPRESSION: Reversal of cervical lordosis with multilevel degenerative disc bulges/osteophyte complex resulting in canal stenosis from C3-4 through C6 testis 7 disc levels. There is anterolisthesis at several disc levels as well. Bilateral narrowing of neural foramina from uncovertebral hypertrophic changes are noted. Findings are slightly worse bilaterally at C3-4, C4-5 and C5-6 disc levels. Electronically signed by: Luis A Gaona MD 02/14/2025 07:47 AM EDT RP
== END 2025-02-12 18:13 | disposition home or self-care (01) ==
LOC: HO.MRI 18:12
PROVIDERS: Visit Provider Physician Assistant
DX: M50.90 Cervical disc disorder, unspecified, unspecified cervical region (principal)
CPT/HCPCS: 72141

== ENCOUNTER → 2025-02-12 18:23 | Outpatient (BNV) | payer MEDICAID, SELFPAY | PROVIDERS: Visit Provider Radiology Diagnostic Radiology | DX: M47.812 Spondylosis without myelopathy or radiculopathy, cervical region (principal); M48.02 Spinal stenosis, cervical region | CPT/HCPCS: 72141 ==

== ENCOUNTER 2025-02-23 13:47 | Outpatient (AMB) | payer MEDICAID, SELFPAY ==
--- NOTE | 2025-02-23 14:05 | HO.SPINEOV ---
Intake Visit Reasons: discuss MRI Intake Note: Mr. West is here today to F/u on the results to his MRI. Foam Rubber Molder Required: Yes Foam Rubber Molder Name: Panchito (Daughter) Allergies No Known Allergies Allergy (Verified 02/11/25 10:36) Assessment & Plan Assessment & Plan (1) Spondylolisthesis, lumbar region: Code(s): M43.16 - Spondylolisthesis, lumbar region Category: Medical (2) Chronic pain syndrome: Code(s): G89.4 - Chronic pain syndrome Category: Medical Plan Dear colleague, On February 23, 2025, I saw for follow-up Jenna Salter to discuss the MRI results of the cervical spine. He states that he has intermittent numbness in his right arm. He denies pain. My PA found signs of cervical myelopathy and therefore ordered an MRI of the cervical spine. The MRI shows multilevel degenerative changes without significant spinal cord compression. I re-examined him and I could not find any signs of cervical myelopathy. As far as the lumbar spine. He suffering from back pain with neurogenic claudication and imaging showing a grade 2 L4-5 spondylolisthesis with a complete L4-5 disc collapse. Surgery in the form of a minimally invasive oblique lumbar interbody fusion, is an excellent option to address these symptoms,. He is opposed to surgery currently. He would like to be referred for an epidural steroid injection. I refer him to our pain management. I spent 30 minutes in his consult to review imaging and discussing plan of care. Pancho Neal MD, PhD Spine Fellowship Trained Neurosurgeon Director, [facility] Orders: Referrals Pain Management Referral M43.16 - Spondylolisthesis, lumbar region Coding Level of Care Code Est Pt Level 4 (80146) Diagnoses Spondylolisthesis, lumbar region M43.16 Chronic pain syndrome G89.4
--- OUTSIDE RECORDS SUMMARY | 2025-02-23 15:40 | XMS_ITS | Clinical Summary ---
Author Organization [facility] Address [address] [place] [phone] Phone Care Team Providers Care Habilitative Interventionist Name Role Phone Physician, No Pcp Primary [...] to complete this topic Insurance MEDICAID - [place] Care Teams Habilitative Interventionist Relationship Specialty Start Date End Date Physician, No Pcp PCP - General 09/26/24
== END 2025-02-23 14:47 | disposition home or self-care (01) ==
LOC: HO.HNS 13:47
PROVIDERS: Visit Provider Neurological Surgery
DX: M43.16 Spondylolisthesis, lumbar region (principal); G89.4 Chronic pain syndrome
CPT/HCPCS: 99214

== ENCOUNTER → 2025-02-23 13:47 | Outpatient (BNVA) | payer MEDICAID, SELFPAY | PROVIDERS: Visit Provider Neurological Surgery | DX: M43.16 Spondylolisthesis, lumbar region (principal); G89.4 Chronic pain syndrome | CPT/HCPCS: 99212 ==

== ENCOUNTER 2025-04-07 06:41 | Outpatient (REF) | payer MEDICAID, SELFPAY ==
--- NOTE | ~2025-04-07 | FL_ITS ---
EXAMINATION: FL GUIDANCE ONLY HISTORY: M48.00 - Spinal stenosis, site unspecified COMPARISON: None available. TECHNIQUE: Fluoroscopy time: 0.2 minutes. Cumulative Dose: 10.0 mGy. DAP: 0.0678 mGym2 Images: 2. FINDINGS: Fluoroscopic spot films of the lumbar spine demonstrate a needle and contrast material in place. FL/FL guidance in treatment room IMPRESSION: Fluoroscopy during procedure. Please see procedure report for additional information. Electronically signed by: Kolby Chowdhury MD 04/07/2025 03:49 PM EDT
--- OUTSIDE RECORDS SUMMARY | 2025-04-07 06:43 | XMS_ITS | Clinical Summary ---
Author Organization [facility] Address [address] [place] [phone] Phone Care Team Providers Care Councillor [employer] Name Role Phone Pcp, Unknown Primary Care Provider Unavailabl e Immunizations Immunization Administration Dates Next Due Influenza Trivalent Preservative Free IM 025 Pneumococcal conjugate PCV20 12/24/2024 Tdap 12/24/2024 Social History Tobacco Use Types Packs/Day Years Used Date Smoking Tobacco: Never Assessed Education Answer Date Recorded Are you interested in more education? Not on fawn e 10/05/2024 Are you concerned about learning? Not on file 10/05/2024 No 10/05/2024 No 10/05/2024 Digital Access Answer Date Recorded No 10/05/2024 No 10/05/2024 Reliable internet access at home? Not on file 10/05/2024 Device with a working camera? Not on file Sex and Gender Information Value Date Recorded Sex Assigned at Not on file Legal Sex Male 8:49 AM EST Gender Identity Not on file Sexual Orientation Not on file Plan of Treatment Health Maintenance Due Date Last Done Comments DEPRESSION SCREENING 1962 SMOKING Hx and SMOKELESS TOB ACCO SCREENING 1963 HEPATITIS C SCREENING 1968 COLOGUARD 1995 COLONOSCOPY 1995 COLORECTAL CANCER SCREENING 1995 FIT TEST 1995 FOBT 1995 SIGMOIDOSCOPY 1995 VIRTUAL COLONOSCOPY 1995 ZOSTER VACCINES (1 of 2) 2000 COVID-19 VACCINE (2023-2 5 season) 2024 RSV VACCINE (1 - 1-dose 75+ series) 2025 LIPID PANEL 11/26/2029 11/26/2024 Adult Td,Tdap Booster 12/24/2034 12/24/2024 PNEUMOCOCCAL VACCINES (50+ years) Completed 025 HEPATITIS A VACCINES Aged Out No long er eligible based on patient's age to complete this topic HIB VACCINES Aged Out No longer eligi ble based on patient's age to complete this topic MENINGOCOCCAL VACCINES (ACWY) Aged Out No longer eligible based on patient's age to complete this topic MENINGOCOCCAL VACCINES (B) Aged Out N o longer eligible based on patient's age to complete this topic Medical Devices Not on file Insurance FULL Member Subscriber Plan / Payer (Ef fective 2024-Present) Name:Joie West Relation to Subscriber:Self Name:Joie West Payer ID:Not on file Group ID:Not on file Type:Medicaid Address: [address] [place] [facility] [place] [facility] FULL [facility] Care Teams Councillor [employer] Relationship Specialty Start Date End Date Pcp, Unknown PCP - General 10/05/24 Additional Source Comments The information contained in this document represents components of the legal health record. It is not the complete legal health record.[facility]
--- OUTSIDE RECORDS SUMMARY | 2025-04-07 06:43 | XMS_ITS | Clinical Summary ---
Author Organization [facility] Address [address] [place] [phone] Phone Care Team Providers Care Childbirth Educator Name Role Phone Physician, No Pcp Primary [...] 69 09/25/2024 10:23 PM EST Temperature 36.7 C (98 F) 09/25/2024 10:23 PM EST Respiratory Rate 17 [...] Vaccine (1 - 2023-2 5 season) 2024 Depression Screening 2024 Abdominal Aortic Aneurysm (A AA) Screen 09/25/2024 Cholesterol Screening (Lipid Panel) 09/25/2024 Colorectal Cancer Screening: Colonoscopy 09/25/2024 Falls Risk Assessment 09/25/2024 Hepatitis C Screening 09/25/2024 Social Influencers of Health Screening 09/25/2024 Influenza Vaccine (#1) 2025 HIB Vaccines Aged Out No longer [...] to complete this topic Insurance MEDICAID - [place] Care Teams Childbirth Educator Relationship Specialty Start Date End Date Physician, No Pcp PCP - General 09/26/24
--- OUTSIDE RECORDS SUMMARY | 2025-04-07 06:43 | XMS_ITS | Clinical Summary ---
Author Organization [employer] Address [address] [place] [address] Care Team Providers Care Oracle Sql Developer Name Role Phone Name, Mehran NAJERA Primary Care Provider [phone] Allergies No known active allergies Medications * This document contains information received from the source organization and may not represent a complete record from that organization. tiotropium (Spiriva HandiHaler) 18 MCG inhalation capsuleIndicati ons:Chronic cough Place 1 capsule (18 mcg) into inhaler and inhale in the morning. 30 capsule 11/27/19 Active atorvastatin (Lipitor) 20 MG tablet Take 1 tablet (20 mg) by mouth Once per day. 30 tablet 11/30/19 026 Active sertraline (Zoloft) 100 MG tablet Take 1 tablet (100 mg) by mouth Once per day. 30 tablet 12/25/19 026 Active albuterol 108 (90 Base) MCG/ACT inhalerIndicati ons:Chronic cough Inhale 2 puffs every 6 (six) hours if needed for wheezing. 18 g 12/25/19 25 026 Active fluticasone-jaimie meterol (Advair) 230-21 MCG/ACT inhaler Inhale 2 puffs in the morning and at bedtime. Rinse mouth with water after use to reduce aftertaste and incidence of candidiasis. Do not swallow. 12 g 12/25/19 25 026 Active Spacer/Aero-Hol ding Chambers deviceIndicatio ns:Oral thrush 1 Units if needed each day (with inhalers). 1 Device 03/09/20 25 Active meloxicam (Mobic) 7.5 MG tablet Take 1 tablet (7.5 mg) by mouth Once per day. 90 tablet 03/23/20 25 Active omeprazole OTC (PriLOSEC OTC) 20 MG EC tablet Take 1 tablet (20 mg) by mouth before breakfast. Do not crush, chew, or split. 90 tablet 03/23/20 25 026 Active baclofen (Lioresal) 20 MG tablet Take 0.5 tablets (10 mg) by mouth if needed each day for muscle spasms (Preferably at bedtime). 15 tablet 03/23/20 25 025 Active meloxicam (Mobic) 7.5 MG tablet TAKE ONE TABLET BY MOUTH ONCE DAILY 20 tablet 02/03/20 25 025 Discontinued meloxicam (Mobic) 7.5 MG tablet TAKE ONE TABLET BY MOUTH ONCE DAILY 20 tablet 03/09/20 25 025 Discontinued(R eorder (will not trigger notification to Pharmacy)) nystatin (Mycostatin) [id number] UNIT/ML suspensionIndic ations:Oral thrush Take 5 mL (500,000 Units) by mouth 4 times daily for 14 days. 280 mL 03/09/20 25 025 polyethylene glycol, PEG, 3350 (MiraLax) 17 GM/SCOOP powderIndicatio ns:Constipation , unspecified constipation type Take 17 g by mouth Once per day for 3 days. 527 g 2 03/09/20 25 025 docusate sodium (Colace) 100 MG capsuleIndicati ons:Constipatio n, unspecified constipation type Take 1 capsule (100 mg) by mouth 2 times daily for 10 days. 20 capsule 03/09/20 25 025 Active Problems Problem Noted Date Diagnosed Date [...] along th age will send pt to [facility] ER for further evaluation and treatment. Respiratory distress determined by examination 0 10/12/2024 Assessment & Plan (10/12/2024 1:41 PM EST): Pt is tachypneic, hypoxic with O2 SAT 94%, involving accessory muscle use and appears to be in acute respiratory distress. Will send to [facility] ER for further evaluation and treatment. Encounters * This document contains information received from the source organization and may not represent a complete record from that organization. Date Type Department Care Team Description 03/23/2025 11:30 AM EDT Office Visit [address] [address] Mehran Edward MD Suspected chronic obstructive pulmonary disease based on initial evaluation ([facility]) (Primary Dx); Osteoarthritis of lumbar spine with myelopathy; Pre-diabetes; Depression with anxiety 03/23/2025 Travel 03/22/[address] [address] Mehran Edward MD CHART PREP 03/09/2025 3:45 PM EDT Office Visit [address] [address] Aric Agudelo CNP Oral thrush (Primary Dx); Constipation, unspecified constipation type; Colon cancer screening 03/09/2025 Travel 03/09/[address] [address] Mehran Edward MD Nurse Triage 03/09/2025 Refill [facility] [address] [facility] [place] [address] Name, MD Mehran 02/01/2025 Refill [facility] [address] [address] Name, MD Mehran 01/21/2025 Orders Only [facility] External Provider, [facility] 01/17/2025 Refill [facility] [address] [place] [address] Name, MD Mehran from Last 3 Months Immunizations Immunization Administration Dates Next Due Influenza, seasonal, injectable, preservative fr ee 12/24/2024 Pneumococcal Conjugate PCV 20 12/24/2024 Tdap 12/24/2024 Social History Tobacco Use Types Packs/Day Years Used Date Smoking Tobacco: Former Cigarettes Passive Smoke Exposure: Past Smokeless Tobacco: Never Tobacco Cessation:Counseling Given: Not Answered Alcohol Use Standard Drinks/Week Comments Never 0 (1 standard drink = 0.6 oz pur e alcohol) Depression Answer Date Recorded Patient Health Questionnaire-9 Score 20 03/23/2025 Patient Health Questionnaire-9 Score 20 03/23/2025 Last PHQ-9: Questionnaire Data Not on file 0 03/23/2025 Housing Stability Answer Date Recorded What is [...] Date Recorded Patient Health Questionnaire-2 Score 6 03/23/2025 Internet Access Answer Date Recorded Internet Access [...] Sign Reading Time Taken Comments Blood Pressure 130/62 03/23/2025 11:57 AM EDT Pulse 68 03/23/2025 11:57 AM EDT Temperature 36.6 C (97.8 F) 03/23/2025 11:57 AM EDT Respiratory Rate 16 03/23/2025 11:57 AM EDT Oxygen Saturation 96% 03/23/2025 11:57 AM EDT Inhaled Oxygen Concentration - - Weight 82.6 kg (182 lb) 03/23/2025 11:57 AM EDT Height 157.5 cm (5' 2 ) 03/23/2025 11:57 AM EDT Body Mass Index 33.29 03/23/2025 11:57 AM EDT Plan of Treatment Upcoming Encounters Date Type Department Care Team (Late st Contact Info) Description 06/21/2025 11:00 AM EDT Office Visit [facility] [address] [place] [phone] Name, MD Mehran [address] [place] [phone] Health Maintenance Due Date Last Done Comments CT Colonography 1950 Colonoscopy 1950 Colorectal Cancer Screening 1950 FIT DNA/Cologuard 1950 FIT 1950 FOBT 1950 Sigmoidoscopy 1950 Hepatitis C Screening 1968 Zoster Vaccines (1 of 2) 2000 RSV Patients and Patients Aged 60 years or older (1 - Risk 60-74 years 1-dose series) 2010 COVID-19 Vaccine ( - 2023-2 5 season) 2024 Influenza Vaccine (#1) 2025 12/24/2024 Depression Monitoring 09/23/2025 03/23/2025 , 03/23/2025 Alcohol/Substance Use Screening 11/26/2025 11/26/2024 SDOH Screening 11/26/2025 11/26/2024 Diabetes: Hemoglobin A1C 03/23/2026 03/23/2025 Tobacco Screening 03/23/2026 03/23/2025 Lipid Panel 11/26/2029 11/26/2024 DTaP/Tdap/Td Vaccines (2 - T d or Tdap) 12/24/2034 12/24/2024 Pneumococcal Vaccine: 50+ Years Completed 12/24/2024 [...] Procedure Name Priority Date/Time Associated Diagnosis Comments POCT GLYCATED HEMOGLOBIN, TOTAL Routine 03/23/2025 12:33 PM EDT Pre-diabetes XR LUMBAR SPINE BENDING ONLY Routine 01/24/2025 10:16 AM EDT XR CHEST 2 VIEWS Routine 01/24/2025 10:1 6 AM EDT APTT Routine 01/21/2025 2:24 PM EDT PROTHROMBIN [...] 1 VIEW Routine 01/21/2025 1:20 PM EDT LIPID PANEL, STANDARD Routine 11/26/2024 10:56 AM EDT Screening for cholesterol level from Last 3 Months or Most Recently Relevant to Health Maintenance Results * (ABNORMAL) POCT HGB A1C (03/23/2025 12:33 PM EDT) Hemoglobin A1C 6.4(A) 4.0 - 5.7 % QC Media Lot # [id number] Lot# Expiration Date Blood 03/23/2025 12:3 3 PM EDT us Mehran Name POINT OF CARE TEST ENTER/EDIT OR DERABLES Final Result * XR LUMBAR SPINE BENDING ONLY (01/24/2025 10:16 AM EDT) Anatomical Region Laterality Modality Abdomen Radiographic Pebbles ging 01/24/2025 10:1 6 AM EDT Narrative 01/24/2025 11:01 AM EDT [facility] [place] [address] XRay Report Signed Patient: Joie West MR#: [id number] : 1950 Acct:[id number] Age/Sex: 74 / M ADM Date: 01/24/25 Loc: HO.HMGCX Attending Dr: Jazlyn Lemus APRN, CNP Ordering Physician: Jazlyn Lemus APRN, CNP Date of Service: 01/24/25 Procedure(s): XR lumbar spine bending only Accession Number(s): [id number] cc: Jazlyn Lemus APRN, [place]; Name,Mehran NAJERA EXAMINATION: XR LUMBOSACRAL SPINE BENDING FILMS ONLY CLINICAL INFORMATION: M43.16 - Spondylolisthesis, lumbar region COMPARISON: November 26, 2024. TECHNIQUE: Lateral views during flexion and extension. 2 views. FINDINGS: There is a 1.3 cm anterolisthesis at L4-5 during flexion and extension. There is an anterolisthesis with a lock morphology anteriorly between the inferior endplate of L4 and the superior endplate of L5. There is endplate sclerosis decreased intervertebral disc height at L4-5. Multilevel endplate sclerosis subchondral cyst formation and marginal osteophyte formation. There is a wedge-shaped compression deformity likely old representing 20% volume loss at T12. There is a grade 1 retrolisthesis at T12-L1 during extension position which corrects in flexion. XR/XR lumbar spine bending only IMPRESSION: Grade 1 anterolisthesis with a pseudoarthrosis at L4-5. No gross instability. Grade 1 retrolisthesis with likely instability at T12-L1. Electronically signed by: Jermaine Osman MD 01/24/2025 10:58 AM EDT Dictated By: Jermaine Grace MD Signed By: <Electronically signed by Jermaine Zhang MD in OV> 01/24/25 1058 DD/ 1016 TD/TT: 01/24/25 1024 Process Eng: Procedure Note Donotuseinterpreter, Image - 01/24/2025 [facility] [place] [address] XRay Report Signed Patient: Annabella West#: [id number] : 1950cct:[id number] Age/Sex: 74 / MADM Date: 01/24/25 Loc: HO.HMGCX Attending Dr: Jazlyn Lemus APRN, CNP Ordering Physician: Jazlyn Lemus APRN, CNP Date of Service: 01/24/25 Procedure(s): XR lumbar spine bending only Accession Number(s): [id number] cc: Jazlyn Lemus APRN, CNP; Name,Mehran NAJERA EXAMINATION: XR LUMBOSACRAL SPINE BENDING FILMS ONLY CLINICAL INFORMATION: M43.16 - Spondylolisthesis, lumbar region COMPARISON: November 26, 2024. TECHNIQUE: Lateral views during flexion and extension. 2 views. FINDINGS: There is a 1.3 cm anterolisthesis at L4-5 during flexion and extension. There is an anterolisthesis with a lock morphology anteriorly between the inferior endplate of L4 and the superior endplate of L5. There is endplate sclerosis decreased intervertebral disc height at L4-5. Multilevel endplate sclerosis subchondral cyst formation and marginal osteophyte formation. There is a wedge-shaped compression deformity likely old representing 20% volume loss at T12. There is a grade 1 retrolisthesis at T12-L1 during extension position which corrects in flexion. XR/XR lumbar spine bending only IMPRESSION: Grade 1 anterolisthesis with a pseudoarthrosis at L4-5. No gross instability. Grade 1 retrolisthesis with likely instability at T12-L1. Electronically signed by: Jermaine Osman MD 01/24/2025 10:58 AM EDT Dictated By: Jermaine Grace MD Signed By: <Electronically signed by Jermaine Zhang MDin OV> 01/24/25 1058 DD/ 1016 TD/TT: 01/24/25 1024 Process Eng: [facility] External Provider IMG XR PROCEDURES Final Result * XR Chest 2 Views (01/24/2025 10:16 AM EDT) Anatomical Region Laterality Modality Chest Radiographic Pebbles ging 01/24/2025 10:1 6 AM EDT Narrative 01/24/2025 10:57 AM EDT [facility] [address] [place] [address] [place] [address] XRay Report Signed Patient: Joie West MR#: [id number] : 1950 Acct:[id number] Age/Sex: 74 / M ADM Date: 01/24/25 Loc: HO.HMGCX Attending Dr: Jazlyn Lemus APRN, SCIENTIFIC PHOTOGRAPHER Ordering Physician: Torsten Earl MD Date of Service: 01/24/25 Procedure(s): XR chest 2V Accession Number(s): [id number] cc: Torsten Earl MD; Name,Mehran NAJERA EXAMINATION: XR CHEST CLINICAL INFORMATION: Follow up on pneumonia COMPARISON: January 21, 2025 TECHNIQUE: 2 views of the chest were obtained. FINDINGS: Pulmonary reticular pattern. Linear opacity both lung bases more as interrogated on the right side with blunting of the posterior costophrenic angles. No pneumothorax. Cardiomediastinal silhouette size is normal. Calcified plaque thoracic aortic arch. Multilevel thoracic and upper lumbar spondylosis. Mild kyphotic deformity lower thoracic spine. Degenerative changes in the shoulders. Osteopenia versus osteoporosis. XR/XR chest 2V IMPRESSION: Acute on chronic airspace disease with small thickening versus small volume pleural effusions. Overall slight improved aeration. Electronically signed by: Jermaine Osman MD 01/24/2025 10:54 AM EDT Dictated By: Jermaine Grace MD Signed By: <Electronically signed by Jermaine Zhang MD in OV> 01/24/25 1054 DD/ 1016 TD/TT: 01/24/25 1024 Process Eng: Procedure Note Donotuseinterpreter, Image - 01/24/2025 [facility] [address] [place] [address] [place] [address] XRay Report Signed Patient: Tory WestR#: [id number] : 1950cct:[id number] Age/Sex: 74 / MADM Date: 01/24/25 Loc: HO.HMGCX Attending Dr: Jazlyn Lemus APRN, SCIENTIFIC PHOTOGRAPHER Ordering Physician: Torsten Earl MD Date of Service: 01/24/25 Procedure(s): XR chest 2V Accession Number(s): [id number] cc: Torsten Earl MD; Name,Mehran NAJERA EXAMINATION: XR CHEST CLINICAL INFORMATION: Follow up on pneumonia COMPARISON: January 21, 2025 TECHNIQUE: 2 views of the chest were obtained. FINDINGS: Pulmonary reticular pattern. Linear opacity both lung bases more as interrogated on the right side with blunting of the posterior costophrenic angles. No pneumothorax. Cardiomediastinal silhouette size is normal. Calcified plaque thoracic aortic arch. Multilevel thoracic and upper lumbar spondylosis. Mild kyphotic deformity lower thoracic spine. Degenerative changes in the shoulders. Osteopenia versus osteoporosis. XR/XR chest 2V IMPRESSION: Acute on chronic airspace disease with small thickening versus small volume pleural effusions. Overall slight improved aeration. Electronically signed by: Jermaine Osman MD 01/24/2025 10:54 AM EDT Dictated By: Jermaine Grace MD Signed By: <Electronically signed by Jermaine Zhang MDin OV> 01/24/25 1054 DD/ 1016 TD/TT: 01/24/25 1024 Process Eng: [facility] External Provider IMG XR PROCEDURES Final Result * Partial Thromboplastin Time, Activated (APTT) (01/21/2025 2:24 PM EDT) Partial Thromboplastin Time 33.4 26.0 - 36.8 SEC [facility] Comment:For information rega rding the monitoring of direct thrombininhibitors, please refer to Pharmacy. 01/21/2025 2:24 PM EDT 01/21/2025 2:26 PM EDT Generic External Data Provider LAB BLOOD ORDERAB LES Final Result [facility] [address] [place] [phone] * (ABNORMAL) Prothrombin Time-INR (01/21/2025 2:24 PM EDT) Prothrombin Time 14.1(H) 10.9 - 12.4 [facility] INTERNATIONAL NORM RATIO 1.2(H) 0.9 - 1.1 [facility] Comment:INTERNATIONAL NORMAL IZED RATIO [...] 2:24 PM EDT 01/21/2025 2:26 PM EDT us Generic External Data Provider LAB BLOOD ORDERAB LES Final Result [facility] [address] [place] [phone] * (ABNORMAL) VENOUS BLOOD GAS (01/21/2025 1:57 PM EDT) VBG pH 7.47(H) 7.32 - 7.43 [facility] Comment:METER #: [id number] additional_comment: Minh leavitt VBG PCO2 33 mmHg [facility] Comment:METER #: [id number] additional_comment: Cb tree VBG PO2 63 mmHg [facility] Comment:METER #: [id number] additional_comment: Minh leavitt VBG Base Excess 2.0 mmol/L [facility] Comment:METER #: [id number] additional_comment: Minh leavitt VBG HCO3 24 22 - 26 mmol/L [facility] Comment:METER #: [id number] additional_comment: Minh leavitt O2 Sat, Mitch 93.0 % [facility] Comment:METER #: [id number] additional_comment: Cb patelha 01/21/2025 1:57 PM EDT 01/21/2025 2:00 PM EDT us Generic External Data Provider LAB BLOOD ORDERAB LES Final Result Performing Organization Address [facility] Co de Phone Number [facility] [address] [place] [phone] * High Sensitivity Troponin I (01/21/2025 1:50 PM EDT) [facility] TROPONIN I HIGH SENSITIVITY <2.7 <3.5 - 35.0 ng/L [facility] Comment:The Patrick high sens itivity Troponin-I results should beused in conjunction with other diagnostic information suchas ECG, clinical observations and information, and patientsymptoms to aid in the diagnosis of [place]. 01/21/2025 1:50 PM EDT 01/21/2025 1:55 PM EDT us Generic External Data Provider LAB BLOOD ORDERAB LES Final Result Performing Organization Address [facility] Co de Phone Number [facility] [address] [place] [phone] * B Type Natriuretic Peptide (BNP) (01/21/2025 1:50 PM EDT) [facility] B Type Natriuretic Peptide 11 <100 pg/mL [facility] 01/21/2025 1:50 PM EDT 01/21/2025 1:55 PM EDT us Generic External Data Provider LAB BLOOD ORDERAB LES Final Result Performing Organization Address [facility] Co de Phone Number [facility] [address] [place] [phone] * Hepatic Function Panel (01/21/2025 1:47 PM EDT) [facility] Bilirubin, Direct 0.3 0.0 - 0.5 mg/dL [facility] 01/21/2025 1:47 PM EDT 01/21/2025 1:55 PM EDT us Generic External Data Provider LAB BLOOD ORDERAB LES Final Result [facility] [address] [place] [phone] [phone] * (ABNORMAL) Comprehensive Metabolic Panel (01/21/2025 1:47 PM EDT) Sodium 130(L) 135 - 145 mmol/L [facility] Potassium 3.7 3.3 - 5.1 mmol/L [facility] Chloride 98 96 - 108 mmol/L [facility] Carbon Dioxide 24 22 - 29 mmol/L [facility] Anion Gap 12 12 - 20 [facility] Urea Nitrogen (BUN) 13 9 - 16 mg/dL [facility] Creatinine, Serum 0.69 0.5 - 1.4 mg/dL [facility] Creatinine Clr Calc Pharmacy 81.7 [facility] Comment:eGFR (calculated fro m the MDRD study equation) and eCrCl(calculated from the Cockcroft-Gault equation) are based ondifferent parameters and may not yield comparable results.If eCrCl result is absurd, please check patient'sheight/weight. Estimated Glomerular Filt Rate >60 [facility] Comment:Chronic Kidney Disea se: Estimated GFR < 60 mL/min/1.54d4Yglunt Kidney Disease: Estimated GFR < 15 mL/min/1.73m2 Glucose 152(H) 60 - 115 mg/dL [facility] Calcium 9.3 8.4 - 10.2 mg/dL [facility] Bilirubin, Total 0.9 0.0 - 1.0 mg/dL [facility] Aspartate Amino Transferase 20 5 - 37 U/L [facility] Alanine Aminotransferase 19 0 - 40 U/L [facility] Total Protein 7.6 6.5 - 8.0 g/dL [facility] Albumin Level 4.1 3.5 - 5.0 g/dL [facility] Alkaline Phosphatase 66 39 - 117 U/L [facility] 01/21/2025 1:47 PM EDT 01/21/2025 1:55 PM EDT Generic External Data Provider LAB BLOOD ORDERAB LES Final Result Performing Organization Address [facility]/ZIP Co de Phone Number [facility] [address] [place] [phone] * SARS-CoV-2 RNA, Influenza A/B, and RSV RNA, Ql NAAT (01/21/2025 1:46 PM EDT) [facility] Influenza A PCR NEGATIVE Negative [facility] Influenza B PCR NEGATIVE Negative [facility] Resp Syncy Virus RNA Qual PCR NEGATIVE Negative [facility] SARS COV2 PCR NEGATIVE Negative [facility] Comment:All test results mus t [...] use by authorized laboratories.Testing performed on the [employer] GeneXpert utilizingreal-time RT-PCR.All SARS CoV2 and positive influenza A/B results arereported to [facility]. 01/21/2025 1:46 PM EDT 01/21/2025 1:56 PM EDT us Generic External Data Provider LAB MICROBIOLOGY - GENERAL ORDERABLES Final Result Performing Organization Address [facility]/ZIP Co de Phone Number [facility] [address] [place] [phone] * (ABNORMAL) CBC auto differential (01/21/2025 1:46 PM EDT) White Blood Count 14.3(H) 4.8 - 10.8 X10*3/uL [facility] Red Blood Count 4.53(L) 4.60 - 5.80 X10*6/uL [facility] Hemoglobin 13.3(L) 14.0 - 18.0 g/dl [facility] Hematocrit 39.2(L) 42.0 - 52.0 % [facility] Mean Corpuscular Volume 86.5 80.0 - 98.0 fL [facility] Mean Corpuscular Hemoglobin 29.4 27.0 - 33.0 pg [facility] Mean Corpuscular HGB Conc 33.9 31.0 - 36.0 g/dl [facility] Red Cell Distribution Width 12.9 11.0 - 16.0 % [facility] Platelet Count 163 160 - 400 X10*3/uL [facility] Mean Platelet Volume 9.6 9.4 - 12.4 fL [facility] Neutrophils Percent Auto 81.5(H) 45 - 73 % [facility] Imm Gran Pct Auto 0.6(H) 0.0 - 0.4 % [facility] Lymphocytes Percent Auto 11.1(L) 20 - 40 % [facility] Monocytes Percent Auto 6.4 2 - 11 % [facility] Eosinophils Percent Auto 0.1 0 - 4 % [facility] Basophils Percent Auto 0.3 0 - 2 % [facility] NRBC Pct Auto 0.0 0.0 - 0.2 /100WBC [facility] Neutrophils Absolute Auto 11.7(H) 2.0 - 8.3 x10*3/uL [facility] Imm Gran Abs Auto 0.08(H) 0.00 - 0.03 X10*3/uL [facility] Lymphocytes Absolute Auto 1.6 1.2 - 4.9 X10*3/uL [facility] Monocytes Absolute Auto 0.9 0.1 - 1.2 X10*3/uL [facility] Eosinophils Absolute Auto 0.0 0.0 - 0.4 X10*3/uL [facility] Basophils Absolute Auto 0.0 0.0 - 0.2 X10*3/uL [facility] NRBC Abs Auto 0.000 0.0 - 0.012 X10*3/uL [facility] 01/21/2025 1:46 PM EDT 01/21/2025 1:55 PM EDT Generic External Data Provider LAB BLOOD ORDERAB LES Final Result Performing Organization Address [facility] Co de Phone Number [facility] [address] [place] [phone] * Lactic Acid (01/21/2025 1:46 PM EDT) Lactic Acid 0.9 0.5 - 2.0 mmol/L [facility] 01/21/2025 1:46 PM EDT 01/21/2025 2:12 PM EDT Generic External Data Provider LAB BLOOD ORDERAB LES Final Result Performing Organization Address [facility] de Phone Number [facility] [address] [place] [phone] * XR Chest 1 View (01/21/2025 1:20 PM EDT) Anatomical Region Laterality Modality Chest Radiographic Pebbles ging 01/21/2025 1:20 PM EDT Narrative 01/21/2025 1:43 PM EDT [address] [address] XRay Report Signed Patient: Joie West MR#: [id number] : 1950 Acct:[id number] Age/Sex: 74 / M ADM Date: 01/21/25 Loc: .ED Attending Dr: Ordering Physician: Rolando William MD Date of Service: 01/21/25 Procedure(s): XR chest 1V Accession Number(s): [id number] cc: Mehran Edward MD; Rolando William MD [...] 01/21/25 1341 DD/ 1320 TD/TT: 01/21/25 1330 Process Eng: Procedure Note Donotuseinterpreter, Image - 01/21/[address] [address] XRay Report Signed Patient: Annabella West#: [id number] : [id number]:[id number] Age/Sex: 74 / MADM Date: 01/21/25 Loc: .ED Attending Dr: Ordering Physician: Rolando William MD Date of Service: 01/21/25 Procedure(s): XR chest 1V Accession Number(s): [id number] cc: Name,Mehran NAJERA; Rolando William MD EXAMINATION: [...] 01/21/25 1341 DD/ 1320 TD/TT: 01/21/25 1330 Process Eng: [facility] External Provider IMG XR PROCEDURES Final Result * (ABNORMAL) Lipid Panel, Standard (11/26/2024 10:56 AM EDT) Triglycerides 98 <150 mg/dL [facility] Comment:Desirable Triglyceri de: less than 150 mg/dLBorderline High Triglyceride 150-199 mg/dLHigh Triglyceride: 200-499 mg/dLVery High Triglyceride: greater than or equal to 5OO mg/dL Cholesterol 208(H) <200 mg/dL [facility] Comment:Desirable Cholestero l: less than 200 mg/dLBorderline High Cholesterol: 200-239 mg/dLHigh Cholesterol: greater than 239 mg/dL LDL Cholesterol Calculated 150(H) <100 mg/dL [facility] Comment:Desirable LDL: less than 100 mg/dLNear Optimal/Above Optimal LDL: 110- 129 mg/dLBorderline High LDL: 130-159 mg/dLHigh LDL: 160-189 mg/dLVery High LDL: greater than or equal to 190 mg/dL HDL Cholesterol 39(L) >40 mg/dL [facility] Comment:Desirable HDL: great er than 40 mg/dL Note: This HDL assay may give artificially low results in patients with liver disease. Blood Venous blood specimen / Unknown 11/26/2024 10:56 AM EDT 11/26/2024 1:32 PM EDT Mehran Edward MD LAB BLOOD ORDERABLES Final Resul t [facility] [address] [place] [phone] from Last 3 Months or Most Recently Relevant to Health Maintenance Insurance [employer] [facility] STANDARD Care Teams Oracle Sql Developer Relationship Specialty Start Date End Date Name, MD Mehran [address] [place] [id number] PCP - General Internal Medicine 11/26/24
== END 2025-04-07 06:42 | disposition home or self-care (01) ==
LOC: CF 06:41
PROVIDERS: Visit Provider Internal Medicine
DX: M48.00 Spinal stenosis, site unspecified (principal); M54.16 Radiculopathy, lumbar region
CPT/HCPCS: 62323; J2003; J3301; Q9967

== ENCOUNTER 2025-04-07 12:41 | Outpatient (AMB) | payer MEDICAID, SELFPAY ==
--- NOTE | 2025-04-07 12:52 | MHC.OFFVIS ---
Vital Signs 04/07/25 12:53 04/07/25 13:42 Height 5 ft 5 in 5 ft 5 in Weight 179 lb BMI 29.8 BP 137/62 131/79 Blood Pressure Location Lt brachial Rt brachial Position Sitting Sitting Respiration 16 Pulse 81 80 Pulse Source Pulse Oximeter Pulse Oximeter Pulse Oximetry (%) 95 96 Oxygen Delivery Method Room Air Room Air Intake Visit Reasons: Jatinder L3-L4 interlaminar RABIA Allergies No Known Allergies Allergy (Verified 02/11/25 10:36) HPI HPI Jatinder L3-L4 interlaminar RABIA: Details: Patient presents for scheduled procedure. Denies any recent cough, cold, infection, fever or other significant changes in medical history since last office visit. [facility] Medical History Suspected chronic obstructive pulmonary disease based on initial evaluation Anxiety Depression Social History (Updated 02/11/25 @ 10:36 by Katelin Domingo CMA) Household Members: Children Housing: House Do you presently have visiting nurse or other home services: Yes Patient Tobacco Use Status: Former Tobacco user service: No Physical Exam Vital Signs: Last Vital Signs Pulse 80 04/07/25 13:42 Resp 16 04/07/25 12:53 BP 131/79 04/07/25 13:42 Pulse Ox 96 04/07/25 13:42 Oxygen Delivery Method Room Air 04/07/25 13:42 BMI result Body Mass Index 29.8 Office Procedures AMB Joint Injection/Aspiration Joint Injection/Aspiration Details: Interlaminar epidural steroid injection, L3/4 After obtaining written consent, pre-procedure blood pressure and heart rate were stable and recorded in the nursing record. The patient was placed in the prone position. The lumbar area was widely prepped with chloraprep and draped in sterile fashion. Fluoroscopic guidance was used to identify the desired interlaminar space and for needle placement. Subcutaneous 0.5% lidocaine was used to anesthetize the skin overlying the target. A 20-gauge Patel needle was advanced to the epidural space using loss of resistance to contrast technique under fluoroscopic AP and contralateral oblique views. The right side was accessed 1st and then the left side was accessed with loss of resistance. There was no evidence of heme or CSF and no paresthesias were elicited with needle placement. Confirmation of epidural needle placement was performed with 1cc of omnipaque 180. Next 2 ml 0.5% lidocaine mixed with 40 mg triamcinilone was administered epidurally on each side with no pain elicited on injection. The needle tract tubing was then cleared with 1 ml of 0.5% lidocaine. The needle was removed, skin cleansed and a sterile bandage was applied. The patient tolerated the procedure well and no complications were encountered. Following the procedure the patient's vital signs were stable. The patient was discharged home in good condition with post-procedural instructions. Time Out: Immediately prior to the procedure, the following was verbally confirmed that there is a signed consent form and that the correct patient, planned procedure, site and side are consistent with documentation and that necessary equipment and/or blood products are available prior to the start of the case. Complications: none EBL: <2 cc Coding 77754 - Caudal/Lumbar Epidural/Interlaminar with fluoroscopy Procedure code (CPT) selection complete Assessment & Plan Assessment & Plan (1) Lumbar radiculopathy: Code(s): M54.16 - Radiculopathy, lumbar region Category: Medical Plan Patient is status post interlaminar L3-4 RABIA. Patient tolerated procedure well and was discharged home in stable condition with discharge instructions. All questions were answered. We will follow-up via telephone or in clinic to assess response to therapy. A follow-up appointment was made during today's visit. Orders: Orders FL guidance in treatment room 04/07/25 M48.00 - Spinal stenosis, site unspecified Coding Level of Care Code Procedure Only Diagnoses Lumbar radiculopathy M54.16 CPT Codes Coding - Joint 11: 99077 - Caudal/Lumbar Epidural/Interlaminar with fluoroscopy ([id number])
[2025-04-07 12:53] VITALS: BP 137/62; PULSE 81; RESP 16; O2SAT 95; BMI 29.8
[2025-04-07 13:42] VITALS: BP 131/79; PULSE 80; O2SAT 96
== END 2025-04-07 13:42 | disposition home or self-care (01) ==
LOC: HO.PMCPRC 12:41
PROVIDERS: Visit Provider Internal Medicine
DX: M54.16 Radiculopathy, lumbar region (principal)
CPT/HCPCS: 62323

== ENCOUNTER 2025-05-10 13:54 | Outpatient (REF) | payer MEDICAID, SELFPAY ==
--- NOTE | 2025-05-10 14:13 | PFT_ITS ---
Flows: FEV1: 41 % of predicted at 0.93 L FVC: 63 % of predicted at 1.85 L FEV1/FVC: 50 % Bronchodilator response: Present Volumes: Total lung capacity: 102 % of predicted at 5.25 L Residual volume: 168 % of predicted at 3.30 L Slow vital capacity: 62 % of predicted at 1.95 L Expiratory reserve volume: 6 % of predicted at 0.04 L Diffusion capacity: Severely decreased, adjusts to being moderately decreased after correction for alveolar ventilation. Impression: Severe obstructive ventilatory defect with positive bronchodilator response. Increased residual volume suggests air trapping. Decreased expiratory reserve volume suggests extrathoracic restriction likely secondary to abdominal obesity. Decreased diffusion capacity suggests emphysema. MTDD
--- OUTSIDE RECORDS SUMMARY | 2025-05-10 14:45 | XMS_ITS | Clinical Summary ---
Author Organization [facility] Address [address] [place] [phone] Phone Care Team Providers Care Tariff Clerk Name Role Phone Pcp, Unknown Primary Care Provider Unavailabl e Immunizations Immunization Administration Dates Next Due INFLUENZA, SPLIT VIRUS, TRIVALENT PF 12/24/2024 Pneumococcal conjugate PCV20 12/24/2024 Tdap 12/24/2024 Social [...] file Group ID:Not on file Type:Medicaid Address: [address] [place] [facility] [place] [facility] Care Teams Tariff Clerk Relationship Specialty Start Date End Date Pcp, Unknown PCP - General 10/05/24 Additional Source Comments The information contained in this document represents components of the legal health record. It is not the complete legal health record.[facility]
--- OUTSIDE RECORDS SUMMARY | 2025-05-10 14:45 | XMS_ITS | Clinical Summary ---
Author Organization [facility] Address [address] [place] [phone] Phone Care Team Providers Care Section Cutter Name Role Phone Physician, No Pcp Primary [...] to complete this topic Insurance [place] Care Teams Section Cutter Relationship Specialty Start Date End Date Physician, No Pcp PCP - General 09/26/24
--- OUTSIDE RECORDS SUMMARY | 2025-05-10 14:45 | XMS_ITS | Clinical Summary ---
Author Organization [employer] Address [address] [facility] [address] [place] [address] Care Team Providers Care Department Assistant Name Role Phone Name, Mehran NAJERA Primary Care Provider [phone] Allergies No known active allergies Medications * [...] swallow. 12 g 12/25/19 25 026 Active Spacer/Aero-Ho lding Chambers deviceIndicati ons:Oral thrush 1 Units if needed each day [...] 026 Active baclofen (Lioresal) 20 MG tablet TAKE 1/2 TABLET BY MOUTH ONCE DAILY AT BEDTIME NEEDED FOR MUSCLE SPASMS 15 tablet 04/19/20 25 Active baclofen (Lioresal) 20 MG tablet Take 0.5 tablets (10 mg) by mouth if needed each day for muscle spasms (Preferably at bedtime). 15 tablet 03/23/20 25 025 Discontinued Active Problems Problem Noted Date Diagnosed Date [...] pt is on new patient list at [facility]. Hearing loss 10/12/2024 Vision loss 10/12/2024 Hemoptysis 10/12/2024 Assessment & Plan (10/12/2024 1:40 PM EST): Cough x2 weeks that keeps worsening with recent hemoptysis. On exam pt is tachypneic, hypoxic with O2 SAT 94%, involving accessory muscle use and seemingly in respiratory distress. Blood pressure is soft. Given above mentioned respiratory symptoms and presentation along th age will send pt to [facility] ER for further evaluation and treatment. Respiratory distress determined by examination 0 10/12/2024 Assessment & Plan (10/12/2024 1:41 PM EST): Pt is tachypneic, hypoxic with O2 SAT 94%, involving accessory muscle use and appears to be in acute respiratory distress. Will send to [facility] ER for further evaluation and treatment. Encounters * This document contains information received from the source organization and may not represent a complete record from that organization. Date Type Department Care Team Description 04/17/2025 Refill [facility] [address] [place] [address] Mehran Edward MD 03/23/2025 11:30 AM EDT Office Visit [facility] [address] [place] [address] Mehran Edward MD Suspected chronic obstructive pulmonary disease based on initial evaluation (CMS/[facility]) (Primary Dx); Osteoarthritis of lumbar spine with myelopathy; Pre-diabetes; Depression with anxiety 03/23/2025 Travel 03/22/2025 Telephone [facility] [place] [address] Mehran Edward MD CHART PREP 03/09/2025 3:45 PM EDT Office Visit [facility] [place] [address] Aric Agudelo, [place] Oral thrush (Primary Dx); Constipation, unspecified constipation type; Colon cancer screening 03/09/2025 Travel 03/09/2025 Telephone [facility] [place] [address] Mehran Edward MD Nurse Triage 03/09/2025 Refill [facility] [place] [place] [address] Mehran Edward MD from Last 3 Months Immunizations Immunization Administration [...] Description 06/21/2025 11:00 AM EDT Office Visit [facility] [address] [place] [address] Name, MD Mehran [address] [place] [address] Health Maintenance Due Date Last Done Comments [...] TOTAL Routine 03/23/2025 12:33 PM EDT Pre-diabetes LIPID PANEL, STANDARD Routine 11/26/2024 10:56 AM [...] TEST ENTER/EDIT OR DERABLES Final Result * (ABNORMAL) Lipid Panel, Standard (11/26/2024 10:56 AM EDT) Triglycerides 98 <150 mg/dL [facility] Comment:Desirable Triglyceri de: less than 150 mg/dLBorderline High Triglyceride 150-199 mg/dLHigh Triglyceride: 200-499 mg/dLVery High Triglyceride: greater than or equal to 5OO mg/dL Cholesterol 208(H) <200 mg/dL [facility] Comment:Desirable Cholestero l: less than 200 mg/dLBorderline High Cholesterol: 200-239 mg/dLHigh Cholesterol: greater than 239 mg/dL LDL Cholesterol Calculated 150(H) <100 mg/dL [facility] Comment:Desirable LDL: less than 100 mg/dLNear Optimal/Above Optimal LDL: 110- 129 mg/dLBorderline High LDL: 130-159 mg/dLHigh LDL: 160-189 mg/dLVery High LDL: greater than or equal to 190 mg/dL HDL Cholesterol 39(L) >40 mg/dL [facility] Comment:Desirable HDL: great er than 40 mg/dL Note: This HDL assay may give artificially low results in patients with liver disease. Blood Venous blood specimen / Unknown 11/26/2024 10:56 AM EDT 11/26/2024 1:32 PM EDT Mehran Edward MD LAB BLOOD ORDERABLES Final Resul t [facility] [address] [place] [address] [phone] from Last 3 Months or Most Recently Relevant to Health Maintenance Insurance [facility] F[facility] STANDARD Care Teams Department Assistant Relationship Specialty Start Date End Date Name, MD Mehran [address] [place] [address] PCP - General Internal Medicine 11/26/24
[2025-05-10 14:58] VITALS: PULSE 86; O2SAT 96
== END 2025-05-10 13:55 | disposition home or self-care (01) ==
LOC: HO.RESP 13:54
PROVIDERS: Visit Provider Nurse Practitioner Family
DX: J44.9 Chronic obstructive pulmonary disease, unspecified (principal)
CPT/HCPCS: 94010; 94640; 94727; 94729

== ENCOUNTER → 2025-05-10 14:13 | Outpatient (BNV) | payer MEDICAID, SELFPAY | PROVIDERS: Visit Provider Internal Medicine Pulmonary Disease | DX: J98.4 Other disorders of lung (principal) | CPT/HCPCS: 94060; 94727; 94729 ==

== ENCOUNTER 2025-05-13 09:34 | Outpatient (AMB) | payer MEDICAID, SELFPAY ==
--- NOTE | 2025-05-13 09:41 | MHC.OFFVIS ---
Vital Signs 05/13/25 09:42 Height 5 ft 5 in Weight 175 lb BMI 29.1 BP 128/65 Blood Pressure Location Rt brachial Position Sitting Respiration 16 Pulse 86 Pulse Source Pulse Oximeter Pulse Oximetry (%) 94 Oxygen Delivery Method Room Air Intake Visit Reasons: s/p chago L3-L4 interlaminar RABIA Rehab Therapy Manager Required: No Accompanied by: Daughter Allergies No Known Allergies Allergy (Verified 05/13/25 09:43) HPI Comments Details: The patient is a 74-year-old male presenting with chronic back pain and leg numbness, 1 month status post L3-4 interlaminar RABIA. The back pain worsens with prolonged walking and improves with rest. Initially, steroid injections provided some relief, but the effect has diminished over time. The patient is personally avoiding surgery at this time and is considering alternative pain management options. He has been taking meloxicam as prescribed by his PCP but pain persists. Reports he can only walk short distances otherwise pain exacerbate to 9/10. - Onset: Pain worsens with prolonged walking - Quality: Chronic back pain with associated leg numbness - Location: Back and legs - Exacerbating factors: Long-distance walking - Relieving factors: Rest - Affect: No specific mood changes reported - Analgesia: Initial relief from steroid injections noted - Adverse Effects: Monitor for mood or activity changes - Activities of Daily Living: Pain impacts ability to walk long distances - Aberrant Drug Related Behaviors: None reported [facility] Medical History Suspected chronic obstructive pulmonary disease based on initial evaluation Anxiety Depression Social History (Updated 02/11/25 @ 10:36 by Katelin Domingo [facility]) Household Members: Children Housing: House Do you presently have visiting nurse or other home services: Yes Patient Tobacco Use Status: Former Tobacco user service: No Review of Systems Const Details: - Musculoskeletal: Reports chronic back pain and leg numbness Physical Exam Exam Exam: General: awake, alert, oriented. Answers questions appropriately. Fully engaged in examination. Skin: warm, dry, intact HEENT: Normocephalic. Hearing intact. Cardiac: External chest normal in appearance. Respiratory: No cough, audible wheezing or stridor. Abdomen: without gross distension. MS: No obvious swelling or deformities. Able to transition from sit to stand unassisted. Ambulates with bilaterally normal heel strike and toe off Bilateral lower extremity strength 5/5 Neurological: Oriented to person, place, time and situation. Thought process intact. Ambulates with use of a cane Psychiatric: Appropriate mood and affect. Good judgment and insight. 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 Conus maintains normal caliber and intrinsic signal, termination is at T12-1. Schmorl's nodes seen at T12-L1, L1-2. There is grade I anterolisthesis measuring 7 mm at L4-5 due to chronic spondylolysis. Mild anterior wedge deformity of T11 and T12 at the upper limits of normal physiology. No evidence of recent fractures. Minor degenerative endplate reaction seen posteriorly at T12-1. Marrow signal elsewhere within normal limits. L5-S1: Mild to moderate disc degeneration. L5 partially sacralized to the right in the right facet joint hypoplastic. No posterior disc protrusion, significant spinal canal or foraminal narrowing. L4-5: Severe disc degeneration with grade I spondylolisthesis due to chronic bilateral L5 pars defects. Anterior-posterior elongation of spinal canal with severely narrowed neural foramina. Both exiting L4 nerves impinged. L3-4: Mild disc degeneration with posterior bulge, ligamentous hypertrophy and mild facet joint arthrosis superimposed upon inherently small canal resulting in moderately severe spinal stenosis (axial images 27-28 series 8). There is mild biforaminal narrowing greater left. L2-3: Mild disc degeneration with posterior bulge, ligamentous hypertrophy and mild facet joint arthrosis. Combined changes are superimposed upon congenitally small canal resulting in moderately severe spinal stenosis (axial image 20 series 8). Neural foramina mildly stenotic. L1-2: Mild disc degeneration with posterior bulge, ligamentous hypertrophy and mild facet joint arthrosis. Combined changes produce moderate spinal canal and mild biforaminal narrowing. T12-1 through T10-11: Disc dehydration and height loss throughout. T12-L1 disc bulge present and no protrusions. No significant spinal canal stenosis and only mildly narrowed neural foramina. There is no exiting nerve compression. No prevertebral/paraspinous soft tissue masses or collections. Included pelvis intact and marrow signal normal. Superior portions of sacroiliac joints show no effusions, subarticular edema or sclerosis. Incidental left renal cyst. CONCLUSION: Diffuse lumbar spondylosis superimposed upon congenitally small canal with transitional lumbosacral junction. Salient features as follows: 1. Severe L4-5 biforaminal stenoses due to chronic L5 pars interarticularis defects and grade I anterolisthesis. Exiting L4 nerves impinged. 2. Moderately severe L2-3, L3-4 with more moderate L1-2 spinal stenoses due to bulging discs and dorsal element overgrowth. Neural foramina mildly narrowed. 11/26/2024 XR/XR lumbar spine 2-3V FINDINGS: No scoliosis. Normal lordosis. Mild osteopenia. No fracture, compression deformity, or suspicious bone lesion. There is a 14 mm spondylolisthesis at L4-5. There are bilateral full-thickness pars defects. Severe disc degeneration L4-5 with disc vacuum phenomenon and sclerosis of the endplates. Disc spaces are otherwise relatively preserved. Facets demonstrate normal alignment. There is severe hypertrophic facet arthropathy at L4-5. Unremarkable appearing sacrum and SI joints. Mild vascular calcifications in the soft tissues. IMPRESSION: 1. No acute bony abnormalities. 2. Grade 1/2 spondylolisthesis L4-5, with severe associated disc degeneration. Assessment & Plan Assessment & Plan (1) Spondylolisthesis, lumbar region: Code(s): M43.16 - Spondylolisthesis, lumbar region Category: Medical (2) Lumbar spondylosis: Code(s): M47.816 - Spondylosis without myelopathy or radiculopathy, lumbar region Category: Medical (3) Chronic pain syndrome: Code(s): G89.4 - Chronic pain syndrome Category: Medical Plan I discussed with the patient the current management plan for his chronic back pain, including the use of memantine as a safer alternative to opioids and the potential for a caudal epidural steroid injection in two months. We reviewed the importance of avoiding OTC NSAIDs while taking prescribed meloxicam to prevent kidney strain and considered surgical options if the pain becomes unmanageable. Patient was informed and verbally consented to the use of an ambient scribe for clinic note documentation during this visit Medications: New memantine (Namenda XR) 7 mg PO DAILY 30 ea 0RF Patient Instructions: - Take memantinee as prescribed and monitor for any mood or activity changes. - Avoid OTC nonsteroidal anti-inflammatory drugs such as ibuprofen and naproxen. - Consider surgical options if pain becomes unmanageable. - Plan for a follow-up steroid injection in two months. Coding Level of Care Code Est Pt Level 3 (91536) Complex EM visit Add On G2211 Diagnoses Spondylolisthesis, lumbar region M43.16 Lumbar spondylosis M47.816 Chronic pain syndrome G89.4
[2025-05-13 09:42] VITALS: BP 128/65; PULSE 86; RESP 16; O2SAT 94; BMI 29.1
--- OUTSIDE RECORDS SUMMARY | 2025-05-13 10:23 | XMS_ITS | Clinical Summary ---
Author Organization [facility] Address [address] [place] [phone] Phone Care Team Providers Care Drum Operator Name Role Phone Pcp, Unknown Primary Care [...] 2000 COVID-19 VACCINE (2023-2 5 season) 2024 INFLUENZA VACCINE (#1) 2025 12/24/2024 RSV VACCINE (1 - 1-dose 75+ series) [...] file Group ID:Not on file Type:Medicaid Address: [address] [facility] Care Teams Drum Operator Relationship Specialty Start Date End Date Pcp, Unknown PCP - General 10/05/24 Additional Source Comments The information contained in this document represents components of the legal health record. It is not the complete legal health record.[facility]
--- OUTSIDE RECORDS SUMMARY | 2025-05-13 10:23 | XMS_ITS | Clinical Summary ---
Author Organization [employer] Address [address] [facility] [address] [place] [address] Care Team Providers Care Estate Agent Name Role Phone Name, Meharn NAJERA Primary Care Provider [phone] Allergies No known active allergies Medications * [...] pt is on new patient list at [facility]. Hearing loss 10/12/2024 Vision loss 10/12/2024 Hemoptysis 10/12/2024 Assessment & Plan (10/12/2024 1:40 PM EST): Cough x2 weeks that keeps worsening with recent hemoptysis. On exam pt is tachypneic, hypoxic with O2 SAT 94%, involving accessory muscle use and seemingly in respiratory distress. Blood pressure is soft. Given above mentioned respiratory symptoms and presentation along th age will send pt to [facility] ER for further evaluation and treatment. Respiratory distress determined by examination 0 10/12/2024 Assessment & Plan (10/12/2024 1:41 PM EST): Pt is tachypneic, hypoxic with O2 SAT 94%, involving accessory muscle use and appears to be in acute respiratory distress. Will send to [facility] ER for further evaluation and treatment. Encounters * This document contains information received from the source organization and may not represent a complete record from that organization. Date Type Department Care Team Description 04/17/2025 Refill [facility] [address] [facility] [place] [address] Mehran Edward MD 03/23/2025 11:30 AM EDT Office Visit [facility] [address] [facility] [place] [address] Mehran Edward MD Suspected chronic obstructive pulmonary disease based on initial evaluation (CMS/[facility]) (Primary Dx); Osteoarthritis of lumbar spine with myelopathy; Pre-diabetes; Depression with anxiety 03/23/2025 Travel 03/22/2025 Telephone [facility] [place] [address] Mehran Edward MD CHART PREP 03/09/2025 3:45 PM EDT Office Visit [facility] [place] [address] Aric Agudelo, [place] Oral thrush (Primary Dx); Constipation, unspecified constipation type; Colon cancer screening 03/09/2025 Travel 03/09/2025 Telephone [facility] [place] [address] Mehran Edward MD Nurse Triage 03/09/2025 Refill [facility] [place] [address] Mehran Edward MD from Last 3 Months [...] Description 06/21/2025 11:00 AM EDT Office Visit [facility] [address] [facility] [place] [address] Name, MD Mehran [address] [place] [address] Health Maintenance Due Date Last Done Comments [...] 10:56 AM EDT) Triglycerides 98 <150 mg/dL [facility] Comment:Desirable Triglyceri de: less than 150 mg/dLBorderline High Triglyceride 150-199 mg/dLHigh Triglyceride: 200-499 mg/dLVery High Triglyceride: greater than or equal to 5OO mg/dL Cholesterol 208(H) <200 mg/dL [facility] Comment:Desirable Cholestero l: less than 200 mg/dLBorderline High Cholesterol: 200-239 mg/dLHigh Cholesterol: greater than 239 mg/dL LDL Cholesterol Calculated 150(H) <100 mg/dL [facility] Comment:Desirable LDL: less than 100 mg/dLNear Optimal/Above Optimal LDL: 110- 129 mg/dLBorderline High LDL: 130-159 mg/dLHigh LDL: 160-189 mg/dLVery High LDL: greater than or equal to 190 mg/dL HDL Cholesterol 39(L) >40 mg/dL [facility] Comment:Desirable HDL: great er than 40 mg/dL Note: This HDL assay may give artificially low results in patients with liver disease. Blood Venous blood specimen / Unknown 11/26/2024 10:56 AM EDT 11/26/2024 1:32 PM EDT Mehran Edward MD LAB BLOOD ORDERABLES Final Resul t [facility] [address] [place] [address] [phone] from Last 3 Months or Most Recently Relevant to Health Maintenance Insurance [facility] [employer] Care Teams Estate Agent Relationship Specialty Start Date End Date Name, MD Mehran [address] [place] [address] PCP - General Internal Medicine 11/26/24
--- OUTSIDE RECORDS SUMMARY | 2025-05-13 10:23 | XMS_ITS | Clinical Summary ---
Author Organization [facility] Address [address] [place] [phone] Phone Care Team Providers Care Jig And Fixture Builder Name Role Phone Physician, No Pcp Primary [...] to complete this topic Insurance MEDICAID - [place] Care Teams Jig And Fixture Builder Relationship Specialty Start Date End Date Physician, No Pcp PCP - General 09/26/24
== END 2025-05-13 10:10 | disposition home or self-care (01) ==
LOC: HO.PMC 09:35
PROVIDERS: Visit Provider Registered Nurse Emergency
DX: M43.16 Spondylolisthesis, lumbar region (principal); M47.816 Spondylosis without myelopathy or radiculopathy, lumbar region; G89.4 Chronic pain syndrome
CPT/HCPCS: 99213

== ENCOUNTER → 2025-05-13 09:34 | Outpatient (BNVA) | payer MEDICAID, SELFPAY | PROVIDERS: Visit Provider Registered Nurse Emergency | DX: M43.16 Spondylolisthesis, lumbar region (principal); M47.816 Spondylosis without myelopathy or radiculopathy, lumbar region; G89.4 Chronic pain syndrome | CPT/HCPCS: 99212 ==

== ENCOUNTER 2025-06-23 09:41 | Outpatient (REF) | payer MEDICAID, SELFPAY ==
[2025-06-23 11:51] LABS: Alanine Aminotransferase 27 U/L (0-40); Albumin Level 4.1 g/dL (3.5-5.0); Alkaline Phosphatase 72 U/L (39-117); Anion Gap 7 (12-20); Aspartate Amino Transferase 34 U/L (5-37); Blood Urea Nitrogen 9 mg/dL (9-16); Calcium 9.2 mg/dL (8.4-10.2); Carbon Dioxide 30 mmol/L (22-29); Chloride 107 mmol/L (96-108); Cholesterol 110 mg/dL (<200); Estimated Glomerular Filt Rate > 60; HDL Cholesterol 24 mg/dL (>40); Potassium 4.4 mmol/L (3.3-5.1); Sodium 140 mmol/L (135-145); Total Protein 7.1 g/dL (6.5-8.0); Triglycerides 76 mg/dL (<150)
== END 2025-06-23 09:42 | disposition home or self-care (01) ==
LOC: HO.HHCL 09:41
PROVIDERS: PCP Internal Medicine Geriatric Medicine; Visit Provider Internal Medicine Geriatric Medicine
DX: R73.03 Prediabetes (principal); E78.00 Pure hypercholesterolemia, unspecified
CPT/HCPCS: 36415; 80053; 80061; 83036

== ENCOUNTER 2025-08-19 09:09 | Outpatient (AMB) | payer MEDICAID, SELFPAY ==
--- NOTE | 2025-08-19 09:25 | A.OFFVIS_ITS ---
Vital Signs 08/19/25 09:27 Height 5 ft 5 in Weight 184 lb BMI 30.6 BP 137/66 Blood Pressure Location Lt brachial Position Sitting Respiration 16 Pulse 67 Pulse Source Pulse Oximeter Pulse Oximetry (%) 95 Oxygen Delivery Method Room Air Intake Visit Reasons: injection discussion Student Education Specialist Required: Yes Student Education Specialist Services: Student Education Specialist Offered & Declined Student Education Specialist Name: Prefers daughter to translate Accompanied by: Child Allergies No Known Allergies Allergy (Verified 08/19/25 09:29) Medication List - Last Reconciled 08/19/25 by Rosmery Villarreal LPN acetaminophen 325 mg PO Q4H PRN Advair HFA 230-21 mcg/actuation (fluticasone propion-salmeterol) 2 puffs inhalation BID NS albuterol sulfate 90 mcg/actuation 2 puffs inhalation Q6H PRN atorvastatin 20 mg PO DAILY ipratropium-albuterol 0.5 mg-3 mg(2.5 mg base)/3 mL 3 mL inhalation Q6H PRN meloxicam 7.5 mg PO DAILY memantine (Namenda XR) 7 mg PO DAILY sertraline 100 mg PO DAILY tiotropium bromide (Spiriva with HandiHaler) 1 cap inhalation DAILY HPI HPI injection discussion: Details: History of Present Illness The patient is a 74 year old male presenting for a follow-up visit for chronic low back pain. His primary complaint is back pain that is exacerbated by walking, standing, and rising from a bent position, which he experiences during Salah (prayer). He received a cortisone injection in March which provided approximately 50% pain relief for about two months. His pain has now returned to the pre-injection baseline. The patient is considering stopping injections due to concerns about cortisone, citing a family member who experienced a back fracture possibly due to repeated cortisone use. The patient and his family express significant fear and hesitation regarding the recommendation for surgery. They are concerned about potential post-operative disability, such as being bedridden or unable to use the bathroom independently. He is currently taking meloxicam and Tylenol. Pain Description - Location: The patient reports pain in his back. - Radiation: He experiences pain down the leg due to nerve pulling. - Exacerbating factors: Pain is worse with walking, standing, and rising from a bent position (Ruku) during prayer. - Relieving factors: A previous cortisone injection provided 50% relief for approximately two months. - Impact on function: Pain interferes with his ability to perform daily activities and prayers. Physical Exam - General: Patient's weight was obtained. Results - Imaging: Review of prior imaging shows a vertebra has slipped forward, causing it to grind against the bone and disc below it. - This slippage is also pulling the nerves forward, causing radicular pain. Pain Management - Analgesia: The patient reports his pain has returned to baseline after receiving about 50% relief for two months from a cortisone injection in March. - He is currently taking meloxicam and Tylenol. - Activities of Daily Living: Pain interferes with walking, standing, and performing Salah (prayers), specifically when rising from a bent posture. - He wishes to maintain his current independence, particularly his ability to use the bathroom on his own. - Adverse Effects: The patient and his family expressed concern over the risks of repeated cortisone injections, specifically the potential to weaken bones and cause fractures. - Affect: The patient and his family report significant fear and apprehension regarding surgery, concerned it could lead to increased disability. - Aberrant Drug-Related Behaviors: No aberrant behaviors were noted or discussed. [facility] Medical History Suspected chronic obstructive pulmonary disease based on initial evaluation Anxiety Depression Social History (Updated 02/11/25 @ 10:36 by Katelin Domingo CMA) Household Members: Children Housing: House Do you presently have visiting nurse or other home services: Yes Patient Tobacco Use Status: Former Tobacco user service: No Physical Exam Vital Signs: Last Vital Signs Pulse 67 08/19/25 09:27 Resp 16 08/19/25 09:27 BP 137/66 08/19/25 09:27 Pulse Ox 95 08/19/25 09:27 Oxygen Delivery Method Room Air 08/19/25 09:27 BMI result Body Mass Index 30.6 Assessment & Plan Assessment & Plan (1) Spondylolisthesis, lumbar region: Code(s): M43.16 - Spondylolisthesis, lumbar region Category: Medical Plan Plan Patient was informed and verbally consented to the use of an ambient scribe for clinic note documentation during this visit. 1. Chronic Low Back Pain Secondary To Lumbar Spondylolisthesis - The patient's pain is mechanical in nature, caused by an unstable, slipped vertebra as seen on imaging. - It was explained that cortisone injections provide limited, temporary relief and that continued use carries risks, such as weakening of the bones. - Surgical intervention was strongly recommended as the definitive treatment to stabilize the spine, but the patient and his family declined due to fear of surgical complications. - The patient has opted to stop cortisone injections and has also refused surgery at this time. - Discussed continuing with current oral pain medications, meloxicam and Tylenol, though it was noted these are unlikely to fully resolve his mechanical pain. - Recommended conservative management including continued light activity such as walking or using an elliptical machine, and trying milk with turmeric for its anti-inflammatory properties. - The patient was counseled on red flag symptoms, including new leg weakness or loss of bowel/bladder control, and instructed to go to the emergency department immediately if these occur as they would necessitate emergency surgery. Discussion Notes I had a detailed discussion with the patient and his son regarding his chronic low back pain. Using his imaging, I explained that his pain is caused by an unstable, slipped vertebra (spondylolisthesis), which is causing mechanical pain and nerve irritation, particularly with movement. I advised that while we could continue cortisone injections, they are not an effective long-term solution as he only received minimal, short-term relief, and repeated injections carry risks like bone weakening. I strongly recommended surgical intervention as the definitive treatment option that would address the underlying instability. The patient and his son expressed significant fear of surgical risks, including potential disability, and ultimately decided to refuse both surgery and further cortisone injections at this time. I provided clear anticipatory guidance and return precautions, instructing them to seek immediate emergency care for any new onset of leg weakness or loss of bowel or bladder control, as this would indicate a need for emergency surgery. We agreed on conservative management with continued light activity and the addition of turmeric, and I invited them to return if they wish to reconsider surgery in the future. Patient Instructions - At this time, you have decided against having back surgery or receiving more cortisone injections. - Continue to stay active with light exercise, such as walking or using an elliptical machine, as keeping mobile is beneficial for your back. - You may try drinking milk with turmeric, as this can help reduce pain and inflammation. - Go to the emergency room immediately if you experience any new weakness in your legs, or if you lose control of your bowels (stool) or bladder (urine). These could be signs of a serious problem that requires emergency surgery. - You may schedule a follow-up visit anytime if you change your mind and wish to discuss surgery in the future. Coding Level of Care Code Est Pt Level 4 (83566) Diagnoses Spondylolisthesis, lumbar region M43.16
[2025-08-19 09:27] VITALS: BP 137/66; PULSE 67; RESP 16; O2SAT 95; BMI 30.6
--- OUTSIDE RECORDS SUMMARY | 2025-08-19 09:45 | XMS_ITS | Clinical Summary ---
Author Organization [facility] Address [address] [place] [phone] Phone Care Team Providers Care Recording Studio Setup Worker Name Role Phone Pcp, Unknown Primary Care [...] 1995 ZOSTER VACCINES (1 of 2) 2000 INFLUENZA VACCINE (#1) 2025 12/24/2024 COVID-19 VACCINE (2024-2 6 season) 2025 RSV VACCINE (1 - 1-dose 75+ series) [...] file Group ID:Not on file Type:Medicaid Address: [address] [facility] Care Teams Recording Studio Setup Worker Relationship Specialty Start Date End Date Pcp, Unknown PCP - General 10/05/24 Additional Source Comments The information contained in this document represents components of the legal health record. It is not the complete legal health record.[facility]
--- OUTSIDE RECORDS SUMMARY | 2025-08-19 09:45 | XMS_ITS | Clinical Summary ---
Author Organization [facility] Address [address] [place] [phone] Phone Care Team Providers Care Mechanical Engineering Draftsperson Name Role Phone Physician, No Pcp Primary [...] Health Maintenance Due Date Last Done Comments Colorectal Cancer Screening: Colonoscopy 1950 DTaP,Tdap,and Td Vaccines (1 - Tdap) 1969 Pneumococcal Vaccine: 50+ Ye ars (1 of 1 - PCV) 2000 Zoster Vaccines (1 of 2) 2000 Depression Screening 2024 Abdominal Aortic Aneurysm (A AA) Screen 09/25/2024 Cholesterol Screening (Lipid Panel) 09/25/2024 Falls Risk Assessment 09/25/2024 Hepatitis C Screening 09/25/2024 Social Influencers of Health Screening 09/25/2024 COVID-19 Vaccine ( - 2024-2 6 season) 2025 Influenza Vaccine (#1) 2025 RSV Immunization Adult Patie nts (1 - 1-dose 75+ series) 2025 HIB [...] to complete this topic Insurance MEDICAID - [place] Care Teams Mechanical Engineering Draftsperson Relationship Specialty Start Date End Date Physician, No Pcp PCP - General 09/26/24
--- OUTSIDE RECORDS SUMMARY | 2025-08-19 09:45 | XMS_ITS | Clinical Summary ---
Author Organization [facility] Address [address] [facility] [address] [place] [address] Care Team Providers Care Production Planner Scheduler Name Role Phone Name, Mehran NAJERA Primary Care Provider [phone] Allergies No known active allergies Medications * This document contains information received from the source organization and may not represent a complete record from that organization. atorvastatin (Lipitor) 20 MG tablet Take 1 tablet (20 mg) by mouth Once per day. 30 tablet 11 5 11/30/19 26 Active sertraline (Zoloft) 100 MG tablet Take 1 tablet (100 mg) by mouth Once per day. 30 tablet 11 5 12/25/19 26 Active Spacer/Aero-Hol ding Chambers deviceIndicatio ns:Oral thrush 1 Units if needed each day (with inhalers). 1 Device 5 Active meloxicam (Mobic) 7.5 MG tablet Take 1 tablet (7.5 mg) by mouth Once per day. 90 tablet 2 5 Active Memantine HCl ER 7 MG capsule sustained-relea se 24 hr Take 1 capsule (7 mg) by mouth Once per day. 90 capsule 3 08/03/2025 9:24 AM EST 5 06/21/20 26 Active fluticasone (Flonase) 50 MCG/ACT nasal spray Administer 2 sprays into each nostril Once per day. Shake gently. Before first use, prime pump. After use, clean tip and replace cap. 16 g 2 5 06/21/20 26 Active tiotropium (Spiriva HandiHaler) 18 MCG inhalation capsuleIndicati ons:Chronic cough Place 1 capsule (18 mcg) into inhaler and inhale in the morning. 30 capsule 11 5 06/21/20 26 Active budesonide-form oterol (Symbicort) 80-4.5 MCG/ACT inhaler Inhale 2 puffs in the morning and at bedtime. Rinse mouth with water after use to reduce aftertaste and incidence of candidiasis. Do not swallow. 1 each 11 08/03/2025 9:23 AM EST 06/21/20 26 Active omeprazole (PriLOSEC) [address] capsule TAKE ONE CAPSULE BY MOUTH ONCE DAILY BEFORE BREAKFAST DO NOT BREAK, CRUSH, DISSOLVE OR CHEW 90 capsule Active baclofen (Lioresal) 20 MG tablet TAKE 1/2 TABLET BY MOUTH ONCE DAILY AT BEDTIME NEEDED FOR MUSCLE SPASMS 15 tablet Active albuterol (Ventolin HFA) 108 (90 Base) MCG/ACT inhaler Inhale 2 puffs every 6 (six) hours if needed for wheezing. 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 Ran out of medication and been waiting for new patient appt to establish care. Discussed and given reassurance pt is on new patient list at [facility]. Hearing loss 10/12/2024 Vision loss 10/12/2024 Resolved Problems Problem Noted Date Diagnosed Date Resolved Date Chronic cough 11/26/2024 06/21/2025 Chronic midline low back pain 11/26/2024 06/21/2025 Overview (11/26/2024): Years with this problem, worse Screening for cholesterol level 11/26/2024 06/21/2025 Suspected chronic obstructiv e pulmonary disease based on initial evaluation 11/26/202403/2025 Hemoptysis 10/12/2024 06/21/2025 Assessment & Plan (10/12/2024 1:40 PM EST): Cough x2 weeks that keeps worsening with recent hemoptysis. On exam pt is tachypneic, hypoxic with O2 SAT 94%, involving accessory muscle use and seemingly in respiratory distress. Blood pressure is soft. Given above mentioned respiratory symptoms and presentation along th age will send pt to [facility] ER for further evaluation and treatment. Respiratory distress determi reji by examination 10/12/2024 06/21/2025 Assessment & Plan (10/12/2024 1:41 PM EST): Pt is tachypneic, hypoxic with O2 SAT 94%, involving accessory muscle use and appears to be in acute respiratory distress. Will send to [facility] ER for further evaluation and treatment. Encounters Date Type Department Care Team Description 07/15/2025 Refill [facility] [address] [place] [address] Mehran Edward MD 07/14/2025 Refill [facility] [address] [place] [id number] Mehran Edward MD 07/01/2025 9:30 AM EDT Immunization [address] [phone] Encounter for vaccination 07/01/2025 Travel 06/21/2025 11:00 AM EDT Office Visit [address] [address] Mehran Edward MD Spondylosis of lumbosacral spine at multiple levels with radiculopathy (Primary Dx); Chronic pain syndrome; Chronic obstructive pulmonary disease, unspecified COPD type (CMS/HCC) (HCC); Encounter for immunization; Chronic cough; Pre-diabetes; High cholesterol 06/21/2025 Telephone [facility] [address] [place] [phone] Mehran Edward MD Durable Medical Equipment 06/21/2025 Travel 06/20/[address] [address] Mehran Edward MD chart prep 06/01/2025 Refill [facility] [address] [place] [address] Name, MD Mehran from Last 3 Months Immunizations Immunization Administration Dates Next Due Influenza, High Dose Seasonal, Preservative Free 06/21/2025 Influenza, seasonal, injectable, preservative fr ee 12/24/2024 Pfizer Covid-19 Vaccine 12+ 07/01/2025 Pneumococcal Conjugate PCV 20 12/24/2024 Tdap 12/24/2024 [...] Sign Reading Time Taken Comments Blood Pressure 120/48 06/21/2025 11:30 AM EDT Pulse 80 06/21/2025 11:30 AM EDT Temperature 36.4 C (97.6 F) 06/21/2025 11:30 AM EDT Respiratory Rate 14 06/21/2025 11:3 0 AM EDT Oxygen Saturation 96% 06/21/2025 11: 30 AM EDT Inhaled Oxygen Concentration - - Weight 80.2 kg (176 lb 12.8 oz) 025 11:30 AM EDT Height 157.5 cm (5' 2 ) 03/23/2025 11:5 7 AM EDT Body Mass Index 32.34 03/23/2025 11:57 AM EDT Plan of Treatment Health Maintenance Due Date Last Done Comments CT Colonography 1950 Colonoscopy 1950 Colorectal Cancer Screening 1950 FIT DNA/Cologuard 1950 FIT 1950 FOBT 1950 Sigmoidoscopy 1950 Hepatitis C Screening 1968 RSV Patients and Patients Aged 60 years or older (1 - Risk 50-74 years 1-dose series) 2000 Zoster Vaccines (1 of 2) 2000 Depression Monitoring 09/23/2025 03/23/2025 , 03/23/2025 Alcohol/Substance Use Screening 11/26/2025 11/26/2024 SDOH Screening 11/26/2025 11/26/2024 COVID-19 Vaccine (2 - 2024-2 6 season) 2025 07/01/2025 Tobacco Screening 06/21/2026 06/21/2025 Diabetes: Hemoglobin A1C 06/23/2026 025, 03/23/2025 Lipid Panel 06/23/2030 06/23/2025, 11/26/2024 DTaP/Tdap/Td Vaccines (2 - T d or Tdap) 12/24/2034 12/24/2024 Pneumococcal Vaccine: 50+ Years Completed 12/24/2024 Influenza Vaccine Completed 06/21/2025, 12/24/2024 HIB Vaccines Aged Out No longer [...] Procedure Name Priority Date/Time Associated Diagnosis Comments HEMOGLOBIN A1C Routine 06/23/2025 9:56 AM EDT Pre-diabetes LIPID PANEL, STANDARD Routine 06/23/2025 9:56 AM EDT High cholesterol COMPREHENSIVE METABOLIC PANEL Routine 06/23/2025 9:56 AM EDT High cholesterol from Last 3 Months Results * (ABNORMAL) Hemoglobin A1c (06/23/2025 9:56 AM EDT) Hemoglobin A1c 6.4(H) <6.0 % [facility] Comment:Hemoglobin A1C Refer ence Range Adults: 4.8 - 6.0 % Non diabetic: < 6.0 % Goal: < 7.0 %Additional Action Suggested: > 8.0 %Note: Hemoglobin A1c results are invalid for patients with abnormal amounts of HbF. Blood transfusions may impact the HbA1c concentration in the patient sample. Estimated Average Glucose 137 mg/dL [facility] Comment:eAG = Estimated ave rage glucose which is %A1C expressed asaverage glucose, using the formula of the M1Q-MfxhybzStsuycs Glucose study (ADAG), Diabetes Care, Vol.31,#8,Apr. 2007 Blood Venous blood specimen / Unknown 06/23/2025 9:56 AM EDT 06/23/2025 11:09 AM EDT us Mehran Edward MD LAB BLOOD ORDERABLES Final Resul t Performing Organization Address [facility] Co de Phone Number [facility] [address] [place] [phone] * (ABNORMAL) Lipid Panel, Standard (06/23/2025 9:56 AM EDT) Triglycerides 76 <150 mg/dL [facility] Comment:Desirable Triglyceri de: less than 150 mg/dLBorderline High Triglyceride 150-199 mg/dLHigh Triglyceride: 200-499 mg/dLVery High Triglyceride: greater than or equal to 5OO mg/dL Cholesterol 110 <200 mg/dL [facility] Comment:Desirable Cholestero l: less than 200 mg/dLBorderline High Cholesterol: 200-239 mg/dLHigh Cholesterol: greater than 239 mg/dL LDL Cholesterol Calculated 71 <100 mg/dL [facility] Comment:Desirable LDL: less than 100 mg/dLNear Optimal/Above Optimal LDL: 110- 129 mg/dLBorderline High LDL: 130-159 mg/dLHigh LDL: 160-189 mg/dLVery High LDL: greater than or equal to 190 mg/dL HDL Cholesterol 24(L) >40 mg/dL [facility] Comment:Desirable HDL: great er than 40 mg/dL Note: This HDL assay may give artificially low results in patients with liver disease. Blood Venous blood specimen / Unknown 06/23/2025 9:56 AM EDT 06/23/2025 11:09 AM EDT us Mehran Edward MD LAB BLOOD ORDERABLES Final Resul t Performing Organization Address City/[facility]/ZIP Co de Phone Number [facility] [address] [place] [phone] * (ABNORMAL) Comprehensive Metabolic Panel (06/23/2025 9:56 AM EDT) Sodium 140 135 - 145 mmol/L [facility] Potassium 4.4 3.3 - 5.1 mmol/L [facility] Chloride 107 96 - 108 mmol/L [facility] Carbon Dioxide 30(H) 22 - 29 mmol/L [facility] Anion Gap 7(L) 12 - 20 [facility] Urea Nitrogen (BUN) 9 9 - 16 mg/dL [facility] Creatinine, Serum 0.60 0.5 - 1.4 mg/dL [facility] Estimated Glomerular Filt Rate >60 [facility] Comment:Chronic Kidney Disea se: Estimated GFR < 60 mL/min/1.80f2Olnlpv Kidney Disease: Estimated GFR < 15 mL/min/1.73m2 Glucose 105 60 - 115 mg/dL [facility] Calcium 9.2 8.4 - 10.2 mg/dL [facility] Bilirubin, Total 0.4 0.0 - 1.0 mg/dL [facility] Aspartate Amino Transferase 34 5 - 37 U/L [facility] Alanine Aminotransferase 27 0 - 40 U/L [facility] Total Protein 7.1 6.5 - 8.0 g/dL [facility] Albumin Level 4.1 3.5 - 5.0 g/dL [facility] Alkaline Phosphatase 72 39 - 117 U/L [facility] Blood Venous blood specimen / Unknown 06/23/2025 9:56 AM EDT 06/23/2025 11:09 AM EDT us Mehran Edward MD LAB BLOOD ORDERABLES Final Resul t [facility] [address] [place] [phone] from Last 3 Months Insurance [employer] [facility] STANDARD Care Teams Production Planner Scheduler Relationship Specialty Start Date End Date Name, MD Mehran [address] [place] [phone] PCP - General Internal Medicine 11/26/24
== END 2025-08-19 09:58 | disposition home or self-care (01) ==
LOC: HO.PMC 09:10
PROVIDERS: PCP Internal Medicine Geriatric Medicine; Visit Provider Internal Medicine
DX: M43.16 Spondylolisthesis, lumbar region (principal)
CPT/HCPCS: 99214

== ENCOUNTER → 2025-08-19 09:09 | Outpatient (BNVA) | payer MEDICAID, SELFPAY | PROVIDERS: PCP Internal Medicine Geriatric Medicine; Visit Provider Internal Medicine | DX: M43.16 Spondylolisthesis, lumbar region (principal) | CPT/HCPCS: 99212 ==

== ENCOUNTER 2025-08-31 15:08 | Outpatient (AMB) | payer MEDICAID, SELFPAY ==
--- NOTE | 2025-08-31 15:13 | MHC.OFFVIS ---
Vital Signs 08/31/25 15:22 08/31/25 16:02 Height 5 ft 5 in Weight 182 lb 15.739 oz BMI 30.4 BP 127/61 Blood Pressure Location Lt brachial Position Sitting Pulse 62 Pulse Oximetry (%) 97 Oxygen Delivery Method Room Air Intake Visit Reasons: Colonoscopy Screening Intake Note: Patient new consult for pre Colonoscopy screening. Patient cc: admits to constipation on and off, sometimes will go every other day, admits to straining, denies blood in stool, admits to gassy and bloated Dairy Department Manager Required: Yes Dairy Department Manager Services: Dairy Department Manager Offered & Declined (Daughter will interpret) Accompanied by: Daughter Allergies No Known Allergies Allergy (Verified 08/19/25 09:29) HPI HPI Colonoscopy Screening: Details: Patient is a 74-year-old male with PMH of anxiety, depression, COPD. Referred by PCP for pre colonoscopy screening and further evaluation of bloating/constipation. Patient is accompanied by his daughter who is translating during our visit. He reports the onset of constipation and bloating since December, with no identified changes in medication, diet, or lifestyle at that time. He has a bowel movement every other day or sometimes less frequently, and the stool is hard, requiring straining. He denies any blood in his stool. He experiences a nervous stomach feeling, which is relieved by warm drinks, but denies nausea or vomiting. He also reports regurgitation, particularly after consuming acidic foods. His primary care provider had previously advised him to start Colace and MiraLax and ordered H. pylori testing, which has not yet been completed. He has been taking omeprazole daily for the past two weeks for reflux symptoms. This will be the patient's first colonoscopy. He reports a negative stool-based colorectal cancer screening test more than 20 years ago. His appetite is stable, and his weight has slightly increased from 175 to 182 pounds. Past medical history is significant for COPD, for which he sees a biostatistics professor. He experiences shortness of breath with activity, which requires the use of an inhaler. Patient denies: fever/chills, n/v, appetite changes, dysphasia, unintentional wt loss, ab pain or melena/hematochezia. -tolerated anesthesia in the past without difficulty. [facility] Medical History (Updated 08/31/25 @ 16:47 by Thi Vallecillo CNP) Acid reflux Constipation Colon cancer screening Suspected chronic obstructive pulmonary disease based on initial evaluation Anxiety Depression Social History Household Members: Children Housing: House Do you presently have visiting nurse or other home services: Yes Patient Tobacco Use Status: Former Tobacco user service: No Review of Systems Const Reports as per HPI ENT Reports as per HPI Card Reports as per HPI Resp Reports as per HPI GI Reports as per HPI Reports as per HPI Physical Exam Vital Signs: Last Vital Signs Pulse 62 08/31/25 15:22 BP 127/61 08/31/25 15:22 BMI result Body Mass Index 30.4 Const General: healthy appearing, no acute distress and well developed Nutritional Appearance: average body habitus Orientation/consciousness: patient oriented x3 HEENT Head: Yes normal to inspection, Yes normocephalic and Yes atraumatic Face and sinus: Yes normal facial exam Eyes General: appearance normal, both eyes and all related structures Neck Neck: Yes normal visual inspection Resp Effort & Inspection: normal respiratory effort, able to speak in complete sentences, no tracheal deviation and symmetric chest movement Auscultation: clear to auscultation bilaterally Cardio Jugular venous distension: no JVD Rate: regular rate Rhythm: regular rhythm Heart sounds: S1 normal heart sound present, S2 normal heart sound present, no gallops and no murmurs GI Inspection: Yes normal to inspection and No distended Palpation (GI): Soft to palpation, not firm, nontender and No hepatosplenomegaly present Auscultation: normal bowel sounds Neuro General: patient oriented x3 Gait exam (Neuro): Normal gait present Psych Appearance: grossly normal Mental Status: mental status grossly normal Speech and movement: Normal speech and movement present Affect: normal affect Attitude: cooperative Thought process: Normal thought process present Thought content: Normal thought content present Insight: Good insight present (Psych) Judgement: Good judgement present (Psych) Assessment & Plan Assessment & Plan (1) Colon cancer screening: Code(s): Z12.11 - Encounter for screening for malignant neoplasm of colon Category: Medical Plan: A screening colonoscopy will be scheduled, likely for November or later, pending pulmonary clearance. - Due to the history of constipation, an enhanced prep protocol will be used, consisting of two laxative tablets at bedtime for five nights before the procedure, in addition to the standard split-dose PEG preparation. - The patient must follow a clear liquid diet the day before the procedure and be NPO for four hours prior to the procedure. (2) Constipation: Code(s): K59.00 - Constipation, unspecified Category: Medical Qualifiers: Constipation type: unspecified constipation type Qualified Code(s): K59.00 - Constipation, unspecified Plan: The patient was advised to take Miralax daily and stool softener tablets at bedtime to manage his constipation. - A low-FODMAP diet handout will be provided to help manage bloating. (3) Acid reflux: Code(s): K21.9 - Gastro-esophageal reflux disease without esophagitis Category: Medical Qualifiers: Esophagitis presence: esophagitis presence not specified Qualified Code(s): K21.9 - Gastro-esophageal reflux disease without esophagitis Plan: An upper endoscopy will be performed at the same time as the colonoscopy to evaluate his reflux symptoms. - To ensure accuracy for H. pylori testing, the patient will stop taking omeprazole for two weeks. - The patient has chosen to undergo a urea breath test instead of a stool test. - The breath test for H. pylori will be scheduled for two weeks from now. - A follow-up visit is scheduled in four weeks to review the results. (4) COPD (chronic obstructive pulmonary disease): Code(s): J44.9 - Chronic obstructive pulmonary disease, unspecified Category: Medical Qualifiers: COPD type: emphysema Emphysema type: unspecified Qualified Code(s): J43.9 - Emphysema, unspecified Plan: To ensure safety for sedation, the patient will be required to obtain clearance from his biostatistics professor before the colonoscopy and EGD procedure. Plan Follow-up: -Two weeks with RN/MA for H.pylori testing -provider follow up one week later or sooner as needed Time: I spent a total of 45 minutes on the date of encounter which includes: Preparing to see the patient (reviewed previous documentation, test results and medical history) Performing a medically appropriate exam and/or evaluation Ordering medications, tests, and procedures Documenting clinical information in the health record Orders: Orders H Pylori Breath Test Today K21.9 - Gastro-esophageal reflux disease without esophagitis, R14.0 - Abdominal distension (gaseous) Referrals GI Procedure Notification K21.9 - Gastro-esophageal reflux disease without esophagitis, Z12.11 - Encounter for screening for malignant neoplasm of colon Medications: New docusate sodium Take two tablet at bedtime 200 mg (2 x 100 mg) PO BEDTIME 180 caps 1RF constipation polyethylene glycol 3350 (Miralax) Take 17G (one cap full) daily with 8oz of water 17 grams PO DAILY 510 grams 2RF constipation 30 days bisacodyl Take two tablets at bedtime, starting five nights before colonoscopy 10 mg (2 x 5 mg) PO BEDTIME 10 tabs 0RF bisacodyl take four tablets once day of colonoscopy prep 20 mg (4 x 5 mg) PO ONCE 4 tabs 0RF peg 3350-electrolytes 236-22.74-6.74 -5.86 gram until fecal effluent is clear 240 mL PO ONCE 4,000 mL 0RF Coding Level of Care Code New Pt New Pt Level 4 (24196) Patient Type New Diagnoses Colon cancer screening Z12.11 Constipation, unspecified constipation type K59.00 Constipation type: unspecified constipation type Gastroesophageal reflux disease, unspecified whether esophagitis present K21.9 Esophagitis presence: esophagitis presence not specified Chronic obstructive pulmonary disease with emphysema, unspecified emphysema type J43.9 COPD type: emphysema Emphysema type: unspecified
[2025-08-31 15:22] VITALS: BP 127/61; PULSE 62; BMI 30.4
[2025-08-31 16:02] VITALS: O2SAT 97
--- OUTSIDE RECORDS SUMMARY | 2025-08-31 20:07 | XMS_ITS | Clinical Summary ---
Author Organization [facility] Address [address] [place] [phone] Phone Care Team Providers Care Tanning Wheel Filler Name Role Phone Physician, No Pcp Primary [...] on file Sexual Orientation Not on file Last Filed Vital Signs Vital Sign Reading [...] Influencers of Health Screening 09/25/2024 COVID-19 Vaccine (1 - 2024-2 6 season) 2025 Influenza Vaccine [...] to complete this topic Insurance [place] Care Teams Tanning Wheel Filler Relationship Specialty Start Date End Date Physician, No Pcp PCP - General 09/26/24
--- OUTSIDE RECORDS SUMMARY | 2025-08-31 20:07 | XMS_ITS | Clinical Summary ---
Author Organization [facility] Address [address] [place] [phone] Phone Care Team Providers Care White Shoe Examiner Name Role Phone Pcp, Unknown Primary Care [...] file Group ID:Not on file Type:Medicaid Address: [address] [facility] Care Teams White Shoe Examiner Relationship Specialty Start Date End Date Pcp, Unknown PCP - General 10/05/24 Additional Source Comments The information contained in this document represents components of the legal health record. It is not the complete legal health record.[facility]
--- OUTSIDE RECORDS SUMMARY | 2025-08-31 20:07 | XMS_ITS | Clinical Summary ---
Author Organization [employer] Address [address] [place] [address] Care Team Providers Care Chief Librarian Circulation Department Name Role Phone Name, Mehran NAJERA Primary Care Provider [phone] Allergies No known active allergies Medications * [...] pt is on new patient list at [facility]. 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); Chronic pain syndrome; Chronic obstructive pulmonary disease, unspecified COPD type (CMS/HCC) (HCC); Encounter for immunization; Chronic cough; Pre-diabetes; High cholesterol 06/21/2025 Telephone [facility] [address] [place] [phone] Mehran Edward MD Durable Medical Equipment 06/21/2025 Travel 06/20/[address] [address] Mehran Edward MD chart prep 06/01/2025 Refill [facility] [address] [place] [address] Name, MD Mehran from Last 3 Months [...] AM EDT) Hemoglobin A1c 6.4(H) <6.0 % [facility] Comment:Hemoglobin A1C Refer ence Range Adults: 4.8 - 6.0 % Non diabetic: < 6.0 % Goal: < 7.0 %Additional Action Suggested: > 8.0 %Note: Hemoglobin A1c results are invalid for patients with abnormal amounts of HbF. Blood transfusions may impact the HbA1c concentration in the patient sample. Estimated Average Glucose 137 mg/dL [facility] Comment:eAG = Estimated ave rage glucose which is %A1C expressed asaverage glucose, using the formula of the Q4D-ChnaymiUbuwdfi Glucose study (ADAG), Diabetes Care, Vol.31,#8,Apr. 2007 Blood Venous blood specimen / Unknown 06/23/2025 9:56 AM EDT 06/23/2025 11:09 AM EDT us Mehran Edward MD LAB BLOOD ORDERABLES Final Resul t Performing Organization Address [facility] Co de Phone Number [facility] [address] [place] [phone] * (ABNORMAL) Lipid Panel, Standard (06/23/2025 9:56 AM EDT) Triglycerides 76 <150 mg/dL [facility] Comment:Desirable Triglyceri de: less than 150 mg/dLBorderline High Triglyceride 150-199 mg/dLHigh Triglyceride: 200-499 mg/dLVery High Triglyceride: greater than or equal to 5OO mg/dL Cholesterol 110 <200 mg/dL [facility] Comment:Desirable Cholestero l: less than 200 mg/dLBorderline High Cholesterol: 200-239 mg/dLHigh Cholesterol: greater than 239 mg/dL LDL Cholesterol Calculated 71 <100 mg/dL [facility] Comment:Desirable LDL: less than 100 mg/dLNear Optimal/Above Optimal LDL: 110- 129 mg/dLBorderline High LDL: 130-159 mg/dLHigh LDL: 160-189 mg/dLVery High LDL: greater than or equal to 190 mg/dL HDL Cholesterol 24(L) >40 mg/dL [facility] Comment:Desirable HDL: great er than 40 mg/dL Note: This HDL assay may give artificially low results in patients with liver disease. Blood Venous blood specimen / Unknown 06/23/2025 9:56 AM EDT 06/23/2025 11:09 AM EDT us Mehran Edward MD LAB BLOOD ORDERABLES Final Resul t Performing Organization Address City/[facility]/ZIP Co de Phone Number [facility] [address] [place] [address] [phone] * (ABNORMAL) Comprehensive Metabolic Panel (06/23/2025 9:56 AM EDT) Sodium 140 135 - 145 mmol/L [facility] Potassium 4.4 3.3 - 5.1 mmol/L [facility] Chloride 107 96 - 108 mmol/L [facility] Carbon Dioxide 30(H) 22 - 29 mmol/L [facility] Anion Gap 7(L) 12 - 20 [facility] Urea Nitrogen (BUN) 9 9 - 16 mg/dL [facility] Creatinine, Serum 0.60 0.5 - 1.4 mg/dL [facility] Estimated Glomerular Filt Rate >60 [facility] Comment:Chronic Kidney Disea se: Estimated GFR < 60 mL/min/[id number] Kidney Disease: Estimated GFR < 15 mL/min/1.73m2 Glucose 105 60 - 115 mg/dL [facility] Calcium 9.2 8.4 - 10.2 mg/dL [facility] Bilirubin, Total 0.4 0.0 - 1.0 mg/dL [facility] Aspartate Amino Transferase 34 5 - 37 U/L [facility] Alanine Aminotransferase 27 0 - 40 U/L [facility] Total Protein 7.1 6.5 - 8.0 g/dL [facility] Albumin Level 4.1 3.5 - 5.0 g/dL [facility] Alkaline Phosphatase 72 39 - 117 U/L [facility] Blood Venous blood specimen / Unknown 06/23/2025 9:56 AM EDT 06/23/2025 11:09 AM EDT us Mehran Edward MD LAB BLOOD ORDERABLES Final Resul t [facility] [address] [place] [phone] from Last 3 Months Insurance [employer] [facility] STAND[employer] Care Teams Chief Librarian Circulation Department Relationship Specialty Start Date End Date Name, MD Mehran [address] [place] [phone] PCP - General Internal Medicine 11/26/24
== END 2025-08-31 16:10 | disposition home or self-care (01) ==
LOC: HO.HGI 15:09
PROVIDERS: Visit Provider Nurse Practitioner Family
DX: Z01.818 Encounter for other preprocedural examination (principal); Z12.11 Encounter for screening for malignant neoplasm of colon; K59.00 Constipation, unspecified; K21.9 Gastro-esophageal reflux disease without esophagitis; J43.9 Emphysema, unspecified
CPT/HCPCS: 99204

== ENCOUNTER → 2025-08-31 15:08 | Outpatient (BNVA) | payer MEDICAID, SELFPAY | PROVIDERS: Visit Provider Nurse Practitioner Family | DX: Z12.11 Encounter for screening for malignant neoplasm of colon (principal); K59.00 Constipation, unspecified; K21.9 Gastro-esophageal reflux disease without esophagitis; J43.9 Emphysema, unspecified; R14.0 Abdominal distension (gaseous) | CPT/HCPCS: 99212 ==